=== PATIENT | male | born 1985 | race Caucasian/White ===

== ENCOUNTER → 2018-02-01 | Outpatient (CLI) | payer OTHER | LOC: M PAIN 09:45 | DX: M96.1 Postlaminectomy syndrome, not elsewhere classified (principal); M54.16 Radiculopathy, lumbar region; M46.1 Sacroiliitis, not elsewhere classified; M10.9 Gout, unspecified; K21.9 Gastro-esophageal reflux disease without esophagitis; Z79.899 Other long term (current) drug therapy | CPT/HCPCS: G0463 ==

== ENCOUNTER → 2018-02-18 | Outpatient (CLI) | payer OTHER ==
[~2018-02-18] MED LIST: BUPIVACAINE HCL 0.25% 30 ML VIAL As Ordered; ISOVUE-M 300 61% 15ML VIAL (Q9967) As Ordered; LIDOCAINE 1% SDV INJ 30 ML VIAL As Ordered; TRIAMCINOLONE ACETONIDE SUSP 40 MG/ML VIAL (J3301) As Ordered; diazePAM 5 MG TAB As Ordered; oxyCODONE 5MG TAB As Ordered
== END ==
LOC: M PAIN 14:30
DX: M46.1 Sacroiliitis, not elsewhere classified (principal); M10.9 Gout, unspecified; G47.30 Sleep apnea, unspecified; K21.9 Gastro-esophageal reflux disease without esophagitis; F43.10 Post-traumatic stress disorder, unspecified; Z79.891 Long term (current) use of opiate analgesic; Z79.899 Other long term (current) drug therapy; Z87.891 Personal history of nicotine dependence
CPT/HCPCS: J3301

== ENCOUNTER → 2018-04-01 | Outpatient (CLI) | payer OTHER | LOC: M PAIN 08:45 | DX: M96.1 Postlaminectomy syndrome, not elsewhere classified (principal); M54.16 Radiculopathy, lumbar region; M46.1 Sacroiliitis, not elsewhere classified; G47.30 Sleep apnea, unspecified; K21.9 Gastro-esophageal reflux disease without esophagitis; F43.10 Post-traumatic stress disorder, unspecified; Z79.899 Other long term (current) drug therapy; Z79.1 Long term (current) use of non-steroidal anti-inflammatories (NSAID) | CPT/HCPCS: G0463 ==

== ENCOUNTER → 2018-04-06 | Outpatient (CLI) | payer OTHER | LOC: M RAD 10:58 | DX: M96.1 Postlaminectomy syndrome, not elsewhere classified (principal) | CPT/HCPCS: 73721 ==

== ENCOUNTER → 2018-04-18 | Outpatient (CLI) | payer OTHER | LOC: M PAIN 09:45 | DX: M87.051 Idiopathic aseptic necrosis of right femur (principal); M54.16 Radiculopathy, lumbar region; M46.1 Sacroiliitis, not elsewhere classified; G47.30 Sleep apnea, unspecified; F43.10 Post-traumatic stress disorder, unspecified; F17.220 Nicotine dependence, chewing tobacco, uncomplicated; Z79.899 Other long term (current) drug therapy; Z87.39 Personal history of other diseases of the musculoskeletal system and connective tissue | CPT/HCPCS: G0463 ==

== ENCOUNTER → 2018-05-31 | Outpatient (CLI) | payer OTHER ==
--- NOTE | 2018-06-20 01:56 | ECWPNPC ---
PATIENT NAME: ISADORA MOLINA : 1985 GENDER: MALE VISIT DATE: 05/31/2018 DISCHARGE DATE: 05/31/18 1553 VISIT LOCKED DATE TIME: PHYSICIAN: NICCI BALBUENA RESOURCE: NICCI BALBUENA REASON FOR APPOINTMENT 1. BILATERAL HIP PAIN HISTORY OF PRESENT ILLNESS DEPRESSION SCREENING: PHQ-2 IN LAST TWO WEEKS HAVE YOU BEEN BOTHERED BY LITTLE INTEREST OR PLEASURE IN DOING THINGSNO FEELING DOWN, DEPRESSED, OR HOPELESSNO HISTORY OF PRESENT ILLNESS: HERE FOR F/U AND MEDICINE MANAGEMENT FOR BILATERAL HIP PAIN WITH HISTORY OF AVASCULAR NECROSIS.SCHEDULED FOR TOTAL RIGHT HIP REPLACEMENT IN THE NEXT TWO WEEKS.RAING LOW BACK AND RIGHT HIPPAIN 02/01.DESCRIBES PAIN SHARP AND SHOOTING.PAIN AWAKENS HIM FROM SLEEP. PAIN THE PATIENT DESCRIBES THE PAIN... FALL RISK SCREENING: SCREENING :NO FALLS IN THE PAST YEAR CURRENT MEDICATIONS TAKING ALLOPURINOL 300 MG TABLET 2 TABLET ORALLY ONCE A DAY TAKING COLCHICINE 0.6 MG TABLET ONE TAB ORALLY EVERY 12 HOURS PRN PAIN TAKING TIZANIDINE HCL 2 MG TABLET 1 TABLET NEEDED ORALLY TAKE 1 IN AM AND 2 AT BEDTIME TAKING TRAMADOL HCL 50 MG TABLET 1 -2 TABLETS ORALLY EVERY 6 HRS PRN PAIN MDD=3 TAKING PERCOCET 10-325 MG TABLET 1 TABLET NEEDED ORALLY BID NOT-TAKING TRAMADOL HCL 50 MG TABLET 1 -2 TABLET NEEDED ORALLY Q 8SRS PRN PAIN MDD=3, NOTES: DUPLICATE MEDICATION LIST REVIEWED AND RECONCILED WITH THE PATIENT PAST MEDICAL HISTORY CHRONIC LOW BACK PAIN GOUT SLEEP APNEA WITH CPAP REFLUX PTSD ALLERGIES N.K.D.A. SURGICAL HISTORY SPINAL FUSION X 2 FAMILY HISTORY MATERNAL GRAND FATHER: DIAGNOSED WITH HEART DISEASE MATERNAL GRAND MOTHER: DIAGNOSED WITH DIABETES SOCIAL HISTORY GENERAL: TOBACCO USE ARE YOU A:NONSMOKER ADDITIONAL FINDINGS: TOBACCO USER QUIT CHEWING 2-3 WEEKS AGO ALCOHOL SCREENING DID YOU HAVE A DRINK CONTAINING ALCOHOL IN THE PAST YEAR?YES HOW OFTEN DID YOU HAVE A DRINK CONTAINING ALCOHOL IN THE PAST YEAR?MONTHLY OR LESS (1 POINT) POINTS1 INTERPRETATIONNEGATIVE RECREATIONAL DRUG USE DRUG USE?NO CAFFEINE CAFFEINE USE?YES HOW OFTEN AND HOW MUCH? [employer] EPISCOPAL [id number] NONE LANGUAGE LANGUAGES SPOKEN:GUYANESE LEARNING BARRIERS / SPECIAL NEEDS BARRIERS TO LEARNING?NO HEARING IMPAIRED?NO VISION IMPAIRED?NO COGNITIVELY IMPAIRED?NO READINESS TO LEARN?YES LEARNING PREFERENCES?NO LEARNING CAPABILITIES PRESENT?YES EMOTIONAL BARRIERS?NO SPECIAL DEVICES?YES :[facility] PFS, CLERGY, PUBLIC HEALTH REFERRALS PFS REFERRAL NEEDED?NO CLERGY REFERRAL NEEDED?NO PUBLIC HEALTH REFERRAL NEEDED?NO WAS THE PROVIDER NOTIFIED OF ANY PERTINENT INFO?NO HAS THE PATIENT BEEN EDUCATED REGARDING HIS/HER PLAN OF CARE?YES HAS THE PATIENT BEEN EDUCATED REGARDING PAIN, THE RISK FOR PAIN, THE IMPORTANCE OF EFFECTIVE PAIN MANAGEMENT, AND THE PAIN ASSESSMENT PROCESS?YES ADVANCE DIRECTIVE ADVANCE DIRECTIVE DISCUSSED WITH PATIENT:YES PT HAS NO ADVANCED DIRECTIVES, DECLINES INFORMATION ON HCP AT THIS TIME REVIEWED WITH PT 02/18/18 7967 LASREVIEWED WITH PATIENT 04/18/18 1009 JSREVIEWED WITH PATIENT 05/31/18 1523 JS. HOSPITALIZATION/MAJOR DIAGNOSTIC PROCEDURE SEE ABOVE REVIEW OF SYSTEMS REVIEWED BY: PROVIDER: NICCI JOY . CONSTITUTIONAL: ANY CHANGE IN YOUR MEDICAL CONDITION? NO . CHILLS NO . FEVER NO . INFECTION: DO YOU HAVE NEW INFECTIONS? NO . DO YOU HAVE HISTORY OF MRSA? NO . MUSCULOSKELETAL: ANY NEW PATTERNS OF PAIN OR NUMBNESS? PATIENT STATES PAIN 7-02/01 TO LOWER BACK AND RIGHT HIP, DOWN RIGHT LEG. STATES TOTAL HIP REPLACEMENT TO RIGHT HIP SCHEDULED 06/11/18 . GASTROENTEROLOGY: ANY NEW CHANGE IN BOWEL CONTROL? NO . GENITOURINARY: ANY NEW CHANGE IN BLADDER CONTROL? NO . IS THERE A CHANCE YOU COULD BE ? NO . HEMATOLOGY/LYMPH: DO YOU TAKE ANY BLOOD THINNERS? (FOR EXAMPLE- COUMADIN, PLAVIX, AGGRENOX, PLATEL, PRADAXA, OR XARELTO) NO . WHEN WAS YOUR LAST DOSE? DATE: TIME: . NEUROLOGY: HAVE YOU FALLEN IN THE PAST 6 MONTHS? NO . ANY NEW EXTREMITY NUMBNESS OR WEAKNESS? NO . CARDIOLOGY: DO YOU HAVE A PACEMAKER OR DEFIBRILLATOR? NO . RESPIRATORY: HAVE YOU BEEN SICK IN THE PAST WEEK? NO . FEVER NO . FLU LIKE SYMPTOMS? NO . COUGH NO . INTEGUMENTARY: DO YOU HAVE ANY RASHES OR OPEN SORES? NO . ALLERGIC/IMMUNO: ARE YOU ALLERGIC TO SHELLFISH OR IV DYE? NO . ANY NEW ALLERGIES? NO . PSYCHIATRIC: DO YOU HAVE THOUGHTS OF HURTING YOURSELF OR SOMEONE ELSE? NO . ARE YOU ABUSED, NEGLECTED, OR IN AN UNSAFE ENVIRONMENT? NO . ENDOCRINOLOGY: ARE YOU DIABETIC? NO . OTHER: DO YOU NEED ANY PRESCRIPTIONS? NO . IF YES, PLEASE LIST: ____ . ANY NEW PROBLEMS WITH YOUR MEDICATIONS? NO . WHEN DID YOU LAST EAT? ____ . WHEN DID YOU LAST DRINK? ____ . WHAT DID YOU LAST DRINK? ____ . NAME OF PERSON DRIVING YOU HOME? ____ . DO YOU HAVE ANY OTHER QUESTIONS OR CONCERNS NO . VITAL SIGNS WT 239 LBS, HT 67 IN, BMI 37.43 INDEX, BP 135/77 MM HG, HR 89 /MIN, RR 16 /MIN, TEMP 97.1 F, OXYGEN SAT % 95, SAFE IN ENV? (Y/N) YES, REVIEWED BY: EM. EXAMINATION GENERAL EXAMINATION: GENERAL APPEARANCE:AWAKE,ALERT ,PLEAASANT . PSYCHAFFECT NORMAL . LUNGS:LUNG ALEMAN ARE CLEAR TO AUSCULTATION BILATERALLY. GOOD MOVEMENT OF AIR . HEART:S1, S2 IN A REGULAR RATE AND RHYTHM. NO SIGNIFICANT MURMURS, RUBS OR GALLOPS NOTED . MUSCULOSKELETAL:MUSCLE STRENGTH TESTING 5/5 BILATERAL LOWER EXTREMITIES. LUMBAR SACRAL SPINEPALPATION: + FOR PAIN OVER L/S SPINE. + FOR PAIN OVER L/S PARSPINALS. 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 (REF # [id number] ) BRINGS IN MEDICATIONS WHICH IS APPROPRIATE FOR WHAT WAS DISPENSED. RECENT URINE TOXICOLOGY REVIEWED. NO UNAUTHORIZED MEDICATIONS. NO ILLICIT SUBSTANCES AND PRESCRIBED MEDICATIONS WERE PRESENT. , RISKS AND BENEFITS OF NARCOTIC/OPIOD MEDICATIONS WERE REVIEWED WITH PATIENT - THIS INCLUDES BUT IS NOT LIMITED TO RISK OF DEPENDANCE/DEVELOPMENT OF ADDICTION, MOOD DISTURBANCE AND DEPRESSION, OSTEOPOROSIS, HORMONAL AND LABIDAL CHANGES, RESPIRATORY DEPRESSION AND . PATIENT IS ADVISED NOT TO DRIVE OR DRINK ALCOHOL WHILE ON THESE MEDICATIONS. PREVENTIVE MEDICINE PAIN CLINIC TEACHING: MEDICATIONS PRINTED AND REVIEWED INFORMATION ON NEW MEDICATION, AMITRIPTYLINE. PATIENT VERBALIZED AN UNDERSTANDING. ARABELLA CAMARGO 05/31/2018 3:54:06 PM > . DISPOSITION & COMMUNICATION FOLLOW UP 3 MONTHS ELECTRONICALLY SIGNED BY BENITA HOOKER ON 06/19/2018 AT 01:14 PM EST DISCLAIMER : THIS IS A VISIT SUMMARY EXTRACTED FROM THE [employer] CHART. IT IS NOT A COPY OF THE [employer] PROGRESS NOTE. ESHTER
== END ==
LOC: M PAIN 15:15
PROVIDERS: ATTEND Nurse Practitioner Family
DX: M87.051 Idiopathic aseptic necrosis of right femur (principal); G47.30 Sleep apnea, unspecified; F43.10 Post-traumatic stress disorder, unspecified; F17.220 Nicotine dependence, chewing tobacco, uncomplicated; E66.01 Morbid (severe) obesity due to excess calories; Z68.37 Body mass index [BMI] 37.0-37.9, adult; Z79.891 Long term (current) use of opiate analgesic; Z79.899 Other long term (current) drug therapy; Z87.39 Personal history of other diseases of the musculoskeletal system and connective tissue

== ENCOUNTER → 2018-08-29 | Outpatient (CLI) | payer OTHER ==
--- NOTE | 2018-09-16 00:18 | ECWPNPC ---
PATIENT NAME: ISADORA MOLINA : 1985 GENDER: MALE VISIT DATE: 08/29/2018 DISCHARGE DATE: 08/29/18 1614 VISIT LOCKED DATE TIME: PHYSICIAN: NICCI BALBUENA RESOURCE: NICCI BALBUENA REASON FOR APPOINTMENT 1. BILATERAL HIP PAIN HISTORY OF PRESENT ILLNESS HISTORY OF PRESENT ILLNESS: HERE FOR F/U OF CHRONIC LOW BACK PAIN.HAD RIGHT HIP REPLACEMENT ON 05/2018.RIGHT HIP FEELS BETTER.CONTINUES TO HAVE SEVERE LOW BACK PAIN.HX 2 LUMBAR FUSIONS L4/5 AND ONE L5/S1.LAST SURGERY APPROXIMATLEY 1 YEAR AGO.HAS LOW BACK PAIN WITH SHOOTING PAIN BILATERAL LOWER EXTREMITIES.RATING PAIN VAS 6/10. PAIN THE PATIENT DESCRIBES THE PAIN... FALL RISK SCREENING: SCREENING : NO FALLS IN THE PAST YEAR. CURRENT MEDICATIONS TAKING ALLOPURINOL 300 MG TABLET 2 TABLET ORALLY ONCE A DAY TAKING COLCHICINE 0.6 MG TABLET ONE TAB ORALLY EVERY 12 HOURS PRN PAIN TAKING TIZANIDINE HCL 2 MG TABLET 1 TABLET NEEDED ORALLY TAKE 1 IN AM AND 2 AT BEDTIME TAKING PERCOCET 10-325 MG TABLET 1 TABLET NEEDED ORALLY BID TAKING AMITRIPTYLINE HCL 25 MG TABLET 1 TO 2 TAB ORALLY BEFORE BEDTIME TAKING TRAMADOL HCL 50 MG TABLET 1 -2 TABLETS ORALLY EVERY 6 HRS PRN PAIN MDD=3 NOT-TAKING TRAMADOL HCL 50 MG TABLET 1 -2 TABLET NEEDED ORALLY Q 8SRS PRN PAIN MDD=3, NOTES: DUPLICATE MEDICATION LIST REVIEWED AND RECONCILED WITH THE PATIENT PAST MEDICAL HISTORY CHRONIC LOW BACK PAIN GOUT SLEEP APNEA WITH CPAP REFLUX PTSD ALLERGIES N.K.D.A. SURGICAL HISTORY SPINAL FUSION X 2 TOTAL RIGHT HIP FAMILY HISTORY MATERNAL GRAND FATHER: DIAGNOSED WITH HEART DISEASE MATERNAL GRAND MOTHER: DIABETES SOCIAL HISTORY GENERAL: TOBACCO USE ARE YOU A:NONSMOKER ADDITIONAL FINDINGS: TOBACCO USER QUIT CHEWING 2-3 WEEKS AGO ALCOHOL SCREENING DID YOU HAVE A DRINK CONTAINING ALCOHOL IN THE PAST YEAR?YES HOW OFTEN DID YOU HAVE A DRINK CONTAINING ALCOHOL IN THE PAST YEAR?MONTHLY OR LESS (1 POINT) POINTS1 INTERPRETATIONNEGATIVE RECREATIONAL DRUG USE DRUG USE?NO CAFFEINE CAFFEINE USE?YES HOW OFTEN AND HOW MUCH? [employer]ERS VOODOO [id number] NONE LANGUAGE LANGUAGES SPOKEN:UPPER SORBIAN LEARNING BARRIERS / SPECIAL NEEDS BARRIERS TO LEARNING?NO HEARING IMPAIRED?NO VISION IMPAIRED?NO COGNITIVELY IMPAIRED?NO READINESS TO LEARN?YES LEARNING PREFERENCES?NO LEARNING CAPABILITIES PRESENT?YES EMOTIONAL BARRIERS?NO SPECIAL DEVICES?YES :[facility] PFS, CLERGY, PUBLIC HEALTH REFERRALS PFS REFERRAL NEEDED?NO CLERGY REFERRAL NEEDED?NO PUBLIC HEALTH REFERRAL NEEDED?NO WAS THE PROVIDER NOTIFIED OF ANY PERTINENT INFO?NO HAS THE PATIENT BEEN EDUCATED REGARDING HIS/HER PLAN OF CARE?YES HAS THE PATIENT BEEN EDUCATED REGARDING PAIN, THE RISK FOR PAIN, THE IMPORTANCE OF EFFECTIVE PAIN MANAGEMENT, AND THE PAIN ASSESSMENT PROCESS?YES ADVANCE DIRECTIVE ADVANCE DIRECTIVE DISCUSSED WITH PATIENT:YES PT HAS NO ADVANCED DIRECTIVES, DECLINES INFORMATION ON HCP AT THIS TIME REVIEWED WITH PT 02/18/18 5301 LASREVIEWED WITH PATIENT 04/18/18 1009 JSREVIEWED WITH PATIENT 05/31/18 1523 JS. HOSPITALIZATION/MAJOR DIAGNOSTIC PROCEDURE SEE ABOVE REVIEW OF SYSTEMS REVIEWED BY: PROVIDER: NICCI JOY . CONSTITUTIONAL: ANY CHANGE IN YOUR MEDICAL CONDITION? NO . CHILLS NO . FEVER NO . INFECTION: DO YOU HAVE NEW INFECTIONS? NO . DO YOU HAVE HISTORY OF MRSA? NO . MUSCULOSKELETAL: ANY NEW PATTERNS OF PAIN OR NUMBNESS? NO . GASTROENTEROLOGY: ANY NEW CHANGE IN BOWEL CONTROL? NO . GENITOURINARY: ANY NEW CHANGE IN BLADDER CONTROL? NO . IS THERE A CHANCE YOU COULD BE ? NO . HEMATOLOGY/LYMPH: DO YOU TAKE ANY BLOOD THINNERS? (FOR EXAMPLE- COUMADIN, PLAVIX, AGGRENOX, PLATEL, PRADAXA, OR XARELTO) NO . WHEN WAS YOUR LAST DOSE? DATE: TIME: . NEUROLOGY: HAVE YOU FALLEN IN THE PAST 12 MONTHS? YES SLIPPED ON ICE 2 DAYS AGO , YES . ANY NEW EXTREMITY NUMBNESS OR WEAKNESS? NO . CARDIOLOGY: DO YOU HAVE A PACEMAKER OR DEFIBRILLATOR? NO . RESPIRATORY: HAVE YOU BEEN SICK IN THE PAST WEEK? NO . FEVER NO . FLU LIKE SYMPTOMS? NO . COUGH NO . INTEGUMENTARY: DO YOU HAVE ANY RASHES OR OPEN SORES? NO . ALLERGIC/IMMUNO: ARE YOU ALLERGIC TO IV DYE? NO . ANY NEW ALLERGIES? NO . PSYCHIATRIC: DO YOU HAVE THOUGHTS OF HURTING YOURSELF OR SOMEONE ELSE? NO . ARE YOU ABUSED, NEGLECTED, OR IN AN UNSAFE ENVIRONMENT? NO . ENDOCRINOLOGY: ARE YOU DIABETIC? NO . OTHER: DO YOU NEED ANY PRESCRIPTIONS? YES PT REQUESTING OXY CODONE . IF YES, PLEASE LIST: ____ . ANY NEW PROBLEMS WITH YOUR MEDICATIONS? NO . WHEN DID YOU LAST EAT? ____ . WHEN DID YOU LAST DRINK? ____ . WHAT DID YOU LAST DRINK? ____ . NAME OF PERSON DRIVING YOU HOME? ____ . DO YOU HAVE ANY OTHER QUESTIONS OR CONCERNS NO . EXAMINATION GENERAL EXAMINATION: GENERAL APPEARANCE:AWAKE,ALERT ,PLEAASANT . PSYCHAFFECT NORMAL . LUNGS:LUNG ALEMAN ARE CLEAR TO AUSCULTATION BILATERALLY. GOOD MOVEMENT OF AIR . HEART:S1, S2 IN A REGULAR RATE AND RHYTHM. NO SIGNIFICANT MURMURS, RUBS OR GALLOPS NOTED . MUSCULOSKELETAL:MUSCLE STRENGTH TESTING 5/5 BILATERAL LOWER EXTREMITIES. LUMBAR SACRAL SPINEPALPATION: + FOR PAIN OVER L/S SPINE. + FOR PAIN OVER L/S PARSPINALS.WELL HEALED SURGICAL SCAR L/S SPINE. ASSESSMENTS POST LAMINECTOMY SYNDROME - M96.1 (PRIMARY) TREATMENT POST LAMINECTOMY SYNDROME CONTINUE TRAMADOL HCL TABLET, 50 MG, 1 -2 TABLETS, ORALLY, EVERY 6 HRS PRN PAIN MDD=3 CONTINUE AMITRIPTYLINE HCL TABLET, 25 MG, 1 TO 2 TAB, ORALLY, BEFORE BEDTIME CONTINUE TIZANIDINE HCL TABLET, 2 MG, 1 TABLET NEEDED, ORALLY, TAKE 1 IN AM AND 2 AT BEDTIME NOTES: DCS INFO GIVEN. PROCEDURE CODES FA211 ESTABILISHED PATIENT [facility] CHARGE DISPOSITION & COMMUNICATION FOLLOW UP DR GONSALVES TALK ABOUT DCS ELECTRONICALLY SIGNED BY BENITA HOOKER ON 09/15/2018 AT 03:50 PM EDT DISCLAIMER : THIS IS A VISIT SUMMARY EXTRACTED FROM THE [employer] CHART. IT IS NOT A COPY OF THE [employer] PROGRESS NOTE. ESTHER
== END ==
LOC: M PAIN 14:30
PROVIDERS: ATTEND Nurse Practitioner Family
DX: M96.1 Postlaminectomy syndrome, not elsewhere classified (principal); G47.30 Sleep apnea, unspecified; F43.10 Post-traumatic stress disorder, unspecified; F17.220 Nicotine dependence, chewing tobacco, uncomplicated; Z79.891 Long term (current) use of opiate analgesic; Z79.899 Other long term (current) drug therapy; Z87.39 Personal history of other diseases of the musculoskeletal system and connective tissue; Z96.641 Presence of right artificial hip joint

== ENCOUNTER → 2018-09-16 | Outpatient (CLI) | payer OTHER ==
--- NOTE | 2018-09-29 23:32 | ECWPNPC ---
PATIENT NAME: ISADORA MOLINA : 1985 GENDER: MALE VISIT DATE: 09/16/2018 DISCHARGE DATE: 09/16/18 1141 VISIT LOCKED DATE TIME: PHYSICIAN: SHE GONSALVES MD RESOURCE: SHE GONSALVES MD REASON FOR APPOINTMENT 1. BILATERAL HIP PAIN PER LB HISTORY OF PRESENT ILLNESS HISTORY OF PRESENT ILLNESS: PAIN THE PATIENT DESCRIBES THE PAIN... 33 YEAR OLD MALE PATIENT WITH A HISTORY OF CHRONIC LOW BACK PAIN. THE PATIENT DESCRIBES THE PAIN ACHING, SHARP, STABBING, SHOOTING, AND CONTINUOUS WITH A PAIN SCORE OF 5-8/10 DEPENDING ON PHYSICAL ACTIVITY. THE PATIENT HAS A HISTORY OF BACK SURGERY, BUT SAYS THE PAIN PERSISTED AFTER THE SURGERY. THE PATIENT SAYS THAT HE ALSO HAS PAIN IN HIS HIPS AND HAD A RIGHT HIP REPLACEMENT IN MAY. THE PATIENT HAS A HISTORY OF VASCULAR NECROSIS OF THE FEMUR. PATIENT DENIES UNEXPLAINABLE WEIGHT LOSS, FEVER, CHILLS, NEW CHANGES ON HIS URINARY OR BOWEL CONTROL. FALL RISK SCREENING: SCREENING : NO FALLS IN THE PAST YEAR. CURRENT MEDICATIONS TAKING ALLOPURINOL 300 MG TABLET 2 TABLET ORALLY ONCE A DAY TAKING COLCHICINE 0.6 MG TABLET ONE TAB ORALLY EVERY 12 HOURS PRN PAIN TAKING PERCOCET 10-325 MG TABLET 1 TABLET NEEDED ORALLY BID TAKING TRAMADOL HCL 50 MG TABLET 1 -2 TABLETS ORALLY EVERY 6 HRS PRN PAIN MDD=3 TAKING AMITRIPTYLINE HCL 25 MG TABLET 1 TO 2 TAB ORALLY BEFORE BEDTIME TAKING TIZANIDINE HCL 2 MG TABLET 1 TABLET NEEDED ORALLY TAKE 1 IN AM AND 2 AT BEDTIME NOT-TAKING TRAMADOL HCL 50 MG TABLET 1 -2 TABLET NEEDED ORALLY Q 8SRS PRN PAIN MDD=3, NOTES: DUPLICATE MEDICATION LIST REVIEWED AND RECONCILED WITH THE PATIENT PAST MEDICAL HISTORY CHRONIC LOW BACK PAIN GOUT SLEEP APNEA WITH CPAP REFLUX PTSD ALLERGIES N.K.D.A. SURGICAL HISTORY SPINAL FUSION X 2 TOTAL RIGHT HIP FAMILY HISTORY MATERNAL GRAND FATHER: DIAGNOSED WITH HEART DISEASE MATERNAL GRAND MOTHER: DIABETES SOCIAL HISTORY GENERAL: TOBACCO USE ARE YOU A:NONSMOKER ADDITIONAL FINDINGS: TOBACCO USER QUIT CHEWING 2-3 WEEKS AGO LATEX QUESTIONNAIRE LATEX ALLERGY : HAVE YOU EVER DEVELOPED ANY TYPE OF REACTION AFTER HANDLING LATEX PRODUCTS SUCH RUBBER GLOVES, CONDOMS, DIAPHRAGMS, BALLOONS, SOCKS, OR UNDERWEAR?NO LATEX ALLERGY : HAVE YOU EVER DEVELOPED ANY TYPE OF REACTION DURING OR AFTER DENTAL APPOINTMENT, VAGINAL/RECTAL EXAMINATION, SURGICAL PROCEDURE, OR ANY OTHER EXPOSURE?NO LATEX RISK : HAVE YOU EVER HAD ANY DIFFICULTY BREATHING OR HIVES AFTER EATING OR HANDLING ANY FRUITS, OR VEGETABLES; SUCH KIWI, BANANAS, STONE FRUITS, OR CHESTNUTSNO LATEX RISK : DO YOU HAVE A PREVIOUS PERSONAL HISTORY OF MORE THAN NINE SURGERIES, SPINA BIFIDA, OR REPEATED CATHERTIZATIONS? NO LATEX RISK : ARE YOU FREQUENTLY EXPOSED TO LATEX PRODUCTS IN YOUR OCCUPATION?NO DATE ASKED : 09/16/2018 ALCOHOL SCREENING DID YOU HAVE A DRINK CONTAINING ALCOHOL IN THE PAST YEAR?YES HOW OFTEN DID YOU HAVE A DRINK CONTAINING ALCOHOL IN THE PAST YEAR?MONTHLY OR LESS (1 POINT) POINTS1 INTERPRETATIONNEGATIVE RECREATIONAL DRUG USE DRUG USE?NO CAFFEINE CAFFEINE USE?YES HOW OFTEN AND HOW MUCH? [employer] [id number] NONE LANGUAGE LANGUAGES SPOKEN:[place] R[place] LEARNING BARRIERS / SPECIAL NEEDS BARRIERS TO LEARNING?NO HEARING IMPAIRED?NO VISION IMPAIRED?NO COGNITIVELY IMPAIRED?NO READINESS TO LEARN?YES LEARNING PREFERENCES?NO LEARNING CAPABILITIES PRESENT?YES EMOTIONAL BARRIERS?NO SPECIAL DEVICES?YES :[facility] PFS, CLERGY, PUBLIC HEALTH REFERRALS PFS REFERRAL NEEDED?NO CLERGY REFERRAL NEEDED?NO PUBLIC HEALTH REFERRAL NEEDED?NO WAS THE PROVIDER NOTIFIED OF ANY PERTINENT INFO?NO HAS THE PATIENT BEEN EDUCATED REGARDING HIS/HER PLAN OF CARE?YES HAS THE PATIENT BEEN EDUCATED REGARDING PAIN, THE RISK FOR PAIN, THE IMPORTANCE OF EFFECTIVE PAIN MANAGEMENT, AND THE PAIN ASSESSMENT PROCESS?YES ADVANCE DIRECTIVE ADVANCE DIRECTIVE DISCUSSED WITH PATIENT:YES PT HAS NO ADVANCED DIRECTIVES, DECLINES INFORMATION ON HCP AT THIS TIME 09/16/18 REVIEWED WITH PT 02/18/18 9665 LASREVIEWED WITH PATIENT 04/18/18 1009 JSREVIEWED WITH PATIENT 05/31/18 1523 JSREVIEWED WITH PT 09/16/18 0947 BV. HOSPITALIZATION/MAJOR DIAGNOSTIC PROCEDURE SEE ABOVE REVIEW OF SYSTEMS REVIEWED BY: PROVIDER: SHE GONSALVES MD . CONSTITUTIONAL: ANY CHANGE IN YOUR MEDICAL CONDITION? NO . CHILLS NO . FEVER NO . INFECTION: DO YOU HAVE NEW INFECTIONS? NO . DO YOU HAVE HISTORY OF MRSA? NO . MUSCULOSKELETAL: ANY NEW PATTERNS OF PAIN OR NUMBNESS? NO . GASTROENTEROLOGY: ANY NEW CHANGE IN BOWEL CONTROL? NO . GENITOURINARY: ANY NEW CHANGE IN BLADDER CONTROL? NO . IS THERE A CHANCE YOU COULD BE ? NO . HEMATOLOGY/LYMPH: DO YOU TAKE ANY BLOOD THINNERS? (FOR EXAMPLE- COUMADIN, PLAVIX, AGGRENOX, PLATEL, PRADAXA, OR XARELTO) NO . WHEN WAS YOUR LAST DOSE? DATE: TIME: . NEUROLOGY: HAVE YOU FALLEN IN THE PAST 12 MONTHS? NO . ANY NEW EXTREMITY NUMBNESS OR WEAKNESS? NO . CARDIOLOGY: DO YOU HAVE A PACEMAKER OR DEFIBRILLATOR? NO . RESPIRATORY: HAVE YOU BEEN SICK IN THE PAST WEEK? NO . FEVER NO . FLU LIKE SYMPTOMS? NO . COUGH NO . INTEGUMENTARY: DO YOU HAVE ANY RASHES OR OPEN SORES? NO . ALLERGIC/IMMUNO: ARE YOU ALLERGIC TO IV DYE? NO . ANY NEW ALLERGIES? NO . PSYCHIATRIC: DO YOU HAVE THOUGHTS OF HURTING YOURSELF OR SOMEONE ELSE? NO . ARE YOU ABUSED, NEGLECTED, OR IN AN UNSAFE ENVIRONMENT? NO . ENDOCRINOLOGY: ARE YOU DIABETIC? NO . OTHER: DO YOU NEED ANY PRESCRIPTIONS? YES, PERCOCET . IF YES, PLEASE LIST: ____ . ANY NEW PROBLEMS WITH YOUR MEDICATIONS? NO . WHEN DID YOU LAST EAT? ____ . WHEN DID YOU LAST DRINK? ____ . WHAT DID YOU LAST DRINK? ____ . NAME OF PERSON DRIVING YOU HOME? ____ . DO YOU HAVE ANY OTHER QUESTIONS OR CONCERNS NO . VITAL SIGNS WT 234.8 LBS, HT 67 IN, BMI 36.77 INDEX, BP 159/89 MM HG, HR 100 /MIN, RR 18 /MIN, TEMP 98.5 F, OXYGEN SAT % 95%, NA INITIALS AW 0940, REVIEWED BY: BV. EXAMINATION GENERAL EXAMINATION: PATIENT IS ALERT O X 3 AND COOPERATIVE. PAIN INCREASES OVER THE LUMBAR FACET JOINTS WITH EXTENSION AND LATERAL ROTATION OF THE BACK. MRI OF THE LUMBAR SPINE DONE ON 11/05/2017 SHOWS POST LAMINECTOMY CHANGES, FACET ARTHROPATHY CHANGES, AND AN ENLARGED SPLEEN. ASSESSMENTS SPONDYLOSIS OF LUMBAR REGION WITHOUT MYELOPATHY OR RADICULOPATHY - M47.816 (PRIMARY) LUMBAR POST-LAMINECTOMY SYNDROME - M96.1 TREATMENT SPONDYLOSIS OF LUMBAR REGION WITHOUT MYELOPATHY OR RADICULOPATHY CLINICAL NOTES: WE DISCUSSED SEVERAL ISSUES WITH MR. MOLINA'S PAIN MANAGEMENT CASE. DUE TO THE LUMBAR SPONDYLOSIS, I WOULD LIKE TO MOVE FORWARD WITH A BILATERAL L3-L4, L4-L5 DIAGNOSTIC LUMBAR FACET BLOCK _#1 TO CONSIDER RADIOFREQUENCY. WE DISCUSSED THE BENEFITS, RISKS, AND ALTERNATIVES OF THE PROCEDURE AND THE PATIENT WOULD LIKE TO PROCEED. I WOULD LIKE TO DISCUSS THE CASE WITH THE PATIENT'S ORTHOPEDIC SURGEON REGARDING THE USE OF STEROIDS. THE PATIENT WILL DISCUSS HIS ENLARGED SPLEEN WITH HIS PRIMARY CARE PHYSICIAN. THE PATIENT MAY CONSIDER A DCS TRIAL IN THE FUTURE. THE PATIENT WILL FOLLOW UP WITH A NURSE PRACTITIONER 2 WEEKS AFTER THE PROCEDURE. INSTRUCTIONS WERE GIVEN, QUESTIONS WERE ANSWERED, PATIENT REPORTS UNDERSTANDING AND AGREES WITH THE PLAN. I, ANGI JACKSON, DOCUMENTED THE ABOVE INFORMATION ACTING A SCRIBE FOR DR. GONSALVES. I HAVE REVIEWED THE ABOVE DOCUMENT, WRITTEN BY ANGI HENNING AND I VERIFY THAT IT IS ACCURATE. . OTHERS NOTES: FACET JOINT INJECTION: YOUR EXPERIENCE MATERIAL WAS PRINTED. PROCEDURE CODES FA211 ESTABILISHED PATIENT [facility] CHARGE G8427 CURRENT MEDS W/DOSAGES DOCUMENTED G8730 PAIN ASSESS POS TOOL F/U PLAN DOC DISPOSITION & COMMUNICATION FOLLOW UP 3 WEEKS ELECTRONICALLY SIGNED BY SHE GONSALVES MD, MD ON 09/29/2018 AT 03:27 PM EDT DISCLAIMER : THIS IS A VISIT SUMMARY EXTRACTED FROM THE [employer] CHART. IT IS NOT A COPY OF THE [employer] PROGRESS NOTE. MTDD
== END ==
LOC: M PAIN 09:30
PROVIDERS: ATTEND Anesthesiology
DX: M47.816 Spondylosis without myelopathy or radiculopathy, lumbar region (principal); M96.1 Postlaminectomy syndrome, not elsewhere classified; G47.30 Sleep apnea, unspecified; Z79.891 Long term (current) use of opiate analgesic; Z79.899 Other long term (current) drug therapy; Z87.891 Personal history of nicotine dependence

== ENCOUNTER → 2018-09-19 | Outpatient (CLI) | payer OTHER ==
[~2018-09-19] MED LIST changes: -BUPIVACAINE HCL 0.25% 30 ML VIAL As Ordered; +BUPIVACAINE HCL 0.25% 30 ML VIAL As Ordered ONE; -ISOVUE-M 300 61% 15ML VIAL (Q9967) As Ordered; +ISOVUE-M 300 61% 15ML VIAL (Q9967) As Ordered ONE; -LIDOCAINE 1% SDV INJ 30 ML VIAL As Ordered; +LIDOCAINE 1% SDV INJ 30 ML VIAL As Ordered ONE; -TRIAMCINOLONE ACETONIDE SUSP 40 MG/ML VIAL (J3301) As Ordered; -diazePAM 5 MG TAB As Ordered; -oxyCODONE 5MG TAB As Ordered
--- NOTE | 2018-09-19 12:56 | REP ---
Partial lumbar spine series: Three views . History: Injection procedure for pain. 26 seconds of fluoroscopy time is reported. Findings: A sequence of three fluoroscopically obtained last image hold procedural spot radiographs of the lumbar spine document needle position and contrast injection associated with injection procedure. Electronically Signed by James Mejias MD 09/19/2018 12:47 P
--- NOTE | 2018-09-20 23:42 | ECWPNPC ---
PATIENT NAME: ISADORA MOLINA : 1985 GENDER: MALE VISIT DATE: 09/19/2018 DISCHARGE DATE: 09/19/18 1123 VISIT LOCKED DATE TIME: PHYSICIAN: SHE GONSALVES MD RESOURCE: SHE GONSALVES MD REASON FOR APPOINTMENT 1. L3-4 DIAG. FACET HISTORY OF PRESENT ILLNESS HISTORY OF PRESENT ILLNESS: PAIN THE PATIENT DESCRIBES THE PAIN... FALL RISK SCREENING: SCREENING :NO FALLS REPORTED IN THE LAST YEAR CURRENT MEDICATIONS TAKING ALLOPURINOL 300 MG TABLET 2 TABLET ORALLY ONCE A DAY, NOTES: 09/18/18 0930 TAKING COLCHICINE 0.6 MG TABLET ONE TAB ORALLY EVERY 12 HOURS PRN PAIN, NOTES: WEEKS AGO TAKING PERCOCET 10-325 MG TABLET 1 TABLET NEEDED ORALLY BID, NOTES: 2 WEEKS AGO TAKING TRAMADOL HCL 50 MG TABLET 1 -2 TABLETS ORALLY EVERY 6 HRS PRN PAIN MDD=3, NOTES: 09/18/18 1800 TAKING AMITRIPTYLINE HCL 25 MG TABLET 1 TO 2 TAB ORALLY BEFORE BEDTIME, NOTES: 2 DAYS AGO TAKING TIZANIDINE HCL 2 MG TABLET 1 TABLET NEEDED ORALLY TAKE 1 IN AM AND 2 AT BEDTIME, NOTES: 09/18/18 1800 NOT-TAKING TRAMADOL HCL 50 MG TABLET 1 -2 TABLET NEEDED ORALLY Q 8SRS PRN PAIN MDD=3, NOTES: DUPLICATE MEDICATION LIST REVIEWED AND RECONCILED WITH THE PATIENT PAST MEDICAL HISTORY CHRONIC LOW BACK PAIN GOUT SLEEP APNEA WITH CPAP REFLUX PTSD ALLERGIES N.K.D.A. SURGICAL HISTORY SPINAL FUSION X 2 TOTAL RIGHT HIP FAMILY HISTORY FATHER: ALIVE, DIAGNOSED WITH HYPERTENSION MOTHER: ALIVE, HYPERTENSION PATERNAL GRAND FATHER: CANCER MATERNAL GRAND FATHER: HEART DISEASE MATERNAL GRAND MOTHER: DIABETES 1 BROTHER(S) , 1 SISTER(S) - HEALTHY. 1 SON(S) - HEALTHY. GRANDFATHER - PROSTATE CANCER. SOCIAL HISTORY GENERAL: TOBACCO USE ARE YOU A:NONSMOKER ADDITIONAL FINDINGS: TOBACCO USER QUIT CHEWING 2-3 WEEKS AGO LATEX QUESTIONNAIRE LATEX ALLERGY : HAVE YOU EVER DEVELOPED ANY TYPE OF REACTION AFTER HANDLING LATEX PRODUCTS SUCH RUBBER GLOVES, CONDOMS, DIAPHRAGMS, BALLOONS, SOCKS, OR UNDERWEAR?NO LATEX ALLERGY : HAVE YOU EVER DEVELOPED ANY TYPE OF REACTION DURING OR AFTER DENTAL APPOINTMENT, VAGINAL/RECTAL EXAMINATION, SURGICAL PROCEDURE, OR ANY OTHER EXPOSURE?NO LATEX RISK : HAVE YOU EVER HAD ANY DIFFICULTY BREATHING OR HIVES AFTER EATING OR HANDLING ANY FRUITS, OR VEGETABLES; SUCH KIWI, BANANAS, STONE FRUITS, OR CHESTNUTSNO LATEX RISK : DO YOU HAVE A PREVIOUS PERSONAL HISTORY OF MORE THAN NINE SURGERIES, SPINA BIFIDA, OR REPEATED CATHERTIZATIONS? NO LATEX RISK : ARE YOU FREQUENTLY EXPOSED TO LATEX PRODUCTS IN YOUR OCCUPATION?NO DATE ASKED : 09/16/2018 ALCOHOL SCREENING DID YOU HAVE A DRINK CONTAINING ALCOHOL IN THE PAST YEAR?YES HOW OFTEN DID YOU HAVE A DRINK CONTAINING ALCOHOL IN THE PAST YEAR?MONTHLY OR LESS (1 POINT) POINTS1 INTERPRETATIONNEGATIVE RECREATIONAL DRUG USE DRUG USE?NO CAFFEINE CAFFEINE USE?YES HOW OFTEN AND HOW MUCH? [employer]ERS YAZDANISM [id number] NONE LANGUAGE LANGUAGES SPOKEN:HUNGARIAN LEARNING BARRIERS / SPECIAL NEEDS BARRIERS TO LEARNING?NO HEARING IMPAIRED?NO VISION IMPAIRED?NO COGNITIVELY IMPAIRED?NO READINESS TO LEARN?YES LEARNING PREFERENCES?NO LEARNING CAPABILITIES PRESENT?YES EMOTIONAL BARRIERS?NO SPECIAL DEVICES?YES :[facility] PFS, CLERGY, PUBLIC HEALTH REFERRALS PFS REFERRAL NEEDED?NO CLERGY REFERRAL NEEDED?NO PUBLIC HEALTH REFERRAL NEEDED?NO WAS THE PROVIDER NOTIFIED OF ANY PERTINENT INFO?NO HAS THE PATIENT BEEN EDUCATED REGARDING HIS/HER PLAN OF CARE?YES HAS THE PATIENT BEEN EDUCATED REGARDING PAIN, THE RISK FOR PAIN, THE IMPORTANCE OF EFFECTIVE PAIN MANAGEMENT, AND THE PAIN ASSESSMENT PROCESS?YES ADVANCE DIRECTIVE ADVANCE DIRECTIVE DISCUSSED WITH PATIENT:YES PT HAS NO ADVANCED DIRECTIVES, DECLINES INFORMATION ON HCP AT THIS TIME 09/19/18. REVIEWED WITH PT 02/18/18 2445 LASREVIEWED WITH PATIENT 04/18/18 1009 JSREVIEWED WITH PATIENT 05/31/18 1523 JSREVIEWED WITH PT 09/16/18 0947 BVREVIEWED WITH PATIENT 09/19/18 0906 JS. HOSPITALIZATION/MAJOR DIAGNOSTIC PROCEDURE SEE ABOVE REVIEW OF SYSTEMS REVIEWED BY: PROVIDER: . CONSTITUTIONAL: ANY CHANGE IN YOUR MEDICAL CONDITION? NO . CHILLS NO . FEVER NO . INFECTION: DO YOU HAVE NEW INFECTIONS? NO . DO YOU HAVE HISTORY OF MRSA? NO . MUSCULOSKELETAL: ANY NEW PATTERNS OF PAIN OR NUMBNESS? NO . GASTROENTEROLOGY: ANY NEW CHANGE IN BOWEL CONTROL? NO . GENITOURINARY: ANY NEW CHANGE IN BLADDER CONTROL? NO . IS THERE A CHANCE YOU COULD BE ? NO . HEMATOLOGY/LYMPH: DO YOU TAKE ANY BLOOD THINNERS? (FOR EXAMPLE- COUMADIN, PLAVIX, AGGRENOX, PLATEL, PRADAXA, OR XARELTO) NO . WHEN WAS YOUR LAST DOSE? DATE: TIME: . NEUROLOGY: HAVE YOU FALLEN IN THE PAST 12 MONTHS? NO . ANY NEW EXTREMITY NUMBNESS OR WEAKNESS? NO . CARDIOLOGY: DO YOU HAVE A PACEMAKER OR DEFIBRILLATOR? NO . RESPIRATORY: HAVE YOU BEEN SICK IN THE PAST WEEK? NO . FEVER NO . FLU LIKE SYMPTOMS? NO . COUGH NO . INTEGUMENTARY: DO YOU HAVE ANY RASHES OR OPEN SORES? NO . ALLERGIC/IMMUNO: ARE YOU ALLERGIC TO IV DYE? NO . ANY NEW ALLERGIES? NO . PSYCHIATRIC: DO YOU HAVE THOUGHTS OF HURTING YOURSELF OR SOMEONE ELSE? NO . ARE YOU ABUSED, NEGLECTED, OR IN AN UNSAFE ENVIRONMENT? NO . ENDOCRINOLOGY: ARE YOU DIABETIC? NO . OTHER: DO YOU NEED ANY PRESCRIPTIONS? NO . IF YES, PLEASE LIST: ____ . ANY NEW PROBLEMS WITH YOUR MEDICATIONS? NO . WHEN DID YOU LAST EAT? ____09/18/18 1800 . WHEN DID YOU LAST DRINK? ____09/18/18 2300 . WHAT DID YOU LAST DRINK? ____WATER . NAME OF PERSON DRIVING YOU HOME? ____DEVLIN () . DO YOU HAVE ANY OTHER QUESTIONS OR CONCERNS NO . VITAL SIGNS WT 230 LBS, HT 67 IN, BMI 36.02 INDEX, BP 136/75 MM HG, HR 85 /MIN, RR 18 /MIN, TEMP 99.1 F, OXYGEN SAT % 99%, SAFE IN ENV? (Y/N) YES, NA INITIALS AW 0905, REVIEWED BY: JS. ASSESSMENTS SPONDYLOSIS OF LUMBAR REGION WITHOUT MYELOPATHY OR RADICULOPATHY - M47.816 (PRIMARY) PROCEDURES PN LUMBAR FACET BLOCK DIAGNOSTIC PRE PROCEDURE DIAGNOSIS LUMBAR SPONDYLOSIS POST PROCEDURE DIAGNOSIS LUMBAR SPONDYLOSIS PROCEDURE BILATERAL L3-L4 FACET BLOCK DIAGNOSTIC NUMBER [address] SHE GONSALVES [place] ASSESSOR NONE ANESTHESIA LOCAL PRE PROCEDURE NOTE THE PATIENT WITH HISTORY OF CHRONIC LOW BACK PAIN. I EVALUATED THE PATIENT AND REVIEWED THE CHART. I WENT OVER THE RISKS, ALTERNATIVES, AND BENEFITS ASSOCIATED WITH THIS PROCEDURE. THE PATIENT WOULD LIKE TO PROCEED AND GAVE CONSENT TO PERFORM THE PROCEDURE. AGREED WITH THE PATIENT WE ARE DOING THIS PROCEDURE TO DETERMINE IF THE PATIENT IS A CANDIDATE FOR A RADIOFREQUENCY ABLATION OF THE FACETS JOINTS. THE PATIENT DENIES UNEXPLAINABLE WEIGHT LOSS, FEVER, CHILLS, OR NEW CHANGES IN URINARY OR BOWEL CONTROL DESCRIPTION OF PROCEDURE THE PATIENT WAS BROUGHT TO THE PROCEDURE ROOM AND PLACED IN THE PRONE POSITION. THE LUMBOSACRAL AREA WAS CLEANED WITH CHLORAPREP SOLUTION AND DRAPED ASEPTICALLY. THE PROCEDURE WAS DONE UNDER STERILE CONDITIONS. I CHECKED LATERALITY AND THE LEVEL WHERE THE PROCEDURE WAS GOING TO BE PERFORMED WITH THE PATIENT AND THE SUPPORTING STAFF AT THE MOMENT OF THE TIME OUT IN THE PROCEDURE ROOM. UNDER FLUOROSCOPIC GUIDANCE, TARGETS WERE SELECTED AT THE INTERSECTION OF THE RIGHT AND LEFT TRANSVERSE PROCESS OF L3 AND L4 WITH ITS RESPECTIVE SUPERIOR ARTICULAR PROCESS. LIDOCAINE WAS USED TO NUMB THE SKIN AND THE SUBCUTANEOUS TISSUE BELOW IT. SPINAL NEEDLE, 22-GAUGE WAS ADVANCED UNDER FLUOROSCOPIC GUIDANCE AND FOLLOWING PATIENT FEEDBACK UNTIL THE TARGETS WERE REACHED. POSITION OF THE NEEDLES WAS VERIFIED WITH AP AND LATERAL VIEWS. AFTER PROPER POSITION OF THE NEEDLES WAS ACHIEVED, ISOVUE-M DYE 30% 0.1 ML WAS INJECTED AT EACH SITE SHOWING ADEQUATE SPREAD OF THE DYE. THEN A SOLUTION OF 0.4 ML OF BUPIVACAINE 0.25% WAS INJECTED AT EACH SITE. THERE WAS NO EVIDENCE OF BLOOD, PARESTHESIA OR CEREBROSPINAL FLUID DURING THE PROCEDURE. THE PATIENT WAS SENT TO THE RECOVERY ROOM. THE PATIENT WAS MOVING THE EXTREMITIES AND DOING WELL. THERE WAS NO COMPLICATION DURING THE PROCEDURE. FLUOROSCOPY TIME WAS 26 SECONDS POST PROCEDURE NOTE THE PATIENT WILL DOCUMENT HIS PAIN LEVEL AND RESPONSE TO THIS PROCEDURE EVERY 30 MINUTES. THE PATIENT WILL BE SEEN IN A FOLLOW UP IN THE NEXT FEW WEEKS. FURTHER DETERMINATION FOR HIS CASE WILL BE DONE AT THE NEXT VISIT. INSTRUCTIONS WERE GIVEN, QUESTIONS WERE ANSWERED, AND THE PATIENT EXPRESSED UNDERSTANDING AND AGREED WITH THE PLAN. I, ANGI JACSKON, DOCUMENTED THE ABOVE INFORMATION ACTING A SCRIBE FOR DR. GONSALVES. I HAVE REVIEWED THE ABOVE DOCUMENT, WRITTEN BY ANGI JACKSON SCRIBJanki AND I VERIFY THAT IT IS ACCURATE. DIAGNOSTIC IM[facility] FACET BLOCK (PAIN)[id number] PROCEDURE CODES 6045F RADXPS IN END [id number] PXD 22224 INJ PARAVERT F JNT L/S 1 LEV, MODIFIERS: 50 DISPOSITION & COMMUNICATION FOLLOW UP 3 WEEKS ELECTRONICALLY SIGNED BY SHE GONSALVES MD, MD ON 09/20/2018 AT 03:39 PM EDT DISCLAIMER : THIS IS A VISIT SUMMARY EXTRACTED FROM THE [employer] CHART. IT IS NOT A COPY OF THE [employer] PROGRESS NOTE. MTDD
== END ==
LOC: M PAIN 08:45
PROVIDERS: ATTEND Anesthesiology
DX: G89.29 Other chronic pain (principal); M47.816 Spondylosis without myelopathy or radiculopathy, lumbar region; G47.30 Sleep apnea, unspecified; F43.10 Post-traumatic stress disorder, unspecified; F17.220 Nicotine dependence, chewing tobacco, uncomplicated; Z79.891 Long term (current) use of opiate analgesic; Z79.899 Other long term (current) drug therapy; Z87.39 Personal history of other diseases of the musculoskeletal system and connective tissue
CPT/HCPCS: 64493; Q9967

== ENCOUNTER → 2018-10-03 | Outpatient (CLI) | payer OTHER ==
--- NOTE | 2018-10-22 01:55 | ECWPNPC ---
PATIENT NAME: ISADORA MOLINA : 1985 GENDER: MALE VISIT DATE: 10/03/2018 DISCHARGE DATE: 10/03/18 1127 VISIT LOCKED DATE TIME: PHYSICIAN: NICCI BALBUENA RESOURCE: NICCI BALBUENA DISCLAIMER : THIS IS A VISIT SUMMARY [facility] FROM [facility] CHART. IT IS NOT A COPY OF THE [facility] PROGRESS NOTE. MTDD
== END ==
LOC: M PAIN 10:00
PROVIDERS: ATTEND Nurse Practitioner Family
DX: M96.1 Postlaminectomy syndrome, not elsewhere classified (principal); M47.816 Spondylosis without myelopathy or radiculopathy, lumbar region; G47.30 Sleep apnea, unspecified; Z86.59 Personal history of other mental and behavioral disorders; Z88.8 Allergy status to other drugs, medicaments and biological substances; Z79.891 Long term (current) use of opiate analgesic; Z79.899 Other long term (current) drug therapy

== ENCOUNTER → 2018-10-22 | Outpatient (CLI) | payer MEDICARE, OTHER ==
--- NOTE | 2018-10-23 14:59 | REP ---
C-ARM VIEW LUMBAR SPINE: CLINICAL HISTORY: Pain. Single C-arm view of lumbar spine performed during injection by Dr. Epstein. Rods and screws are seen in the lower lumbar spine. A needle is seen along the right facet of L3. Tiny amount of contrast is injected by Dr. Epstein. 21 seconds fluoroscopy time utilized. Electronically Signed by Lc Early MD 10/25/2018 11:54 A
--- NOTE | 2018-11-04 00:20 | ECWPNPC ---
PATIENT NAME: ISADORA MOLINA : 1985 GENDER: MALE VISIT DATE: 10/22/2018 DISCHARGE DATE: 10/22/18 1652 VISIT LOCKED DATE TIME: PHYSICIAN: SHE GONSALVES MD RESOURCE: SHE GONSALVES MD REASON FOR APPOINTMENT 1. DIAGNOSTIC RIGHT L3/4 FACET BLOCK- HISTORY OF VASCULAR NECROSIS HISTORY OF PRESENT ILLNESS HISTORY OF PRESENT ILLNESS: PAIN THE PATIENT DESCRIBES THE PAIN... FALL RISK SCREENING: SCREENING :NO FALLS REPORTED IN THE LAST YEAR CURRENT MEDICATIONS TAKING ALLOPURINOL 300 MG TABLET 2 TABLET ORALLY ONCE A DAY, NOTES: 0500 TAKING COLCHICINE 0.6 MG TABLET ONE TAB ORALLY EVERY 12 HOURS PRN PAIN, NOTES: 10/13/18 TAKING TRAMADOL HCL 50 MG TABLET 1 -2 TABLETS ORALLY EVERY 6 HRS PRN PAIN MDD=3, NOTES: 10/21/18 1800 TAKING TIZANIDINE HCL 4 MG TABLET 1 TABLET NEEDED ORALLY TAKE 1 IN AM AND 2 AT BEDTIME, NOTES: FEW DAYS AGO TAKING PERCOCET 10-325 MG TABLET 1 TABLET NEEDED ORALLY BID, NOTES: 10/21/18 1200 NOT-TAKING AMITRIPTYLINE HCL 25 MG TABLET 1 TO 2 TAB ORALLY BEFORE BEDTIME NOT-TAKING TRAMADOL HCL 50 MG TABLET 1 -2 TABLET NEEDED ORALLY Q 8SRS PRN PAIN MDD=3, NOTES: DUPLICATE MEDICATION LIST REVIEWED AND RECONCILED WITH THE PATIENT PAST MEDICAL HISTORY CHRONIC LOW BACK PAIN GOUT SLEEP APNEA WITH CPAP REFLUX PTSD HIP PAIN AVASCULAR NECROSIS BILAT HIPS DX 03/2018 ALLERGIES AMITRIPTYLINE SURGICAL HISTORY SPINAL FUSION X 2 2017 TOTAL RIGHT HIP 05/2018 FAMILY HISTORY FATHER: ALIVE, DIAGNOSED WITH HYPERTENSION MOTHER: ALIVE, HYPERTENSION PATERNAL GRAND FATHER: CANCER MATERNAL GRAND FATHER: HEART DISEASE MATERNAL GRAND MOTHER: DIABETES 1 BROTHER(S) , 1 SISTER(S) - HEALTHY. 1 SON(S) - HEALTHY. GRANDFATHER - PROSTATE CANCER. SOCIAL HISTORY GENERAL: TOBACCO USE ARE YOU A:NONSMOKER ADDITIONAL FINDINGS: TOBACCO USER QUIT CHEWING 2-3 WEEKS AGO PAIN CLINIC PFS, CLERGY, PUBLIC HEALTH REFERRALS PFS REFERRAL NEEDED?NO CLERGY REFERRAL NEEDED?NO PUBLIC HEALTH REFERRAL NEEDED?NO WAS THE PROVIDER NOTIFIED OF ANY PERTINENT INFO?NO HAS THE PATIENT BEEN EDUCATED REGARDING HIS/HER PLAN OF CARE?YES HAS THE PATIENT BEEN EDUCATED REGARDING PAIN, THE RISK FOR PAIN, THE IMPORTANCE OF EFFECTIVE PAIN MANAGEMENT, AND THE PAIN ASSESSMENT PROCESS?YES LATEX QUESTIONNAIRE LATEX ALLERGY : HAVE YOU EVER DEVELOPED ANY TYPE OF REACTION AFTER HANDLING LATEX PRODUCTS SUCH RUBBER GLOVES, CONDOMS, DIAPHRAGMS, BALLOONS, SOCKS, OR UNDERWEAR?NO LATEX ALLERGY : HAVE YOU EVER DEVELOPED ANY TYPE OF REACTION DURING OR AFTER DENTAL APPOINTMENT, VAGINAL/RECTAL EXAMINATION, SURGICAL PROCEDURE, OR ANY OTHER EXPOSURE?NO LATEX RISK : HAVE YOU EVER HAD ANY DIFFICULTY BREATHING OR HIVES AFTER EATING OR HANDLING ANY FRUITS, OR VEGETABLES; SUCH KIWI, BANANAS, STONE FRUITS, OR CHESTNUTSNO LATEX RISK : DO YOU HAVE A PREVIOUS PERSONAL HISTORY OF MORE THAN NINE SURGERIES, SPINA BIFIDA, OR REPEATED CATHERTIZATIONS? NO LATEX RISK : ARE YOU FREQUENTLY EXPOSED TO LATEX PRODUCTS IN YOUR OCCUPATION?NO DATE ASKED : 09/16/2018 CAFFEINE CAFFEINE USE?YES HOW OFTEN AND HOW MUCH? SUZANNE ADVANCE DIRECTIVE ADVANCE DIRECTIVE DISCUSSED WITH PATIENT:YES PT HAS NO ADVANCED DIRECTIVES, DECLINES INFORMATION ON HCP AT THIS TIME. 10/22/18 ROMAN CATHOLIC [id number] NONE LANGUAGE LANGUAGES SPOKEN:FINNISH ALCOHOL SCREENING DID YOU HAVE A DRINK CONTAINING ALCOHOL IN THE PAST YEAR?YES HOW OFTEN DID YOU HAVE A DRINK CONTAINING ALCOHOL IN THE PAST YEAR?MONTHLY OR LESS (1 POINT) POINTS1 INTERPRETATIONNEGATIVE RECREATIONAL DRUG USE DRUG USE?NO LEARNING BARRIERS / SPECIAL NEEDS BARRIERS TO LEARNING?NO HEARING IMPAIRED?NO VISION IMPAIRED?NO COGNITIVELY IMPAIRED?NO READINESS TO LEARN?YES LEARNING PREFERENCES?NO LEARNING CAPABILITIES PRESENT?YES EMOTIONAL BARRIERS?NO SPECIAL DEVICES?YES :CANE REVIEWED WITH PT 02/18/18 2445 LASREVIEWED WITH PATIENT 04/18/18 1009 JSREVIEWED WITH PATIENT 05/31/18 1523 JSREVIEWED WITH PT 09/16/18 0947 BVREVIEWED WITH PATIENT 09/19/18 0906 JSREVIEWED WITH PATIENT 10/03/18 1046 JSREVIEWED WITH PATIENT 10/22/18 1522 JS. HOSPITALIZATION/MAJOR DIAGNOSTIC PROCEDURE SEE ABOVE REVIEW OF SYSTEMS REVIEWED BY: PROVIDER: . CONSTITUTIONAL: ANY CHANGE IN YOUR MEDICAL CONDITION? NO . CHILLS NO . FEVER NO . INFECTION: DO YOU HAVE NEW INFECTIONS? NO . DO YOU HAVE HISTORY OF MRSA? NO . MUSCULOSKELETAL: ANY NEW PATTERNS OF PAIN OR NUMBNESS? NO . GASTROENTEROLOGY: ANY NEW CHANGE IN BOWEL CONTROL? NO . GENITOURINARY: ANY NEW CHANGE IN BLADDER CONTROL? NO . IS THERE A CHANCE YOU COULD BE ? NO . HEMATOLOGY/LYMPH: DO YOU TAKE ANY BLOOD THINNERS? (FOR EXAMPLE- COUMADIN, PLAVIX, AGGRENOX, PLATEL, PRADAXA, OR XARELTO) NO . WHEN WAS YOUR LAST DOSE? DATE: TIME: . NEUROLOGY: HAVE YOU FALLEN IN THE PAST 12 MONTHS? NO . ANY NEW EXTREMITY NUMBNESS OR WEAKNESS? NO . CARDIOLOGY: DO YOU HAVE A PACEMAKER OR DEFIBRILLATOR? NO . RESPIRATORY: HAVE YOU BEEN SICK IN THE PAST WEEK? NO . FEVER NO . FLU LIKE SYMPTOMS? NO . COUGH NO . INTEGUMENTARY: DO YOU HAVE ANY RASHES OR OPEN SORES? NO . ALLERGIC/IMMUNO: ARE YOU ALLERGIC TO IV DYE? NO . ANY NEW ALLERGIES? NO . PSYCHIATRIC: DO YOU HAVE THOUGHTS OF HURTING YOURSELF OR SOMEONE ELSE? NO . ARE YOU ABUSED, NEGLECTED, OR IN AN UNSAFE ENVIRONMENT? NO . ENDOCRINOLOGY: ARE YOU DIABETIC? NO . OTHER: DO YOU NEED ANY PRESCRIPTIONS? NO . IF YES, PLEASE LIST: ____ . ANY NEW PROBLEMS WITH YOUR MEDICATIONS? NO . WHEN DID YOU LAST EAT? ____10/22/18 0400 . WHEN DID YOU LAST DRINK? ____10/22/18 1300 . WHAT DID YOU LAST DRINK? ____WATER . NAME OF PERSON DRIVING YOU HOME? ____DEVLIN . DO YOU HAVE ANY OTHER QUESTIONS OR CONCERNS NO . VITAL SIGNS WT 234.0 LBS, HT 67 IN, BMI 36.65 INDEX, BP 120/65 MM HG, HR 88 /MIN, RR 18 /MIN, TEMP 98.0 F, OXYGEN SAT % 96%, SAFE IN ENV? (Y/N) YES, NA INITIALS AW 1503, REVIEWED BY: JS. ASSESSMENTS SPONDYLOSIS OF LUMBAR REGION WITHOUT MYELOPATHY OR RADICULOPATHY - M47.816 (PRIMARY) PROCEDURES PN LUMBAR FACET BLOCK DIAGNOSTIC PRE PROCEDURE DIAGNOSIS LUMBAR SPONDYLOSIS POST PROCEDURE DIAGNOSIS LUMBAR SPONDYLOSIS PROCEDURE RIGHT L3-L4 FACET BLOCK DIAGNOSTIC NUMBER [address] SHE GONSALVES TELEPHONE TRIAGE NURSE NONE ANESTHESIA LOCAL PRE PROCEDURE NOTE THE PATIENT WITH HISTORY OF CHRONIC LOW BACK PAIN. I EVALUATED THE PATIENT AND REVIEWED THE CHART. I WENT OVER THE RISKS, ALTERNATIVES, AND BENEFITS ASSOCIATED WITH THIS PROCEDURE. THE PATIENT WOULD LIKE TO PROCEED AND GAVE CONSENT TO PERFORM THE PROCEDURE. AGREED WITH THE PATIENT WE ARE DOING THIS PROCEDURE TO DETERMINE IF THE PATIENT IS A CANDIDATE FOR A RADIOFREQUENCY ABLATION OF THE FACETS JOINTS. THE PATIENT DENIES UNEXPLAINABLE WEIGHT LOSS, FEVER, CHILLS, OR NEW CHANGES IN URINARY OR BOWEL CONTROL DESCRIPTION OF PROCEDURE THE PATIENT WAS BROUGHT TO THE PROCEDURE ROOM AND PLACED IN THE PRONE POSITION. THE LUMBOSACRAL AREA WAS CLEANED WITH CHLORAPREP SOLUTION AND DRAPED ASEPTICALLY. THE PROCEDURE WAS DONE UNDER STERILE CONDITIONS. I CHECKED LATERALITY AND THE LEVEL WHERE THE PROCEDURE WAS GOING TO BE PERFORMED WITH THE PATIENT AND THE SUPPORTING STAFF AT THE MOMENT OF THE TIME OUT IN THE PROCEDURE ROOM. UNDER FLUOROSCOPIC GUIDANCE, TARGETS WERE SELECTED AT THE INTERSECTION OF THE RIGHT TRANSVERSE PROCESS OF L3 AND L4 WITH ITS RESPECTIVE SUPERIOR ARTICULAR PROCESS. LIDOCAINE WAS USED TO NUMB THE SKIN AND THE SUBCUTANEOUS TISSUE BELOW IT. SPINAL NEEDLE, 22-GAUGE WAS ADVANCED UNDER FLUOROSCOPIC GUIDANCE AND FOLLOWING PATIENT FEEDBACK UNTIL THE TARGETS WERE REACHED. POSITION OF THE NEEDLES WAS VERIFIED WITH AP AND LATERAL VIEWS. AFTER PROPER POSITION OF THE NEEDLES WAS ACHIEVED, ISOVUE-M DYE 30% 0.1 ML WAS INJECTED AT EACH SITE SHOWING ADEQUATE SPREAD OF THE DYE. THEN A SOLUTION OF 0.4 ML OF BUPIVACAINE 0.25% WAS INJECTED AT EACH SITE. THERE WAS NO EVIDENCE OF BLOOD, PARESTHESIA OR CEREBROSPINAL FLUID DURING THE PROCEDURE. THE PATIENT WAS SENT TO THE RECOVERY ROOM. THE PATIENT WAS MOVING THE EXTREMITIES AND DOING WELL. THERE WAS NO COMPLICATION DURING THE PROCEDURE. FLUOROSCOPY TIME WAS 21 SECONDS POST PROCEDURE NOTE THE PATIENT WILL DOCUMENT HIS PAIN LEVEL AND RESPONSE TO THIS PROCEDURE EVERY 30 MINUTES. THE PATIENT WILL BE SEEN IN A FOLLOW UP IN THE NEXT FEW WEEKS. FURTHER DETERMINATION FOR HIS CASE WILL BE DONE AT THE NEXT VISIT. INSTRUCTIONS WERE GIVEN, QUESTIONS WERE ANSWERED, AND THE PATIENT EXPRESSED UNDERSTANDING AND AGREED WITH THE PLAN. I, JACOB CESPEDES, DOCUMENTED THE ABOVE INFORMATION ACTING A SCRIBE FOR DR. GONSALVES. I HAVE REVIEWED THE ABOVE DOCUMENT, WRITTEN BY JACOB HENNING AND I VERIFY THAT IT IS ACCURATE. DIAGNOSTIC IMAGING [facility] FACET BLOCK (PAIN)[id number] PROCEDURE CODES 27391 INJ PARAVERT F JNT L/S 1 LEV, MODIFIERS: RT [id number] RADXPS IN END [id number] PXD DISPOSITION & COMMUNICATION FOLLOW UP 3 WEEKS ELECTRONICALLY SIGNED BY SHE GONSALVES MD, MD ON 11/03/2018 AT 05:07 PM EDT DISCLAIMER : THIS IS A VISIT SUMMARY EXTRACTED FROM THE [email or web address] CHART. IT IS NOT A COPY OF THE [email or web address] PROGRESS NOTE. ESTHER
== END ==
LOC: M PAIN 15:00
PROVIDERS: ATTEND Anesthesiology
DX: G89.29 Other chronic pain (principal); M47.816 Spondylosis without myelopathy or radiculopathy, lumbar region; G47.30 Sleep apnea, unspecified; F43.10 Post-traumatic stress disorder, unspecified; Z79.891 Long term (current) use of opiate analgesic; Z79.899 Other long term (current) drug therapy; Z88.8 Allergy status to other drugs, medicaments and biological substances; Z87.39 Personal history of other diseases of the musculoskeletal system and connective tissue; Z96.641 Presence of right artificial hip joint
CPT/HCPCS: 64493; Q9967

== ENCOUNTER → 2018-11-05 | Outpatient (CLI) | payer OTHER, MEDICARE ==
--- NOTE | 2018-11-23 01:02 | ECWPNPC ---
PATIENT NAME: ISADORA MOLINA : 1985 GENDER: MALE VISIT DATE: 11/05/2018 DISCHARGE DATE: 11/05/18 1548 VISIT LOCKED DATE TIME: PHYSICIAN: NICCI BALBUENA RESOURCE: NICCI BALBUENA REASON FOR APPOINTMENT 1. POST PROC HISTORY OF PRESENT ILLNESS HISTORY OF PRESENT ILLNESS: HERE FOR POST PROCEDURE F/U.HAD RIGHT L3/4 DIAGNOSTIC BLOCK #2 ON 10/22/18.REPORTING >80% REDUCTION IN PAIN FOR 10 HOURS THEN PAIN GRADUALLY RETURNED TO BASELINE.HE HAS BEEN CONTEMPLATING RADIOFREQUENCY AND REALLY DOESNT WANT TO GO THROUGH WITH THIS.HE REALLY WANTS TO HAVE DCS TRIAL.RATING PAIN VAS 5-9/10. PAIN THE PATIENT DESCRIBES THE PAIN... THE PATIENT DESCRIBES THE PAIN... FALL RISK SCREENING: SCREENING :NO FALLS REPORTED IN THE LAST YEAR CURRENT MEDICATIONS TAKING ALLOPURINOL 300 MG TABLET 2 TABLET ORALLY ONCE A DAY TAKING COLCHICINE 0.6 MG TABLET ONE TAB ORALLY EVERY 12 HOURS PRN PAIN TAKING TRAMADOL HCL 50 MG TABLET 1 -2 TABLETS ORALLY EVERY 6 HRS PRN PAIN MDD=3 TAKING PERCOCET 10-325 MG TABLET 1 TABLET NEEDED ORALLY BID TAKING TIZANIDINE HCL 4 MG TABLET 1 TABLET NEEDED ORALLY TAKE 1 IN AM AND 2 AT BEDTIME NOT-TAKING AMITRIPTYLINE HCL 25 MG TABLET 1 TO 2 TAB ORALLY BEFORE BEDTIME NOT-TAKING TRAMADOL HCL 50 MG TABLET 1 -2 TABLET NEEDED ORALLY Q 8SRS PRN PAIN MDD=3, NOTES: DUPLICATE MEDICATION LIST REVIEWED AND RECONCILED WITH THE PATIENT PAST MEDICAL HISTORY CHRONIC LOW BACK PAIN GOUT SLEEP APNEA WITH CPAP REFLUX PTSD HIP PAIN AVASCULAR NECROSIS BILAT HIPS DX 03/2018 ALLERGIES AMITRIPTYLINE SURGICAL HISTORY SPINAL FUSION X 2 2017 TOTAL RIGHT HIP 05/2018 FAMILY HISTORY FATHER: ALIVE, DIAGNOSED WITH HYPERTENSION MOTHER: ALIVE, HYPERTENSION PATERNAL GRAND FATHER: CANCER MATERNAL GRAND FATHER: HEART DISEASE MATERNAL GRAND MOTHER: DIABETES 1 BROTHER(S) , 1 SISTER(S) - HEALTHY. 1 SON(S) - HEALTHY. GRANDFATHER - PROSTATE CANCER. SOCIAL HISTORY GENERAL: TOBACCO USE ARE YOU A:NONSMOKER ADDITIONAL FINDINGS: TOBACCO USER QUIT CHEWING 2-3 WEEKS AGO PAIN CLINIC PFS, CLERGY, PUBLIC HEALTH REFERRALS PFS REFERRAL NEEDED?NO CLERGY REFERRAL NEEDED?NO PUBLIC HEALTH REFERRAL NEEDED?NO WAS THE PROVIDER NOTIFIED OF ANY PERTINENT INFO?NO HAS THE PATIENT BEEN EDUCATED REGARDING HIS/HER PLAN OF CARE?YES HAS THE PATIENT BEEN EDUCATED REGARDING PAIN, THE RISK FOR PAIN, THE IMPORTANCE OF EFFECTIVE PAIN MANAGEMENT, AND THE PAIN ASSESSMENT PROCESS?YES LATEX QUESTIONNAIRE LATEX ALLERGY : HAVE YOU EVER DEVELOPED ANY TYPE OF REACTION AFTER HANDLING LATEX PRODUCTS SUCH RUBBER GLOVES, CONDOMS, DIAPHRAGMS, BALLOONS, SOCKS, OR UNDERWEAR?NO LATEX ALLERGY : HAVE YOU EVER DEVELOPED ANY TYPE OF REACTION DURING OR AFTER DENTAL APPOINTMENT, VAGINAL/RECTAL EXAMINATION, SURGICAL PROCEDURE, OR ANY OTHER EXPOSURE?NO LATEX RISK : HAVE YOU EVER HAD ANY DIFFICULTY BREATHING OR HIVES AFTER EATING OR HANDLING ANY FRUITS, OR VEGETABLES; SUCH KIWI, BANANAS, STONE FRUITS, OR CHESTNUTSNO LATEX RISK : DO YOU HAVE A PREVIOUS PERSONAL HISTORY OF MORE THAN NINE SURGERIES, SPINA BIFIDA, OR REPEATED CATHERTIZATIONS? NO LATEX RISK : ARE YOU FREQUENTLY EXPOSED TO LATEX PRODUCTS IN YOUR OCCUPATION?NO DATE ASKED : 09/16/2018 CAFFEINE CAFFEINE USE?YES HOW OFTEN AND HOW MUCH? SUZANNE ADVANCE DIRECTIVE ADVANCE DIRECTIVE DISCUSSED WITH PATIENT:YES PT HAS NO ADVANCED DIRECTIVES, DECLINES INFORMATION ON HCP AT THIS TIME. 11/05/18 1512 BV HINDU [id number] NONE LANGUAGE LANGUAGES SPOKEN:ROMANSH ALCOHOL SCREENING DID YOU HAVE A DRINK CONTAINING ALCOHOL IN THE PAST YEAR?YES HOW OFTEN DID YOU HAVE A DRINK CONTAINING ALCOHOL IN THE PAST YEAR?MONTHLY OR LESS (1 POINT) POINTS1 INTERPRETATIONNEGATIVE RECREATIONAL DRUG USE DRUG USE?NO LEARNING BARRIERS / SPECIAL NEEDS BARRIERS TO LEARNING?NO HEARING IMPAIRED?NO VISION IMPAIRED?NO COGNITIVELY IMPAIRED?NO READINESS TO LEARN?YES LEARNING PREFERENCES?NO LEARNING CAPABILITIES PRESENT?YES EMOTIONAL BARRIERS?NO SPECIAL DEVICES?YES :CANE REVIEWED WITH PT 02/18/18 2445 LASREVIEWED WITH PATIENT 04/18/18 1009 JSREVIEWED WITH PATIENT 05/31/18 1523 JSREVIEWED WITH PT 09/16/18 0947 BVREVIEWED WITH PATIENT 09/19/18 0906 JSREVIEWED WITH PATIENT 10/03/18 1046 JSREVIEWED WITH PT 11/05/18 1515 BVREVIEWED WITH PATIENT 10/22/18 1522 JS. HOSPITALIZATION/MAJOR DIAGNOSTIC PROCEDURE SEE ABOVE REVIEW OF SYSTEMS REVIEWED BY: PROVIDER: NICCI JOY . CONSTITUTIONAL: ANY CHANGE IN YOUR MEDICAL CONDITION? NO . CHILLS NO . FEVER NO . INFECTION: DO YOU HAVE NEW INFECTIONS? NO . DO YOU HAVE HISTORY OF MRSA? NO . MUSCULOSKELETAL: ANY NEW PATTERNS OF PAIN OR NUMBNESS? NO . GASTROENTEROLOGY: ANY NEW CHANGE IN BOWEL CONTROL? NO . GENITOURINARY: ANY NEW CHANGE IN BLADDER CONTROL? NO . IS THERE A CHANCE YOU COULD BE ? NO . HEMATOLOGY/LYMPH: DO YOU TAKE ANY BLOOD THINNERS? (FOR EXAMPLE- COUMADIN, PLAVIX, AGGRENOX, PLATEL, PRADAXA, OR XARELTO) NO . WHEN WAS YOUR LAST DOSE? DATE: TIME: . NEUROLOGY: HAVE YOU FALLEN IN THE PAST 12 MONTHS? NO . ANY NEW EXTREMITY NUMBNESS OR WEAKNESS? NO . CARDIOLOGY: DO YOU HAVE A PACEMAKER OR DEFIBRILLATOR? NO . RESPIRATORY: HAVE YOU BEEN SICK IN THE PAST WEEK? NO . FEVER NO . FLU LIKE SYMPTOMS? NO . COUGH NO . INTEGUMENTARY: DO YOU HAVE ANY RASHES OR OPEN SORES? NO . ALLERGIC/IMMUNO: ARE YOU ALLERGIC TO IV DYE? NO . ANY NEW ALLERGIES? NO . PSYCHIATRIC: DO YOU HAVE THOUGHTS OF HURTING YOURSELF OR SOMEONE ELSE? NO . ARE YOU ABUSED, NEGLECTED, OR IN AN UNSAFE ENVIRONMENT? NO . ENDOCRINOLOGY: ARE YOU DIABETIC? NO . OTHER: DO YOU NEED ANY PRESCRIPTIONS? YES, OXYCODONE 10-325 . IF YES, PLEASE LIST: ____ . ANY NEW PROBLEMS WITH YOUR MEDICATIONS? NO . WHEN DID YOU LAST EAT? ____ . WHEN DID YOU LAST DRINK? ____ . WHAT DID YOU LAST DRINK? ____ . NAME OF PERSON DRIVING YOU HOME? ____ . DO YOU HAVE ANY OTHER QUESTIONS OR CONCERNS NO . VITAL SIGNS WT 239.2 LBS, HT 67 IN, BMI 37.46 INDEX, BP 138/72 MM HG, HR 74 /MIN, RR 18 /MIN, TEMP 98.6 F, OXYGEN SAT % 96%, NA INITIALS SC 15:07, REVIEWED BY: BV. EXAMINATION GENERAL EXAMINATION: GENERAL APPEARANCE:AWAKE,ALERT ,PLEAASANT . PSYCHAFFECT NORMAL . LUNGS:LUNG ALEMAN ARE CLEAR TO AUSCULTATION BILATERALLY. GOOD MOVEMENT OF AIR . HEART:S1, S2 IN A REGULAR RATE AND RHYTHM. NO SIGNIFICANT MURMURS, RUBS OR GALLOPS NOTED . 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 PROCEDURE CODES FA211 ESTABILISHED PATIENT [facility] FACILITY CHARGE DISPOSITION & COMMUNICATION FOLLOW UP TALK W DR GONSALVES DCS TRIAL (REASON: WANTS DCS TRIAL) ELECTRONICALLY SIGNED BY BENITA HOOKER ON 11/21/2018 AT 12:47 PM EDT DISCLAIMER : THIS IS A VISIT SUMMARY EXTRACTED FROM THE [employer] CHART. IT IS NOT A COPY OF THE [facility] [employer] PROGRESS NOTE. MTDD
== END ==
LOC: M PAIN 14:15
PROVIDERS: ATTEND Nurse Practitioner Family
DX: M96.1 Postlaminectomy syndrome, not elsewhere classified (principal); M47.816 Spondylosis without myelopathy or radiculopathy, lumbar region; G47.30 Sleep apnea, unspecified; Z86.59 Personal history of other mental and behavioral disorders; Z96.641 Presence of right artificial hip joint; Z87.891 Personal history of nicotine dependence; Z88.8 Allergy status to other drugs, medicaments and biological substances; Z79.891 Long term (current) use of opiate analgesic; Z79.899 Other long term (current) drug therapy

== ENCOUNTER → 2018-11-29 | Outpatient (CLI) | payer OTHER, MEDICARE ==
--- NOTE | 2018-12-09 00:10 | ECWPNPC ---
PATIENT NAME: ISADORA MOLINA : 1985 GENDER: MALE VISIT DATE: 11/29/2018 DISCHARGE DATE: 11/29/18 1122 VISIT LOCKED DATE TIME: PHYSICIAN: SHE GONSALVES MD RESOURCE: SHE GONSALVES MD REASON FOR APPOINTMENT 1. WANTS DCS TRIAL HISTORY OF PRESENT ILLNESS HISTORY OF PRESENT ILLNESS: PAIN THE PATIENT DESCRIBES THE PAIN... 33 YEAR OLD MALE PATIENT WITH A HISTORY OF CHRONIC LOW BACK AND LEG PAIN. THE PATIENT DESCRIBES THE PAIN ACHING, BURNING, SORE, SHARP, STABBING, SHOOTING, AND CONTINUOUS WITH A PAIN SCORE OF 8-10/10 DEPENDING ON PHYSICAL ACTIVITY. THE PATIENT SAYS HIS PAIN STARTS IN HIS LOW BACK AND RADIATES DOWN INTO HIS RIGHT LEG. THE PATIENT HAS HAD 2 BACK SURGERIES AND TRIED SEVERAL INTERVENTIONS, BUT SAYS HIS PAIN HAS PERSISTED SO HE IS CURRENTLY INTERESTED IN A DCS TRIAL. PATIENT DENIES UNEXPLAINABLE WEIGHT LOSS, FEVER, CHILLS, NEW CHANGES ON HIS URINARY OR BOWEL CONTROL. FALL RISK SCREENING: SCREENING :NO FALLS REPORTED IN THE LAST YEAR CURRENT MEDICATIONS TAKING ALLOPURINOL 300 MG TABLET 2 TABLET ORALLY ONCE A DAY TAKING COLCHICINE 0.6 MG TABLET ONE TAB ORALLY EVERY 12 HOURS PRN PAIN TAKING TRAMADOL HCL 50 MG TABLET 1 -2 TABLETS ORALLY EVERY 6 HRS PRN PAIN MDD=3 TAKING TIZANIDINE HCL 4 MG TABLET 1 TABLET NEEDED ORALLY TAKE 1 IN AM AND 2 AT BEDTIME TAKING PERCOCET 10-325 MG TABLET 1 TABLET NEEDED ORALLY BID NOT-TAKING AMITRIPTYLINE HCL 25 MG TABLET 1 TO 2 TAB ORALLY BEFORE BEDTIME NOT-TAKING TRAMADOL HCL 50 MG TABLET 1 -2 TABLET NEEDED ORALLY Q 8SRS PRN PAIN MDD=3, NOTES: DUPLICATE MEDICATION LIST REVIEWED AND RECONCILED WITH THE PATIENT PAST MEDICAL HISTORY CHRONIC LOW BACK PAIN GOUT SLEEP APNEA WITH CPAP REFLUX PTSD HIP PAIN AVASCULAR NECROSIS BILAT HIPS DX 03/2018 ALLERGIES AMITRIPTYLINE SURGICAL HISTORY SPINAL FUSION X 2 2017 TOTAL RIGHT HIP 05/2018 FAMILY HISTORY FATHER: ALIVE, DIAGNOSED WITH HYPERTENSION MOTHER: ALIVE, HYPERTENSION PATERNAL GRAND FATHER: CANCER MATERNAL GRAND FATHER: HEART DISEASE MATERNAL GRAND MOTHER: DIABETES 1 BROTHER(S) , 1 SISTER(S) - HEALTHY. 1 SON(S) - HEALTHY. GRANDFATHER - PROSTATE CANCER. SOCIAL HISTORY GENERAL: TOBACCO USE ARE YOU A:NONSMOKER ADDITIONAL FINDINGS: TOBACCO USER QUIT CHEWING 2-3 WEEKS AGO PAIN CLINIC PFS, CLERGY, PUBLIC HEALTH REFERRALS PFS REFERRAL NEEDED?NO CLERGY REFERRAL NEEDED?NO PUBLIC HEALTH REFERRAL NEEDED?NO WAS THE PROVIDER NOTIFIED OF ANY PERTINENT INFO?NO HAS THE PATIENT BEEN EDUCATED REGARDING HIS/HER PLAN OF CARE?YES HAS THE PATIENT BEEN EDUCATED REGARDING PAIN, THE RISK FOR PAIN, THE IMPORTANCE OF EFFECTIVE PAIN MANAGEMENT, AND THE PAIN ASSESSMENT PROCESS?YES LATEX QUESTIONNAIRE LATEX ALLERGY : HAVE YOU EVER DEVELOPED ANY TYPE OF REACTION AFTER HANDLING LATEX PRODUCTS SUCH RUBBER GLOVES, CONDOMS, DIAPHRAGMS, BALLOONS, SOCKS, OR UNDERWEAR?NO LATEX ALLERGY : HAVE YOU EVER DEVELOPED ANY TYPE OF REACTION DURING OR AFTER DENTAL APPOINTMENT, VAGINAL/RECTAL EXAMINATION, SURGICAL PROCEDURE, OR ANY OTHER EXPOSURE?NO LATEX RISK : HAVE YOU EVER HAD ANY DIFFICULTY BREATHING OR HIVES AFTER EATING OR HANDLING ANY FRUITS, OR VEGETABLES; SUCH KIWI, BANANAS, STONE FRUITS, OR CHESTNUTSNO LATEX RISK : DO YOU HAVE A PREVIOUS PERSONAL HISTORY OF MORE THAN NINE SURGERIES, SPINA BIFIDA, OR REPEATED CATHERTIZATIONS? NO LATEX RISK : ARE YOU FREQUENTLY EXPOSED TO LATEX PRODUCTS IN YOUR OCCUPATION?NO DATE ASKED : 09/16/2018 CAFFEINE CAFFEINE USE?YES HOW OFTEN AND HOW MUCH? SUZANNE ADVANCE DIRECTIVE ADVANCE DIRECTIVE DISCUSSED WITH PATIENT:YES PT HAS NO ADVANCED DIRECTIVES, DECLINES INFORMATION ON HCP AT THIS TIME. AMISH [id number] NONE LANGUAGE LANGUAGES SPOKEN:COLOMBIAN ALCOHOL SCREENING DID YOU HAVE A DRINK CONTAINING ALCOHOL IN THE PAST YEAR?YES HOW OFTEN DID YOU HAVE A DRINK CONTAINING ALCOHOL IN THE PAST YEAR?MONTHLY OR LESS (1 POINT) POINTS1 INTERPRETATIONNEGATIVE RECREATIONAL DRUG USE DRUG USE?NO LEARNING BARRIERS / SPECIAL NEEDS BARRIERS TO LEARNING?NO HEARING IMPAIRED?NO VISION IMPAIRED?NO COGNITIVELY IMPAIRED?NO READINESS TO LEARN?YES LEARNING PREFERENCES?NO LEARNING CAPABILITIES PRESENT?YES EMOTIONAL BARRIERS?NO SPECIAL DEVICES?YES :CANE REVIEWED WITH PT 02/18/18 2445 LASREVIEWED WITH PATIENT 04/18/18 1009 JSREVIEWED WITH PATIENT 05/31/18 1523 JSREVIEWED WITH PT 09/16/18 0947 BVREVIEWED WITH PATIENT 09/19/18 0906 JSREVIEWED WITH PATIENT 10/03/18 1046 JSREVIEWED WITH PT 11/05/18 1515 BVREVIEWED WITH PATIENT 10/22/18 1522 JSREVIEWED WITH PATIENT 11/29/18 0310 PRITI. HOSPITALIZATION/MAJOR DIAGNOSTIC PROCEDURE SEE ABOVE REVIEW OF SYSTEMS REVIEWED BY: PROVIDER: SHE GONSALVES MD . CONSTITUTIONAL: ANY CHANGE IN YOUR MEDICAL CONDITION? NO . CHILLS NO . FEVER NO . INFECTION: DO YOU HAVE NEW INFECTIONS? NO . DO YOU HAVE HISTORY OF MRSA? NO . MUSCULOSKELETAL: ANY NEW PATTERNS OF PAIN OR NUMBNESS? NO . GASTROENTEROLOGY: ANY NEW CHANGE IN BOWEL CONTROL? NO . GENITOURINARY: ANY NEW CHANGE IN BLADDER CONTROL? NO . IS THERE A CHANCE YOU COULD BE ? NO . HEMATOLOGY/LYMPH: DO YOU TAKE ANY BLOOD THINNERS? (FOR EXAMPLE- COUMADIN, PLAVIX, AGGRENOX, PLATEL, PRADAXA, OR XARELTO) NO . WHEN WAS YOUR LAST DOSE? DATE: TIME: . NEUROLOGY: HAVE YOU FALLEN IN THE PAST 12 MONTHS? NO . ANY NEW EXTREMITY NUMBNESS OR WEAKNESS? NO . CARDIOLOGY: DO YOU HAVE A PACEMAKER OR DEFIBRILLATOR? NO . RESPIRATORY: HAVE YOU BEEN SICK IN THE PAST WEEK? NO . FEVER NO . FLU LIKE SYMPTOMS? NO . COUGH NO . INTEGUMENTARY: DO YOU HAVE ANY RASHES OR OPEN SORES? NO . ALLERGIC/IMMUNO: ARE YOU ALLERGIC TO IV DYE? NO . ANY NEW ALLERGIES? NO . PSYCHIATRIC: DO YOU HAVE THOUGHTS OF HURTING YOURSELF OR SOMEONE ELSE? NO . ARE YOU ABUSED, NEGLECTED, OR IN AN UNSAFE ENVIRONMENT? NO . ENDOCRINOLOGY: ARE YOU DIABETIC? NO . OTHER: DO YOU NEED ANY PRESCRIPTIONS? NO . IF YES, PLEASE LIST: ____ . ANY NEW PROBLEMS WITH YOUR MEDICATIONS? NO . WHEN DID YOU LAST EAT? ____ . WHEN DID YOU LAST DRINK? ____ . WHAT DID YOU LAST DRINK? ____ . NAME OF PERSON DRIVING YOU HOME? ____ . DO YOU HAVE ANY OTHER QUESTIONS OR CONCERNS NO . VITAL SIGNS WT 240 LBS, HT 67 IN, BMI 37.59 INDEX, BP 135/81 MM HG, HR 64 /MIN, RR 18 /MIN, TEMP 97.4 F, OXYGEN SAT % 95%, SAFE IN ENV? (Y/N) YES, NA INITIALS AW 0951, REVIEWED BY: PRITI. EXAMINATION GENERAL EXAMINATION: PATIENT IS ALERT O X 3 AND COOPERATIVE. ANTALGIC GAIT. PATIENT IS LIMPING FROM HIS RIGHT LEG. TENDERNESS IN THE LOW BACK AREA. RIGHT LEG IS WEAKER AT EXTENSION AND FLEXION. MRI OF THE LUMBAR SPINE DONE ON 11/05/2017 SHOWS A FUSION AND POST LAMINECTOMY CHANGES. ASSESSMENTS LUMBAR POST-LAMINECTOMY SYNDROME - M96.1 (PRIMARY) TREATMENT LUMBAR POST-LAMINECTOMY SYNDROME CLINICAL NOTES: WE DISCUSSED SEVERAL ISSUES WITH MR. MOLINA'S PAIN MANAGEMENT CASE. THE PATIENT IS INTERESTED IN A DCS TRIAL SO I WILL REFER HIM FOR A PSYCHOLOGICAL EVALUATION AND ORDER A THORACIC MRI TO BE SURE THERE IS ADEQUATE ROOM FOR THE CABLES TO PASS THROUGH. THE PATIENT IS ALSO INTERESTED IN TRYING COOL RADIOFREQUENCY WHEN WE HAVE THE NEW MACHINE AVAILABLE. THE PATIENT WILL FOLLOW UP IN 6 WEEKS. I WAS WITH THE PATIENT FOR OVER 25 MINUTES AND MORE THAN HALF OF THE TIME WAS SPENT DISCUSSING ALTERNATIVES AND THE DCS TRIAL. INSTRUCTIONS WERE GIVEN, QUESTIONS WERE ANSWERED, PATIENT REPORTS UNDERSTANDING AND AGREES WITH THE PLAN. I, ANGI JACKSON, DOCUMENTED THE ABOVE INFORMATION ACTING A SCRIBE FOR DR. GONSALVES. I HAVE REVIEWED THE ABOVE DOCUMENT, WRITTEN BY ANGI HENNING AND I VERIFY THAT IT IS ACCURATE. . PROCEDURE CODES FA211 ESTABILISHED PATIENT [facility] FACILITY CHARGE G8427 CURRENT MEDS W/DOSAGES DOCUMENTED G8730 PAIN ASSESS POS TOOL F/U PLAN DOC DISPOSITION & COMMUNICATION FOLLOW UP [address] Hay (REASON: LOW BACK/DCS) ELECTRONICALLY SIGNED BY SHE GONSALVES MD, ON 12/08/2018 AT 08:58 PM EDT DISCLAIMER : THIS IS A VISIT SUMMARY EXTRACTED FROM THE [employer] CHART. IT IS NOT A COPY OF THE [employer] PROGRESS NOTE. ETSHER
== END ==
LOC: M PAIN 09:45
PROVIDERS: ATTEND Anesthesiology
DX: G89.29 Other chronic pain (principal); M96.1 Postlaminectomy syndrome, not elsewhere classified; Z87.891 Personal history of nicotine dependence; Z79.891 Long term (current) use of opiate analgesic; Z79.899 Other long term (current) drug therapy; Z88.8 Allergy status to other drugs, medicaments and biological substances

== ENCOUNTER → 2019-01-10 | Outpatient (CLI) | payer OTHER, MEDICARE ==
--- NOTE | 2019-01-21 01:17 | ECWPNPC ---
PATIENT NAME: ISADORA MOLINA : 1985 GENDER: MALE VISIT DATE: 01/10/2019 DISCHARGE DATE: 01/10/19 1722 VISIT LOCKED DATE TIME: PHYSICIAN: SHE GONSALVES MD RESOURCE: SHE GONSALVES MD REASON FOR APPOINTMENT 1. DISCUSS DCS PER DR Hay HISTORY OF PRESENT ILLNESS HISTORY OF PRESENT ILLNESS: PAIN THE PATIENT DESCRIBES THE PAIN... 33 YEAR OLD MALE PATIENT WITH A HISTORY OF CHRONIC LOW BACK AND LEG PAIN. THE PATIENT DESCRIBES THE PAIN ACHING, BURNING, STABBING, SHOOTING, SHARP, DAILY, AND CONTINUOUS WITH A PAIN SCORE OF 9-10/10 DEPENDING ON PHYSICAL ACTIVITY. THE PATIENT SAYS THE PAIN BEGINS IN HIS LOW BACK AND RADIATES DOWN MAINLY HIS RIGHT LEG. THE PATIENT STATES HE HAS HAD BACK SURGERY IN THE PAST, YET THE PAIN PERSISTS. THE PATIENT SAYS HE IS TAKING ALLOPURINOL AND COLCHICINE FOR GOUT FLARE-UPS AND TRAMADOL AND PERCOCET FOR PAIN RELIEF. PATIENT DENIES UNEXPLAINABLE WEIGHT LOSS, FEVER, CHILLS, NEW CHANGES ON HIS URINARY OR BOWEL CONTROL. FALL RISK SCREENING: SCREENING :NO FALLS REPORTED IN THE LAST YEAR CURRENT MEDICATIONS TAKING ALLOPURINOL 300 MG TABLET 2 TABLET ORALLY ONCE A DAY TAKING COLCHICINE 0.6 MG TABLET ONE TAB ORALLY EVERY 12 HOURS PRN PAIN TAKING TRAMADOL HCL 50 MG TABLET 1 -2 TABLETS ORALLY EVERY 6 HRS PRN PAIN MDD=3 TAKING TIZANIDINE HCL 4 MG TABLET 1 TABLET NEEDED ORALLY TAKE 1 IN AM AND 2 AT BEDTIME TAKING PERCOCET 10-325 MG TABLET 1 TABLET NEEDED ORALLY BID NOT-TAKING AMITRIPTYLINE HCL 25 MG TABLET 1 TO 2 TAB ORALLY BEFORE BEDTIME NOT-TAKING TRAMADOL HCL 50 MG TABLET 1 -2 TABLET NEEDED ORALLY Q 8SRS PRN PAIN MDD=3, NOTES: DUPLICATE MEDICATION LIST REVIEWED AND RECONCILED WITH THE PATIENT PAST MEDICAL HISTORY CHRONIC LOW BACK PAIN GOUT SLEEP APNEA WITH CPAP REFLUX PTSD HIP PAIN AVASCULAR NECROSIS BILAT HIPS DX 03/2018 KIDNEY STONE ALLERGIES AMITRIPTYLINE SURGICAL HISTORY SPINAL FUSION X 2 2017 TOTAL RIGHT HIP 05/2018 FAMILY HISTORY FATHER: ALIVE, DIAGNOSED WITH HYPERTENSION MOTHER: ALIVE, HYPERTENSION PATERNAL GRAND FATHER: CANCER MATERNAL GRAND FATHER: HEART DISEASE MATERNAL GRAND MOTHER: DIABETES 1 BROTHER(S) , 1 SISTER(S) - HEALTHY. 1 SON(S) - HEALTHY. GRANDFATHER - PROSTATE CANCER. SOCIAL HISTORY GENERAL: TOBACCO USE ARE YOU A:NONSMOKER ADDITIONAL FINDINGS: TOBACCO USER QUIT CHEWING 2-3 WEEKS AGO OTHERS AT HOME: SPOUSE, CHILD. DIET: REGULAR. LANGUAGE LANGUAGES SPOKEN:LUXEMBOURGER RECREATIONAL DRUG USE DRUG USE?NO EXERCISE: NO REGULAR EXERCISE. LEARNING BARRIERS / SPECIAL NEEDS BARRIERS TO LEARNING?NO HEARING IMPAIRED?NO VISION IMPAIRED?NO COGNITIVELY IMPAIRED?NO READINESS TO LEARN?YES LEARNING PREFERENCES?NO LEARNING CAPABILITIES PRESENT?YES EMOTIONAL BARRIERS?NO SPECIAL DEVICES?YES :[facility] PAIN CLINIC PFS, CLERGY, PUBLIC HEALTH REFERRALS PFS REFERRAL NEEDED?NO CLERGY REFERRAL NEEDED?NO PUBLIC HEALTH REFERRAL NEEDED?NO WAS THE PROVIDER NOTIFIED OF ANY PERTINENT INFO?NO HAS THE PATIENT BEEN EDUCATED REGARDING HIS/HER PLAN OF CARE?YES HAS THE PATIENT BEEN EDUCATED REGARDING PAIN, THE RISK FOR PAIN, THE IMPORTANCE OF EFFECTIVE PAIN MANAGEMENT, AND THE PAIN ASSESSMENT PROCESS?YES LATEX QUESTIONNAIRE LATEX ALLERGY : HAVE YOU EVER DEVELOPED ANY TYPE OF REACTION AFTER HANDLING LATEX PRODUCTS SUCH RUBBER GLOVES, CONDOMS, DIAPHRAGMS, BALLOONS, SOCKS, OR UNDERWEAR?NO LATEX ALLERGY : HAVE YOU EVER DEVELOPED ANY TYPE OF REACTION DURING OR AFTER DENTAL APPOINTMENT, VAGINAL/RECTAL EXAMINATION, SURGICAL PROCEDURE, OR ANY OTHER EXPOSURE?NO LATEX RISK : HAVE YOU EVER HAD ANY DIFFICULTY BREATHING OR HIVES AFTER EATING OR HANDLING ANY FRUITS, OR VEGETABLES; SUCH KIWI, BANANAS, STONE FRUITS, OR CHESTNUTSNO LATEX RISK : DO YOU HAVE A PREVIOUS PERSONAL HISTORY OF MORE THAN NINE SURGERIES, SPINA BIFIDA, OR REPEATED CATHERIZATIONS? NO LATEX RISK : ARE YOU FREQUENTLY EXPOSED TO LATEX PRODUCTS IN YOUR OCCUPATION?NO DATE ASKED : 09/16/2018 CAFFEINE CAFFEINE USE?YES HOW OFTEN AND HOW MUCH? SUZANNE ADVANCE DIRECTIVE ADVANCE DIRECTIVE DISCUSSED WITH PATIENT:YES PT HAS NO ADVANCED DIRECTIVES, DECLINES INFORMATION ON HCP AT THIS TIME. [facility] [id number] NONE MARITAL STATUS: . ALCOHOL SCREENING DID YOU HAVE A DRINK CONTAINING ALCOHOL IN THE PAST YEAR?YES HOW OFTEN DID YOU HAVE A DRINK CONTAINING ALCOHOL IN THE PAST YEAR?MONTHLY OR LESS (1 POINT) POINTS1 INTERPRETATIONNEGATIVE OCCUPATION: DISABLED. REVIEWED WITH PT 02/18/18 7522 LASREVIEWED WITH PATIENT 04/18/18 1009 JSREVIEWED WITH PATIENT 05/31/18 1523 JSREVIEWED WITH PT 09/16/18 0947 BVREVIEWED WITH PATIENT 09/19/18 0906 JSREVIEWED WITH PATIENT 10/03/18 1046 JSREVIEWED WITH PT 11/05/18 1515 BVREVIEWED WITH PATIENT 10/22/18 1522 JSREVIEWED WITH PATIENT 11/29/18 0956 JSREVIEWED WITH PATIENT 01/10/19 1527 JS. HOSPITALIZATION/MAJOR DIAGNOSTIC PROCEDURE SEE ABOVE REVIEW OF SYSTEMS REVIEWED BY: PROVIDER: SHE GONSALVES MD . CONSTITUTIONAL: ANY CHANGE IN YOUR MEDICAL CONDITION? YES, KIDNEY STONE LAST WEEK - HAS PASSED SINCE . CHILLS NO . FEVER NO . INFECTION: DO YOU HAVE NEW INFECTIONS? NO . DO YOU HAVE HISTORY OF MRSA? NO . MUSCULOSKELETAL: ANY NEW PATTERNS OF PAIN OR NUMBNESS? YES, STATES NEW SHOOTING PAIN TO RIGHT GROIN AND DOWN LEG . GASTROENTEROLOGY: ANY NEW CHANGE IN BOWEL CONTROL? NO . GENITOURINARY: ANY NEW CHANGE IN BLADDER CONTROL? NO . IS THERE A CHANCE YOU COULD BE ? NO . HEMATOLOGY/LYMPH: DO YOU TAKE ANY BLOOD THINNERS? (FOR EXAMPLE- COUMADIN, PLAVIX, AGGRENOX, PLATEL, PRADAXA, OR XARELTO) NO . WHEN WAS YOUR LAST DOSE? DATE: TIME: . NEUROLOGY: HAVE YOU FALLEN IN THE PAST 12 MONTHS? NO . ANY NEW EXTREMITY NUMBNESS OR WEAKNESS? NO . CARDIOLOGY: DO YOU HAVE A PACEMAKER OR DEFIBRILLATOR? NO . RESPIRATORY: HAVE YOU BEEN SICK IN THE PAST WEEK? NO . FEVER NO . FLU LIKE SYMPTOMS? NO . COUGH NO . INTEGUMENTARY: DO YOU HAVE ANY RASHES OR OPEN SORES? NO . ALLERGIC/IMMUNO: ARE YOU ALLERGIC TO IV DYE? NO . ANY NEW ALLERGIES? NO . PSYCHIATRIC: DO YOU HAVE THOUGHTS OF HURTING YOURSELF OR SOMEONE ELSE? NO . ARE YOU ABUSED, NEGLECTED, OR IN AN UNSAFE ENVIRONMENT? NO . ENDOCRINOLOGY: ARE YOU DIABETIC? NO . OTHER: DO YOU NEED ANY PRESCRIPTIONS? NO . IF YES, PLEASE LIST: ____ . ANY NEW PROBLEMS WITH YOUR MEDICATIONS? NO . WHEN DID YOU LAST EAT? ____ . WHEN DID YOU LAST DRINK? ____ . WHAT DID YOU LAST DRINK? ____ . NAME OF PERSON DRIVING YOU HOME? ____ . DO YOU HAVE ANY OTHER QUESTIONS OR CONCERNS NO . VITAL SIGNS WT 235.4 LBS, HT 67 IN, BMI 36.86 INDEX, BP 143/82 MM HG, HR 85 /MIN, RR 18 /MIN, TEMP 97.3 F, OXYGEN SAT % 95%, SAFE IN ENV? (Y/N) YES, NA INITIALS SC 15:18, REVIEWED BY: JS. EXAMINATION GENERAL EXAMINATION: PATIENT IS ALERT O X 3 AND COOPERATIVE. TENDERNESS IN THE LOW BACK. ANTALGIC WALK. PATIENT IS LIMPING MAINLY FROM THE RIGHT LEG. MRI OF THE THORACIC SPINE DONE ON 12/05/2018 SHOWS A PROTRUSION. MRI OF THE LUMBAR SPINE DONE ON 11/05/2017 SHOWS POSTSURGICAL CHANGES AT L4-L5 AND L5-S1 LEVELS. PRE-SURGERY PSYCHOLOGICAL EVALUATION DONE ON 12/19/2018 CONCLUDES HE IS QUALIFIED FOR THE DCS SURGERY. ASSESSMENTS LUMBAR POST-LAMINECTOMY SYNDROME - M96.1 (PRIMARY) TREATMENT LUMBAR POST-LAMINECTOMY SYNDROME CLINICAL NOTES: WE DISCUSSED SEVERAL ISSUES WITH MR. MOLINA'S PAIN MANAGEMENT CASE. I WILL BE REQUESTING CLEARANCE FROM THE PATIENT'S PRIMARY CARE PROVIDER FOR 3 WEEKS BEFORE THE TRIAL, WHICH WILL BE ON 2018. I WOULD LIKE TO REVIEW THE PATIENT'S MRI WITH THE RADIOLOGIST TO DISCUSS THE REPORT'S FINDINGS. I ADVISED THE PATIENT I WILL BE REDUCING THE TRAMADOL AND PERCOCET MEDICATIONS BEFORE THE TRIAL. THE PATIENT UNDERSTANDS AND AGREES WITH THE PLAN. THE PATIENT WILL FOLLOW UP IN 3 WEEKS BEFORE THE TRIAL ON 02/12/2019. INSTRUCTIONS WERE GIVEN, QUESTIONS WERE ANSWERED, PATIENT REPORTS UNDERSTANDING AND AGREES WITH THE PLAN. I, JACOB CESPEDES, DOCUMENTED THE ABOVE INFORMATION ACTING A SCRIBE FOR DR. GONSALVES. I HAVE REVIEWED THE ABOVE DOCUMENT, WRITTEN BY JACOB HENNING AND I VERIFY THAT IT IS ACCURATE. . PROCEDURE CODES FA211 ESTABILISHED PATIENT [facility] FACILITY CHARGE [id number] CURRENT MEDS W/DOSAGES DOCUMENTED G8730 PAIN ASSESS POS TOOL F/U PLAN DOC DISPOSITION & COMMUNICATION FOLLOW UP 3 WEEKS BEFORE TRIAL, MAR 03 IS TRIAL DAY (REASON: F/U FOR [facility] TRIAL CLEARANCE PAPERWORK) ELECTRONICALLY SIGNED BY SHE GONSALVES MD, MD ON 01/20/2019 AT 04:25 PM EDT DISCLAIMER : THIS IS A VISIT SUMMARY EXTRACTED FROM THE [employer] CHART. IT IS NOT A COPY OF THE [employer] PROGRESS NOTE. MTDD
== END ==
LOC: M PAIN 15:30
PROVIDERS: ATTEND Anesthesiology
DX: M96.1 Postlaminectomy syndrome, not elsewhere classified (principal); M54.5 Low back pain; M10.9 Gout, unspecified; G47.30 Sleep apnea, unspecified; K21.9 Gastro-esophageal reflux disease without esophagitis; F43.10 Post-traumatic stress disorder, unspecified; Z87.442 Personal history of urinary calculi; Z96.641 Presence of right artificial hip joint; Z79.891 Long term (current) use of opiate analgesic; Z79.899 Other long term (current) drug therapy; Z88.8 Allergy status to other drugs, medicaments and biological substances

== ENCOUNTER → 2019-02-12 | Outpatient (CLI) | payer OTHER, MEDICARE ==
--- NOTE | 2019-02-18 00:51 | ECWPNPC ---
PATIENT NAME: ISADORA MOLINA : 1985 GENDER: MALE VISIT DATE: 02/12/2019 DISCHARGE DATE: 02/12/19 1627 VISIT LOCKED DATE TIME: PHYSICIAN: SHE GONSALVES MD RESOURCE: SHE GONSALVES MD REASON FOR APPOINTMENT 1. DCS PRE OP HISTORY OF PRESENT ILLNESS HISTORY OF PRESENT ILLNESS: PAIN THE PATIENT DESCRIBES THE PAIN... 33 YEAR OLD MALE PATIENT WITH A HISTORY OF CHRONIC LOW BACK AND LEG PAIN. THE PATIENT DESCRIBES THE PAIN ACHING, BURNING, STABBING, SORE, TENDER, SHARP, SHOOTING, DAILY, AND CONTINUOUS WITH A PAIN SCORE OF 7-10/10 DEPENDING ON PHYSICAL ACTIVITY. THE PATIENT STATES HIS PAIN BEGINS IN HIS LOW BACK AND RADIATES DOWN MAINLY HIS RIGHT LEG. THE PATIENT SAYS HE HAS BEEN SUFFERING FROM THIS PAIN FOR MANY YEARS. THE PATIENT STATES HE HAS TRIED SEVERAL MEDICATIONS AND INJECTION THERAPIES, HOWEVER THE PAIN STILL PERSISTS. THE PATIENT SAYS HE WANTS TO MOVE FORWARD WITH THE DCS TRIAL TO SEE IF IT WILL HELP WITH HIS PAIN. PATIENT DENIES UNEXPLAINABLE WEIGHT LOSS, FEVER, CHILLS, NEW CHANGES ON HIS URINARY OR BOWEL CONTROL. FALL RISK SCREENING: SCREENING :NO FALLS REPORTED IN THE LAST YEAR CURRENT MEDICATIONS TAKING ALLOPURINOL 300 MG TABLET 2 TABLET ORALLY ONCE A DAY TAKING COLCHICINE 0.6 MG TABLET ONE TAB ORALLY EVERY 12 HOURS PRN PAIN TAKING TIZANIDINE HCL 4 MG TABLET 1 TABLET NEEDED ORALLY TAKE 1 IN AM AND 2 AT BEDTIME TAKING TRAMADOL HCL 50 MG TABLET 1 -2 TABLETS ORALLY EVERY 6 HRS PRN PAIN MDD=3 TAKING PERCOCET 10-325 MG TABLET 1 TABLET NEEDED ORALLY BID NOT-TAKING AMITRIPTYLINE HCL 25 MG TABLET 1 TO 2 TAB ORALLY BEFORE BEDTIME NOT-TAKING TRAMADOL HCL 50 MG TABLET 1 -2 TABLET NEEDED ORALLY Q 8SRS PRN PAIN MDD=3, NOTES: DUPLICATE MEDICATION LIST REVIEWED AND RECONCILED WITH THE PATIENT PAST MEDICAL HISTORY CHRONIC LOW BACK PAIN GOUT SLEEP APNEA WITH CPAP REFLUX PTSD HIP PAIN AVASCULAR NECROSIS BILAT HIPS DX 03/2018 KIDNEY STONE ALLERGIES AMITRIPTYLINE: DYSPNEA SURGICAL HISTORY SPINAL FUSION X 2 2017 TOTAL RIGHT HIP 05/2018 FAMILY HISTORY FATHER: ALIVE, DIAGNOSED WITH HYPERTENSION MOTHER: ALIVE, HYPERTENSION PATERNAL GRAND FATHER: CANCER MATERNAL GRAND FATHER: HEART DISEASE MATERNAL GRAND MOTHER: DIABETES 1 BROTHER(S) , 1 SISTER(S) - HEALTHY. 1 SON(S) - HEALTHY. GRANDFATHER - PROSTATE CANCER. SOCIAL HISTORY GENERAL: TOBACCO USE ARE YOU A:NONSMOKER ADDITIONAL FINDINGS: TOBACCO USER QUIT CHEWING 6 WEEKS AGO OTHERS AT HOME: SPOUSE, CHILD. DIET: REGULAR. LANGUAGE LANGUAGES SPOKEN:MALAYSIAN RECREATIONAL DRUG USE DRUG USE?NO EXERCISE: NO REGULAR EXERCISE. LEARNING BARRIERS / SPECIAL NEEDS BARRIERS TO LEARNING?NO HEARING IMPAIRED?NO VISION IMPAIRED?NO COGNITIVELY IMPAIRED?NO READINESS TO LEARN?YES LEARNING PREFERENCES?NO LEARNING CAPABILITIES PRESENT?YES EMOTIONAL BARRIERS?NO SPECIAL DEVICES?YES :[facility] PFS, CLERGY, PUBLIC HEALTH REFERRALS PFS REFERRAL NEEDED?NO CLERGY REFERRAL NEEDED?NO PUBLIC HEALTH REFERRAL NEEDED?NO WAS THE PROVIDER NOTIFIED OF ANY PERTINENT INFO?NO HAS THE PATIENT BEEN EDUCATED REGARDING HIS/HER PLAN OF CARE?YES HAS THE PATIENT BEEN EDUCATED REGARDING PAIN, THE RISK FOR PAIN, THE IMPORTANCE OF EFFECTIVE PAIN MANAGEMENT, AND THE PAIN ASSESSMENT PROCESS?YES LATEX QUESTIONNAIRE LATEX ALLERGY : HAVE YOU EVER DEVELOPED ANY TYPE OF REACTION AFTER HANDLING LATEX PRODUCTS SUCH RUBBER GLOVES, CONDOMS, DIAPHRAGMS, BALLOONS, SOCKS, OR UNDERWEAR?NO LATEX ALLERGY : HAVE YOU EVER DEVELOPED ANY TYPE OF REACTION DURING OR AFTER DENTAL APPOINTMENT, VAGINAL/RECTAL EXAMINATION, SURGICAL PROCEDURE, OR ANY OTHER EXPOSURE?NO LATEX RISK : HAVE YOU EVER HAD ANY DIFFICULTY BREATHING OR HIVES AFTER EATING OR HANDLING ANY FRUITS, OR VEGETABLES; SUCH KIWI, BANANAS, STONE FRUITS, OR CHESTNUTSNO LATEX RISK : DO YOU HAVE A PREVIOUS PERSONAL HISTORY OF MORE THAN NINE SURGERIES, SPINA BIFIDA, OR REPEATED CATHERIZATIONS? NO LATEX RISK : ARE YOU FREQUENTLY EXPOSED TO LATEX PRODUCTS IN YOUR OCCUPATION?NO DATE ASKED : 09/16/2018 CAFFEINE CAFFEINE USE?YES HOW OFTEN AND HOW MUCH? SUZANNE ADVANCE DIRECTIVE ADVANCE DIRECTIVE DISCUSSED WITH PATIENT:YES PT HAS NO ADVANCED DIRECTIVES, DECLINES INFORMATION ON HCP AT THIS TIME. HINDUISM [id number] NONE MARITAL STATUS: . ALCOHOL SCREENING DID YOU HAVE A DRINK CONTAINING ALCOHOL IN THE PAST YEAR?YES HOW OFTEN DID YOU HAVE A DRINK CONTAINING ALCOHOL IN THE PAST YEAR?MONTHLY OR LESS (1 POINT) POINTS1 INTERPRETATIONNEGATIVE OCCUPATION: DISABLED. REVIEWED WITH PT 02/18/18 1805 LASREVIEWED WITH PATIENT 04/18/18 1009 JSREVIEWED WITH PATIENT 05/31/18 1523 JSREVIEWED WITH PT 09/16/18 0947 BVREVIEWED WITH PATIENT 09/19/18 0906 JSREVIEWED WITH PATIENT 10/03/18 1046 JSREVIEWED WITH PT 11/05/18 1515 BVREVIEWED WITH PATIENT 10/22/18 1522 JSREVIEWED WITH PATIENT 11/29/18 0956 JSREVIEWED WITH PATIENT 01/10/19 1527 JS. HOSPITALIZATION/MAJOR DIAGNOSTIC PROCEDURE SEE ABOVE REVIEW OF SYSTEMS REVIEWED BY: PROVIDER: SHE GONSALVES MD . CONSTITUTIONAL: ANY CHANGE IN YOUR MEDICAL CONDITION? NO . CHILLS NO . FEVER NO . INFECTION: DO YOU HAVE NEW INFECTIONS? NO . DO YOU HAVE HISTORY OF MRSA? NO . MUSCULOSKELETAL: ANY NEW PATTERNS OF PAIN OR NUMBNESS? NO . GASTROENTEROLOGY: ANY NEW CHANGE IN BOWEL CONTROL? NO . GENITOURINARY: ANY NEW CHANGE IN BLADDER CONTROL? NO . IS THERE A CHANCE YOU COULD BE ? NO . HEMATOLOGY/LYMPH: DO YOU TAKE ANY BLOOD THINNERS? (FOR EXAMPLE- COUMADIN, PLAVIX, AGGRENOX, PLATEL, PRADAXA, OR XARELTO) NO . WHEN WAS YOUR LAST DOSE? DATE: TIME: . NEUROLOGY: HAVE YOU FALLEN IN THE PAST 12 MONTHS? NO . ANY NEW EXTREMITY NUMBNESS OR WEAKNESS? NO . CARDIOLOGY: DO YOU HAVE A PACEMAKER OR DEFIBRILLATOR? NO . RESPIRATORY: HAVE YOU BEEN SICK IN THE PAST WEEK? NO . FEVER NO . FLU LIKE SYMPTOMS? NO . COUGH NO . INTEGUMENTARY: DO YOU HAVE ANY RASHES OR OPEN SORES? NO . ALLERGIC/IMMUNO: ARE YOU ALLERGIC TO IV DYE? NO . ANY NEW ALLERGIES? NO . PSYCHIATRIC: DO YOU HAVE THOUGHTS OF HURTING YOURSELF OR SOMEONE ELSE? NO . ARE YOU ABUSED, NEGLECTED, OR IN AN UNSAFE ENVIRONMENT? NO . ENDOCRINOLOGY: ARE YOU DIABETIC? NO . OTHER: DO YOU NEED ANY PRESCRIPTIONS? NO . IF YES, PLEASE LIST: ____ . ANY NEW PROBLEMS WITH YOUR MEDICATIONS? NO . WHEN DID YOU LAST EAT? ____ . WHEN DID YOU LAST DRINK? ____ . WHAT DID YOU LAST DRINK? ____ . NAME OF PERSON DRIVING YOU HOME? ____ . DO YOU HAVE ANY OTHER QUESTIONS OR CONCERNS NO . VITAL SIGNS WT 230.2 LBS, HT 67 IN, BMI 36.05 INDEX, BP 126/82 MM HG, HR 83 /MIN, RR 18 /MIN, TEMP 96.9 F, OXYGEN SAT % 97%, NA INITIALS AW 1426, REVIEWED BY: LS. EXAMINATION GENERAL EXAMINATION: PATIENT IS ALERT O X 3 AND COOPERATIVE. ANTALGIC WALK. TENDERNESS IN THE LOW BACK AREA. RIGHT LEG IS WEAKER AT EXTENSION AND FLEXION. STRAIGHT LEG RAISE OF THE RIGHT LEG IS POSITIVE AT 10 DEGREES FOR RADICULOPATHY. MRI OF THE LUMBAR SPINE DONE ON 11/05/2017 SHOWS DISC EXTRUSION AT MULTIPLE LEVELS, FUSION AT L4-L5, AND INTERVERTEBRAL DEVICES AT L4-L5 AND L5-S1 LEVELS. ASSESSMENTS LUMBAR POST-LAMINECTOMY SYNDROME - M96.1 (PRIMARY) TREATMENT LUMBAR POST-LAMINECTOMY SYNDROME CLINICAL NOTES: WE DISCUSSED SEVERAL ISSUES WITH MR. MOLINA'S PAIN MANAGEMENT CASE. THE PATIENT WOULD LIKE TO PROCEED WITH THE DCS TRIAL THAT IS SCHEDULE FOR Sunday03/03/2019. THE LEADS WILL BE PULLED ON THE FOLLOWING Sunday03/07/2019. I WILL REQUEST CLEARANCE FROM THE PATIENT'S PRIMARY CARE BEFORE THE TRIAL. I WOULD ALSO LIKE TO DISCUSS ABOUT THE THORACIC AND LUMBAR MRI'S WITH THE RADIOLOGISTS. I ADVISED THE PATIENT TO STOP ALLOPURINOL 300 MG 3 DAYS BEFORE THE TRAIL. THE PATIENT WILL START KEFLEX 500 MG 3 TIMES DAILY, 30 TABLETS FOR THE MONTH, AFTER THE PROCEDURE DAY. INSTRUCTIONS WERE GIVEN, QUESTIONS WERE ANSWERED, PATIENT REPORTS UNDERSTANDING AND AGREES WITH THE PLAN. I, JACOB CESPEDES, DOCUMENTED THE ABOVE INFORMATION ACTING A SCRIBE FOR DR. GONSALVES. I HAVE REVIEWED THE ABOVE DOCUMENT, WRITTEN BY JACOB CESPEDES SCRIBJanki AND I VERIFY THAT IT IS ACCURATE. . OTHERS START KEFLEX CAPSULE, 500 MG, 1 CAPSULE, ORALLY, THREE TIMES DAILY MDD3, 10 DAY(S), 30, REFILLS 0 PROCEDURE CODES FA211 ESTABILISHED PATIENT [facility] FACILITY CHARGE G8427 CURRENT MEDS W/DOSAGES DOCUMENTED G8730 PAIN ASSESS POS TOOL F/U PLAN DOC DISPOSITION & COMMUNICATION FOLLOW UP REASON: DCS TRIAL ELECTRONICALLY SIGNED BY SHE GONSALVES MD, MD ON 02/17/2019 AT 12:57 PM EDT DISCLAIMER : THIS IS A VISIT SUMMARY EXTRACTED FROM THE [employer] CHART. IT IS NOT A COPY OF THE [employer] PROGRESS NOTE. MTDD
== END ==
LOC: M PAIN 14:15
PROVIDERS: ATTEND Anesthesiology
DX: M96.1 Postlaminectomy syndrome, not elsewhere classified (principal); G47.30 Sleep apnea, unspecified; Z86.59 Personal history of other mental and behavioral disorders; Z96.641 Presence of right artificial hip joint; F17.220 Nicotine dependence, chewing tobacco, uncomplicated; Z88.8 Allergy status to other drugs, medicaments and biological substances; Z79.891 Long term (current) use of opiate analgesic; Z79.899 Other long term (current) drug therapy

== ENCOUNTER 2019-03-03 08:03 | Day surgery (SDC) | payer OTHER ==
[~2019-03-03] VITALS: Ht 170.2 cm; Wt 104.3 kg
[2019-03-03] VITALS (8 sets, daily range): BP systolic 133–153; BP diastolic 81–101
[~2019-03-03 08:03] MED LIST changes: -BUPIVACAINE HCL 0.25% 30 ML VIAL As Ordered ONE; +COLC1TAB13 PO; -ISOVUE-M 300 61% 15ML VIAL (Q9967) As Ordered ONE; -LIDOCAINE 1% SDV INJ 30 ML VIAL As Ordered ONE; +LR 1,000 ML IV ONE; +OXYC10TA3 PO; +TIZA4CAP PO; +TIZA4TAB4 PO; +TRAM50TA2 PO; +ZYLO300T6 PO; +ceFAZolin SOD 1 GM in D5W MINI-BAG PLUS 50 ML IV ONE
[2019-03-03] MEDS ORDERED: ISOVUE-300 61% 50ML VIAL (Q9967) As Ordered ONE (08:27)
[2019-03-03] MEDS ORDERED: LIDOCAINE W/EPINEPHRINE 1% 20ML VIAL As Ordered ONE (08:27)
[2019-03-03] MEDS ORDERED: BUPIVACAINE HCL 0.25% 30 ML VIAL As Ordered ONE (08:28)
[2019-03-03] MEDS ORDERED: MIDAZOLAM INJ 2 MG/2 ML VIAL (J2250) As Ordered ONE (09:51)
[2019-03-03] MEDS ORDERED: fentaNYL 100 MCG/2 ML INJECTION (J3010) As Ordered ONE (09:51)
[2019-03-03] MEDS ORDERED: PERCOCET 5MG/325MG TAB As Ordered ONE (11:54)
[2019-03-03] MEDS ORDERED: PERCOCET 5MG/325MG TAB PO PRN (12:15)
[2019-03-03] MEDS ORDERED: ONDANSETRON 4MG/2ML VIAL (J2405) IV PRN (12:15)
--- NOTE | 2019-03-03 12:21 | CR.PDOC ---
General Date of Consultation: Mar 03, 2019 Referring Provider: Anatoly Epstein MD Consultation CONSULT FOR: Dr. Epstein pain service REASON FOR CONSULT: Medical management HISTORY OF PRESENT ILLNESS: This is a 33-year-old man with long history of back pain history of lumbar fusion with revision has been following of the plan clinic and felt to be a good candidate for dorsal column spinal cord stimulator which was implanted earlier today by Dr. Thomas as an elective procedure. The patient denies any significant past medical history or complaints at this time Otherwise patient denies weight loss, hair loss, headache, visual changes, chest pain, shortness of breath, cough, nausea, vomiting, diarrhea, abdominal pain, change in mood PAST MEDICAL HISTORY: 1. Obstructive sleep apnea noncompliant with CPAP. 2. Gout. 3. Gastroesophageal reflux disease 4. Chronic back pain. HOME MEDICATIONS: Please see below. ALLERGIES: Please see below PAST SURGICAL HISTORY: 1. Lumbar fusion with revision. 2. Right total hip replacement. SOCIAL HISTORY: Lives with: and children, Employment: Not working, Tobacco use: Denies. ETOH: Rare intake last drink over a month ago, Illicit drug use: Denies, CODE STATUS: Full code FAMILY HISTORY:Reviewed and noncontributory REVIEW OF SYSTEMS: 10 systems reviewed and negative other than HPI PHYSICAL EXAMINATION: VITAL SIGNS: Please see below GENERAL: Pleasant Young muscular man sitting up in bed awake alert oriented speaking in complete sentences no acute distress he is examined in the PACU. HEENT: Moist mucous membranes no elevation in CVP CARDIOVASCULAR: S1 S2 regular no additional heart sounds appreciated. RESPIRATORY: Clear to auscultation bilaterally. ABDOMINAL: Bowel sounds present abdomen soft and nontender EXTREMITIES: No clubbing cyanosis or edema NEUROLOGICAL: Spontaneously moves all 4 extremities cranial 2 through 12 grossly intact no gross focal deficits appreciated PSYCHOLOGICAL: Appropriate LABORATORY DATA: See below. MICROBIOLOGY: Please see below. IMAGING: None ASSESSMENT & PLAN: This is a 33-year-old man postop day 0 for insertion of dorsal columns stimulator. PROBLEMS: 1. Chronic back pain: Patient is postop day 0 for insertion of the dorsal column stimulator as per the pain clinic. He appears to tolerate the procedure went quite well, he will follow-up outpatient with Dr. Thomas the patient tells me his discharge paperwork is ordered. Completed and the plan is for him to go home early tomorrow morning. 2. Obstructive sleep apnea: Recommend outpatient follow-up usage of his CPAP machine he tells me he does not work for him and it is broken at the present time. While hospitalize I will monitor him on immunosuppressive protocol 3. Gout: No active flare will continue with his home allopurinol 300 mg by mouth twice a day 4.Reflux: Patient does not take any PPI or H2 blockers his symptoms are well- controlled presently DVT PROPHYLAXIS: As per primary service Thank you for this interesting consult, we will continue to follow along with you. Please Vocera secure text or call with any specific questions. Vital Signs/I&O Vital Signs Date Time Temp Pulse Resp B/P (MAP) Pulse Ox O2 Delivery O2 Flow Rate FiO2 03/03/19 12:00 69 18 126/82 (97) 96 03/03/19 11:49 97.6 Allergies Coded Allergies: amitriptyline (Verified Allergy, Unknown, SOB, 02/25/19) Home Medications Scheduled Allopurinol (Zyloprim) 300 Mg Tablet, 300 MG PO BID, (Reported) Tizanidine HCl (Tizanidine HCl) 4 Mg Tablet, 4 MG PO DAILY, (Reported) Tizanidine HCl (Tizanidine HCl) 4 Mg Capsule, 8 MG PO QHS, (Reported) Scheduled PRN Colchicine (Colchicine) 0.6 Mg Tablet, 0.6 MG PO PRN PRN for PAIN, (Reported) Oxycodone HCl/Acetaminophen (Oxycodone-Acetaminophen 10-325) 1 Each Tablet, 1 TAB PO PRN PRN for PAIN, (Reported) Tramadol HCl (Tramadol HCl) 50 Mg Tablet, 50 MG PO PRN PRN for PAIN, (Reported) DAV STEWART MD Mar 03, 2019 12:21
[2019-03-03] MEDS ORDERED: oxyCODONE 5MG TAB PO PRN ×2 (16:00)
[2019-03-03] MEDS: ceFAZolin SOD 1 GM in D5W MINI-BAG PLUS 50 ML IV SCH (16:32)
--- NOTE | 2019-03-03 18:05 | REP ---
C-ARM VIEWS THORAX: Four C-ARM views of the thorax are performed during placement of dorsal column stimulator device. Two leads are seen in the thoracic region in the midline. 9 minutes and 30 seconds of fluoroscopy time was utilized. Electronically Signed by Lc Early MD 03/05/2019 09:56 A
[2019-03-03] MEDS: ALLOPURINOL 300 MG TAB PO SCH (20:02)
[2019-03-03] MEDS ORDERED: tiZANidine 4 MG TAB PO PRN (21:00)
[2019-03-04] MEDS: ceFAZolin SOD 1 GM in D5W MINI-BAG PLUS 50 ML IV SCH (01:40)
[2019-03-04 02:30] VITALS: BP 131/81
[2019-03-04 06:30] VITALS: BP 127/83
[2019-03-04] MEDS: ALLOPURINOL 300 MG TAB PO SCH (08:13)
--- NOTE | 2019-03-11 15:39 | ROPAIN ---
DATE OF PROCEDURE: 03/03/2019 PREPROCEDURE DIAGNOSIS: Lumbar post laminectomy pain syndrome. POSTPROCEDURE DIAGNOSIS: Lumbar post laminectomy pain syndrome. OPERATIVE PROCEDURE: Spinal column stimulator trial. SURGEON: Anatoly Epstein MD ARCHEOLOGY PROFESSOR: ANESTHESIA: Local with monitored anesthesia care. PREOPERATIVE NOTE: Mr. Padgett is a 33-year-old male patient with history of low back and leg pain. He has been suffering of this condition for many years. He had back surgery. He uses medication management and interventional therapy but unfortunately the pain has persisted. He is in the operating room today for a spinal column stimulator trial. Patient denies fevers, chills, new changes in his urinary or bowel control. DESCRIPTION OF PROCEDURE: After consent was reviewed with the patient, the patient was brought to the procedure room and placed in the prone position. Thoracolumbar area was cleaned with Betadine solution and draped aseptically. The procedure was done under sterile conditions. Anesthesia 1 gram IV. Under fluoroscopic guidance, the first target was selected at the interlaminar level of T12-L1. Lidocaine was used to numb the skin and the subcutaneous tissue below it. An epidural Touhy needle 16 gauge was advanced until the right lamina of L1 was touched and by the loss of resistance technique. The epidural space was reached 7 cm deep into the skin by the loss of resistance technique. A 16-contact lead from [employer] was advanced through this needle to the posterior medial aspect of the epidural space and advanced to the level of approximately T6. A decision was made to put a second lead. Lidocaine was used to numb the skin and the subcutaneous tissues below it. A second epidural Touhy needle 17 gauge was advanced under fluoroscopic guidance until I touched the left lamina of L2. This was at the interlaminar level of L1-L2. Then by the loss of resistance technique the epidural space was reached 6 cm deep to the skin by the loss of resistance technique. A second lead from [employer] with 16-contact was advanced through this lead to the posterior medial aspect of the epidural space and placed parallel to the first one. After the leads were positioned, I connected extensions which was connected to the computer system of [employer] and we started to do programming. It was a simple 30 minute programming where I changed the contact used for stimulation, I changed the position of the leads. When patient was having adequate stimulation of the back and leg, the position of the leads were at the position of T6, T7 and T8 as seen on AP and lateral views. The extension cables were disconnected. The stylets were removed and I attached the leads to the patient's skin using Steri-Strips and Tegaderms. X-ray films were done showing the position of the T6, T7 and T8 and kept on the patient's medical record for future reference. There were no complications during the procedure. The patient was sent to the recovery room to start the trial.
== END 2019-03-04 08:50 | disposition home or self-care (01) ==
LOC: M SDC 08:03 → M MSPAV 12:47 → M SDC 03-04 08:50
PROVIDERS: ATTEND Anesthesiology
DX: M96.1 Postlaminectomy syndrome, not elsewhere classified (principal); K21.9 Gastro-esophageal reflux disease without esophagitis; M10.9 Gout, unspecified; R06.83 Snoring; G47.33 Obstructive sleep apnea (adult) (pediatric); Z88.8 Allergy status to other drugs, medicaments and biological substances; Z79.899 Other long term (current) drug therapy; Z87.442 Personal history of urinary calculi; Z68.36 Body mass index [BMI] 36.0-36.9, adult
CPT/HCPCS: 63650; C1778; J0690; J2250; J3010

== ENCOUNTER → 2019-03-07 | Outpatient (CLI) | payer OTHER, MEDICARE ==
[~2019-03-07] MED LIST changes: -LR 1,000 ML IV ONE; -ceFAZolin SOD 1 GM in D5W MINI-BAG PLUS 50 ML IV ONE
--- NOTE | 2019-03-07 15:13 | REP ---
C-spine: Limited study, two views. History: Dorsal column stimulator lead pole. Findings: A sequence of two last image hold fluoroscopically obtained spot radiographs of the thoracic spine document dorsal column stimulator lead position. 5 seconds of fluoroscopy time is reported. Electronically Signed by James Mejias MD 03/07/2019 04:29 P
--- NOTE | 2019-03-21 00:54 | ECWPNPC ---
PATIENT NAME: ISADORA MOLINA : 1985 GENDER: MALE VISIT DATE: 03/07/2019 DISCHARGE DATE: 03/07/19 1448 VISIT LOCKED DATE TIME: PHYSICIAN: SHE GONSALVES MD RESOURCE: SHE GONSALVES MD REASON FOR APPOINTMENT 1. LEAD PULL HISTORY OF PRESENT ILLNESS HISTORY OF PRESENT ILLNESS: PAIN THE PATIENT DESCRIBES THE PAIN... 33 YEAR OLD MALE PATIENT WITH A HISTORY OF CHRONIC LOW BACK AND LEG PAIN. THE PATIENT DESCRIBES THE PAIN ACHING, SORE, SHARP, STABBING, SHOOTING, DAILY, AND CONTINUOUS WITH A PAIN SCORE OF 2-9/10 DEPENDING ON PHYSICAL ACTIVITY. THE PATIENT STATES HE EXPERIENCED GOOD PAIN RELIEF FROM THE DCS TRIAL AND REPORTS OVER 80 PERCENT IMPROVEMENT IN HIS PAIN. THE PATIENT SAYS HE IS VERY SATISFIED WITH THE RESULTS FROM HIS TRIAL AND HE WOULD LIKE TO CONTINUE WITH THE DCS IMPLANT. PATIENT DENIES UNEXPLAINABLE WEIGHT LOSS, FEVER, CHILLS, NEW CHANGES ON HIS URINARY OR BOWEL CONTROL. FALL RISK SCREENING: SCREENING :NO FALLS REPORTED IN THE LAST YEAR CURRENT MEDICATIONS TAKING KEFLEX 500 MG CAPSULE 1 CAPSULE ORALLY THREE TIMES DAILY MDD3 TAKING ALLOPURINOL 300 MG TABLET 2 TABLET ORALLY ONCE A DAY TAKING COLCHICINE 0.6 MG TABLET ONE TAB ORALLY EVERY 12 HOURS PRN PAIN TAKING TIZANIDINE HCL 4 MG TABLET 1 TABLET NEEDED ORALLY TAKE 1 IN AM AND 2 AT BEDTIME TAKING TRAMADOL HCL 50 MG TABLET 1 -2 TABLETS ORALLY EVERY 6 HRS PRN PAIN MDD=3 TAKING PERCOCET 10-325 MG TABLET 1 TABLET NEEDED ORALLY BID NOT-TAKING AMITRIPTYLINE HCL 25 MG TABLET 1 TO 2 TAB ORALLY BEFORE BEDTIME NOT-TAKING TRAMADOL HCL 50 MG TABLET 1 -2 TABLET NEEDED ORALLY Q 8SRS PRN PAIN MDD=3, NOTES: DUPLICATE MEDICATION LIST REVIEWED AND RECONCILED WITH THE PATIENT PAST MEDICAL HISTORY CHRONIC LOW BACK PAIN GOUT SLEEP APNEA WITH CPAP REFLUX PTSD HIP PAIN AVASCULAR NECROSIS BILAT HIPS DX 03/2018 KIDNEY STONE ALLERGIES AMITRIPTYLINE: DYSPNEA SURGICAL HISTORY SPINAL FUSION X 2 2017 TOTAL RIGHT HIP 05/2018 DCS TRIAL 02/2019 FAMILY HISTORY FATHER: ALIVE, DIAGNOSED WITH HYPERTENSION MOTHER: ALIVE, HYPERTENSION PATERNAL GRAND FATHER: OTHER MALIGNANT NEOPLASM OF UNSPECIFIED SITE MATERNAL GRAND FATHER: UNSPECIFIED HEART DISEASE MATERNAL GRAND MOTHER: DIABETES 1 BROTHER(S) , 1 SISTER(S) - HEALTHY. 1 SON(S) - HEALTHY. GRANDFATHER - PROSTATE CANCER. SOCIAL HISTORY GENERAL: TOBACCO USE ARE YOU A:NONSMOKER ADDITIONAL FINDINGS: TOBACCO USER QUIT CHEWING 6 WEEKS AGO OTHERS AT HOME: SPOUSE, CHILD. DIET: REGULAR. LANGUAGE LANGUAGES SPOKEN:CROATIAN RECREATIONAL DRUG USE DRUG USE?NO EXERCISE: NO REGULAR EXERCISE. LEARNING BARRIERS / SPECIAL NEEDS BARRIERS TO LEARNING?NO HEARING IMPAIRED?NO VISION IMPAIRED?NO COGNITIVELY IMPAIRED?NO READINESS TO LEARN?YES LEARNING PREFERENCES?NO LEARNING CAPABILITIES PRESENT?YES EMOTIONAL BARRIERS?NO SPECIAL DEVICES?YES :[facility] PFS, CLERGY, PUBLIC HEALTH REFERRALS PFS REFERRAL NEEDED?NO CLERGY REFERRAL NEEDED?NO PUBLIC HEALTH REFERRAL NEEDED?NO WAS THE PROVIDER NOTIFIED OF ANY PERTINENT INFO?NO HAS THE PATIENT BEEN EDUCATED REGARDING HIS/HER PLAN OF CARE?YES HAS THE PATIENT BEEN EDUCATED REGARDING PAIN, THE RISK FOR PAIN, THE IMPORTANCE OF EFFECTIVE PAIN MANAGEMENT, AND THE PAIN ASSESSMENT PROCESS?YES LATEX QUESTIONNAIRE LATEX ALLERGY : HAVE YOU EVER DEVELOPED ANY TYPE OF REACTION AFTER HANDLING LATEX PRODUCTS SUCH RUBBER GLOVES, CONDOMS, DIAPHRAGMS, BALLOONS, SOCKS, OR UNDERWEAR?NO LATEX ALLERGY : HAVE YOU EVER DEVELOPED ANY TYPE OF REACTION DURING OR AFTER DENTAL APPOINTMENT, VAGINAL/RECTAL EXAMINATION, SURGICAL PROCEDURE, OR ANY OTHER EXPOSURE?NO DATE ASKED : 09/16/2018 LATEX RISK : HAVE YOU EVER HAD ANY DIFFICULTY BREATHING OR HIVES AFTER EATING OR HANDLING ANY FRUITS, OR VEGETABLES; SUCH KIWI, BANANAS, STONE FRUITS, OR CHESTNUTSNO LATEX RISK : DO YOU HAVE A PREVIOUS PERSONAL HISTORY OF MORE THAN NINE SURGERIES, SPINA BIFIDA, OR REPEATED CATHERIZATIONS? NO LATEX RISK : ARE YOU FREQUENTLY EXPOSED TO LATEX PRODUCTS IN YOUR OCCUPATION?NO CAFFEINE CAFFEINE USE?YES HOW OFTEN AND HOW MUCH? SUZANNE ADVANCE DIRECTIVE ADVANCE DIRECTIVE DISCUSSED WITH PATIENT:YES PT HAS NO ADVANCED DIRECTIVES, DECLINES INFORMATION ON HCP AT THIS TIME. MORAVIAN [id number] NONE MARITAL STATUS: . ALCOHOL SCREENING DID YOU HAVE A DRINK CONTAINING ALCOHOL IN THE PAST YEAR?YES HOW OFTEN DID YOU HAVE A DRINK CONTAINING ALCOHOL IN THE PAST YEAR?MONTHLY OR LESS (1 POINT) POINTS1 INTERPRETATIONNEGATIVE OCCUPATION: DISABLED. REVIEWED WITH PT 02/18/18 4495 LASREVIEWED WITH PATIENT 04/18/18 1009 JSREVIEWED WITH PATIENT 05/31/18 1523 JSREVIEWED WITH PT 09/16/18 0947 BVREVIEWED WITH PATIENT 09/19/18 0906 JSREVIEWED WITH PATIENT 10/03/18 1046 JSREVIEWED WITH PT 11/05/18 1515 BVREVIEWED WITH PATIENT 10/22/18 1522 JSREVIEWED WITH PATIENT 11/29/18 0956 JSREVIEWED WITH PATIENT 01/10/19 1527 JS. HOSPITALIZATION/MAJOR DIAGNOSTIC PROCEDURE SEE ABOVE REVIEW OF SYSTEMS REVIEWED BY: PROVIDER: SHE GONSALVES MD . CONSTITUTIONAL: ANY CHANGE IN YOUR MEDICAL CONDITION? NO . CHILLS NO . FEVER NO . INFECTION: DO YOU HAVE NEW INFECTIONS? NO . DO YOU HAVE HISTORY OF MRSA? NO . MUSCULOSKELETAL: ANY NEW PATTERNS OF PAIN OR NUMBNESS? YES, DCS BOX IS V IRRITATING . GASTROENTEROLOGY: ANY NEW CHANGE IN BOWEL CONTROL? NO . GENITOURINARY: ANY NEW CHANGE IN BLADDER CONTROL? NO . IS THERE A CHANCE YOU COULD BE ? NO . HEMATOLOGY/LYMPH: DO YOU TAKE ANY BLOOD THINNERS? (FOR EXAMPLE- COUMADIN, PLAVIX, AGGRENOX, PLATEL, PRADAXA, OR XARELTO) NO . WHEN WAS YOUR LAST DOSE? DATE: TIME: . NEUROLOGY: HAVE YOU FALLEN IN THE PAST 12 MONTHS? NO . ANY NEW EXTREMITY NUMBNESS OR WEAKNESS? NO . CARDIOLOGY: DO YOU HAVE A PACEMAKER OR DEFIBRILLATOR? YES, DCS TRIAL . RESPIRATORY: HAVE YOU BEEN SICK IN THE PAST WEEK? NO . FEVER NO . FLU LIKE SYMPTOMS? NO . COUGH NO . INTEGUMENTARY: DO YOU HAVE ANY RASHES OR OPEN SORES? YES, SORES NEAR DCS WIRES . ALLERGIC/IMMUNO: ARE YOU ALLERGIC TO IV DYE? NO . ANY NEW ALLERGIES? NO . PSYCHIATRIC: DO YOU HAVE THOUGHTS OF HURTING YOURSELF OR SOMEONE ELSE? NO . ARE YOU ABUSED, NEGLECTED, OR IN AN UNSAFE ENVIRONMENT? NO . ENDOCRINOLOGY: ARE YOU DIABETIC? NO . OTHER: DO YOU NEED ANY PRESCRIPTIONS? YES, OXYCODONE 10/325, TRAMADOL 50 . IF YES, PLEASE LIST: ____ . ANY NEW PROBLEMS WITH YOUR MEDICATIONS? NO . WHEN DID YOU LAST EAT? ____ . WHEN DID YOU LAST DRINK? ____ . WHAT DID YOU LAST DRINK? ____ . NAME OF PERSON DRIVING YOU HOME? ____ . DO YOU HAVE ANY OTHER QUESTIONS OR CONCERNS NO . VITAL SIGNS WT 236.4 LBS, HT 67 IN, BMI 37.02 INDEX, BP 153/86 MM HG, HR 100 /MIN, RR 18 /MIN, TEMP 97.6 F, OXYGEN SAT % 94%, NA INITIALS AW 1301, REVIEWED BY: EM. EXAMINATION GENERAL EXAMINATION: PATIENT IS ALERT O X 3 AND COOPERATIVE. THE PATIENT WAS BROUGHT INTO THE PROCEDURE ROOM. THE LEADS WERE COMPLETELY REMOVED. NO SIGNS OF INFECTION PRESENT. X-RAYS OF THE LEADS WERE DONE TODAY AND LEFT AT [facility] FOR FUTURE REFERENCE. ASSESSMENTS LUMBAR POST-LAMINECTOMY SYNDROME - M96.1 (PRIMARY) TREATMENT LUMBAR POST-LAMINECTOMY SYNDROME [facility] [place] FLUORO GUIDE SPINE INJECTION (PAIN)[id number] CLINICAL NOTES: WE DISCUSSED SEVERAL ISSUES WITH MR. MOLINA'S PAIN MANAGEMENT CASE. THE PATIENT HAD A DCS TRIAL PERFORMED ON 03/03/19 AND IS HERE TODAY TO HAVE THE DEVICE'S LEAD PULLS REMOVED. THE PATIENT SAYS HE EXPERIENCED OVER 80 PERCENT IMPROVEMENT WITH HIS PAIN AND HE IS VERY SATISFIED WITH THE TRIAL RESULTS. THE PATIENT SAYS HE WOULD LIKE TO MOVE FORWARD WITH THE PERCUTANEOUS IMPLANT. THEREFORE, I WILL REQUEST AUTHORIZATION FOR THE PERCUTANEOUS DCS IMPLANT. THE PATIENT WILL FOLLOW UP IN 6 WEEKS TO DISCUSS THE IMPLANT AND AUTHORIZATION STATUS. INSTRUCTIONS WERE GIVEN, QUESTIONS WERE ANSWERED, PATIENT REPORTS UNDERSTANDING AND AGREES WITH THE PLAN. I, JACOB CESPEDES, DOCUMENTED THE ABOVE INFORMATION ACTING A SCRIBE FOR DR. GONSALVES. I HAVE REVIEWED THE ABOVE DOCUMENT, WRITTEN BY JACOB HENNING AND I VERIFY THAT IT IS ACCURATE. . DISPOSITION & COMMUNICATION FOLLOW UP 6 WEEKS ELECTRONICALLY SIGNED BY SHE GONSALVES MD, MD ON 03/20/2019 AT 05:47 PM EDT DISCLAIMER : THIS IS A VISIT SUMMARY EXTRACTED FROM THE [employer] CHART. IT IS NOT A COPY OF THE [employer] PROGRESS NOTE. ESTHER
== END ==
LOC: M PAIN 13:00
PROVIDERS: ATTEND Anesthesiology
DX: M96.1 Postlaminectomy syndrome, not elsewhere classified (principal); Z79.891 Long term (current) use of opiate analgesic; Z79.899 Other long term (current) drug therapy; Z88.8 Allergy status to other drugs, medicaments and biological substances

== ENCOUNTER → 2019-04-18 | Outpatient (CLI) | payer OTHER, MEDICARE ==
[~2019-04-18] MED LIST changes: +VITA500045 PO
--- NOTE | 2019-04-29 02:20 | ECWPNPC ---
PATIENT NAME: ISADORA MOLINA : 1985 GENDER: MALE VISIT DATE: 04/18/2019 DISCHARGE DATE: 04/18/19 1027 VISIT LOCKED DATE TIME: PHYSICIAN: SHE GONSALVES MD RESOURCE: SHE GONSALVES MD REASON FOR APPOINTMENT 1. LOW BACK HISTORY OF PRESENT ILLNESS HISTORY OF PRESENT ILLNESS: PAIN THE PATIENT DESCRIBES THE PAIN... 33 YEAR OLD MALE PATIENT WITH A HISTORY OF CHRONIC LOW BACK AND LEG PAIN. THE PATIENT DESCRIBES THE PAIN ACHING, BURNING, SHARP, STABBING, SHOOTING, DAILY, AND CONTINUOUS WITH A PAIN SCORE OF 7-10/10 DEPENDING ON PHYSICAL ACTIVITY. THE PATIENT STATES HIS PAIN BEGINS IN HIS LOW BACK AND RADIATES DOWN BOTH LEGS, BUT THE PAIN IS WORSE IN THE RIGHT LEG. THE PATIENT SAYS HE HAS HAD A BACK SURGERY DONE IN THE PAST AND A DCS TRIAL, WHICH GAVE HIM OVER 80 PERCENT OF GOOD PAIN RELIEF. THE PATIENT SAYS HE WOULD LIKE TO MOVE FORWARD WITH THE DCS IMPLANT. FALL RISK SCREENING: SCREENING :NO FALLS REPORTED IN THE LAST YEAR CURRENT MEDICATIONS TAKING ALLOPURINOL 300 MG TABLET 2 TABLET ORALLY ONCE A DAY TAKING COLCHICINE 0.6 MG TABLET ONE TAB ORALLY EVERY 12 HOURS PRN PAIN TAKING TRAMADOL HCL 50 MG TABLET 1 -2 TABLETS ORALLY EVERY 6 HRS PRN PAIN MDD=3 TAKING PERCOCET 10-325 MG TABLET 1 TABLET NEEDED ORALLY BID TAKING TIZANIDINE HCL 4 MG TABLET 1 TABLET NEEDED ORALLY TAKE 1 IN AM AND 2 AT BEDTIME TAKING VITAMIN D (ERGOCALCIFEROL) 02217 UNIT CAPSULE 1 CAPSULE ORALLY WEEKLY NOT-TAKING AMITRIPTYLINE HCL 25 MG TABLET 1 TO 2 TAB ORALLY BEFORE BEDTIME NOT-TAKING TRAMADOL HCL 50 MG TABLET 1 -2 TABLET NEEDED ORALLY Q 8SRS PRN PAIN MDD=3, NOTES: DUPLICATE DISCONTINUED KEFLEX 500 MG CAPSULE 1 CAPSULE ORALLY THREE TIMES DAILY MDD3 MEDICATION LIST REVIEWED AND RECONCILED WITH THE PATIENT PAST MEDICAL HISTORY CHRONIC LOW BACK PAIN GOUT SLEEP APNEA WITH CPAP REFLUX PTSD HIP PAIN AVASCULAR NECROSIS BILAT HIPS DX 03/2018 KIDNEY STONE ALLERGIES AMITRIPTYLINE: DYSPNEA SURGICAL HISTORY SPINAL FUSION X 2 2017 TOTAL RIGHT HIP 05/2018 DCS TRIAL 02/2019 FAMILY HISTORY FATHER: ALIVE, DIAGNOSED WITH HYPERTENSION MOTHER: ALIVE, HYPERTENSION PATERNAL GRAND FATHER: OTHER MALIGNANT NEOPLASM OF UNSPECIFIED SITE MATERNAL GRAND FATHER: UNSPECIFIED HEART DISEASE MATERNAL GRAND MOTHER: DIABETES 1 BROTHER(S) , 1 SISTER(S) - HEALTHY. 1 SON(S) - HEALTHY. GRANDFATHER - PROSTATE CANCER. SOCIAL HISTORY GENERAL: TOBACCO USE ARE YOU A:NONSMOKER ADDITIONAL FINDINGS: TOBACCO USER QUIT CHEWING 6 WEEKS AGO OTHERS AT HOME: SPOUSE, CHILD. DIET: REGULAR. LANGUAGE LANGUAGES SPOKEN:LUXEMBOURGISH RECREATIONAL DRUG USE DRUG USE?NO EXERCISE: NO REGULAR EXERCISE. LEARNING BARRIERS / SPECIAL NEEDS BARRIERS TO LEARNING?NO HEARING IMPAIRED?NO VISION IMPAIRED?NO COGNITIVELY IMPAIRED?NO READINESS TO LEARN?YES LEARNING PREFERENCES?NO LEARNING CAPABILITIES PRESENT?YES EMOTIONAL BARRIERS?NO SPECIAL DEVICES?YES :CANE [facility] CLIN[facility] PFS, CLERGY, PUBLIC HEALTH REFERRALS PFS REFERRAL NEEDED?NO CLERGY REFERRAL NEEDED?NO PUBLIC HEALTH REFERRAL NEEDED?NO WAS THE PROVIDER NOTIFIED OF ANY PERTINENT INFO?NO HAS THE PATIENT BEEN EDUCATED REGARDING HIS/HER PLAN OF CARE?YES HAS THE PATIENT BEEN EDUCATED REGARDING PAIN, THE RISK FOR PAIN, THE IMPORTANCE OF EFFECTIVE PAIN MANAGEMENT, AND THE PAIN ASSESSMENT PROCESS?YES LATEX QUESTIONNAIRE LATEX ALLERGY : HAVE YOU EVER DEVELOPED ANY TYPE OF REACTION AFTER HANDLING LATEX PRODUCTS SUCH RUBBER GLOVES, CONDOMS, DIAPHRAGMS, BALLOONS, SOCKS, OR UNDERWEAR?NO LATEX ALLERGY : HAVE YOU EVER DEVELOPED ANY TYPE OF REACTION DURING OR AFTER DENTAL APPOINTMENT, VAGINAL/RECTAL EXAMINATION, SURGICAL PROCEDURE, OR ANY OTHER EXPOSURE?NO DATE ASKED : 09/16/2018 LATEX RISK : HAVE YOU EVER HAD ANY DIFFICULTY BREATHING OR HIVES AFTER EATING OR HANDLING ANY FRUITS, OR VEGETABLES; SUCH KIWI, BANANAS, STONE FRUITS, OR CHESTNUTSNO LATEX RISK : DO YOU HAVE A PREVIOUS PERSONAL HISTORY OF MORE THAN NINE SURGERIES, SPINA BIFIDA, OR REPEATED CATHERIZATIONS? NO LATEX RISK : ARE YOU FREQUENTLY EXPOSED TO LATEX PRODUCTS IN YOUR OCCUPATION?NO CAFFEINE CAFFEINE USE?YES HOW OFTEN AND HOW MUCH? SUZANNE ADVANCE DIRECTIVE ADVANCE DIRECTIVE DISCUSSED WITH PATIENT:YES PT HAS NO ADVANCED DIRECTIVES, DECLINES INFORMATION ON HCP AT THIS TIME. 04/18/19 NONDENOMINATIONAL [id number] NONE MARITAL STATUS: . ALCOHOL SCREENING DID YOU HAVE A DRINK CONTAINING ALCOHOL IN THE PAST YEAR?YES HOW OFTEN DID YOU HAVE A DRINK CONTAINING ALCOHOL IN THE PAST YEAR?MONTHLY OR LESS (1 POINT) POINTS1 INTERPRETATIONNEGATIVE OCCUPATION: DISABLED. REVIEWED WITH PT 02/18/18 3135 LASREVIEWED WITH PATIENT 04/18/18 1009 JSREVIEWED WITH PATIENT 05/31/18 1523 JSREVIEWED WITH PT 09/16/18 0947 BVREVIEWED WITH PATIENT 09/19/18 0906 JSREVIEWED WITH PATIENT 10/03/18 1046 JSREVIEWED WITH PT 11/05/18 1515 BVREVIEWED WITH PATIENT 10/22/18 1522 JSREVIEWED WITH PATIENT 11/29/18 0956 JSREVIEWED WITH PATIENT 01/10/19 1527 JSREVIEWED WITH PATIENT 04/18/19 0910 BV. HOSPITALIZATION/MAJOR DIAGNOSTIC PROCEDURE SEE ABOVE REVIEW OF SYSTEMS REVIEWED BY: PROVIDER: SHE GONSALVES MD . CONSTITUTIONAL: ANY CHANGE IN YOUR MEDICAL CONDITION? NO . CHILLS NO . FEVER NO . INFECTION: DO YOU HAVE NEW INFECTIONS? NO . DO YOU HAVE HISTORY OF MRSA? NO . MUSCULOSKELETAL: ANY NEW PATTERNS OF PAIN OR NUMBNESS? NO . GASTROENTEROLOGY: ANY NEW CHANGE IN BOWEL CONTROL? NO . GENITOURINARY: ANY NEW CHANGE IN BLADDER CONTROL? NO . IS THERE A CHANCE YOU COULD BE ? NO . HEMATOLOGY/LYMPH: DO YOU TAKE ANY BLOOD THINNERS? (FOR EXAMPLE- COUMADIN, PLAVIX, AGGRENOX, PLATEL, PRADAXA, OR XARELTO) NO . WHEN WAS YOUR LAST DOSE? DATE: TIME: . NEUROLOGY: HAVE YOU FALLEN IN THE PAST 12 MONTHS? NO . ANY NEW EXTREMITY NUMBNESS OR WEAKNESS? NO . CARDIOLOGY: DO YOU HAVE A PACEMAKER OR DEFIBRILLATOR? NO . RESPIRATORY: HAVE YOU BEEN SICK IN THE PAST WEEK? NO . FEVER NO . FLU LIKE SYMPTOMS? NO . COUGH NO . INTEGUMENTARY: DO YOU HAVE ANY RASHES OR OPEN SORES? NO . ALLERGIC/IMMUNO: ARE YOU ALLERGIC TO IV DYE? NO . ANY NEW ALLERGIES? NO . PSYCHIATRIC: DO YOU HAVE THOUGHTS OF HURTING YOURSELF OR SOMEONE ELSE? NO . ARE YOU ABUSED, NEGLECTED, OR IN AN UNSAFE ENVIRONMENT? NO . ENDOCRINOLOGY: ARE YOU DIABETIC? NO . OTHER: DO YOU NEED ANY PRESCRIPTIONS? NO . IF YES, PLEASE LIST: ____ . ANY NEW PROBLEMS WITH YOUR MEDICATIONS? NO . WHEN DID YOU LAST EAT? ____ . WHEN DID YOU LAST DRINK? ____ . WHAT DID YOU LAST DRINK? ____ . NAME OF PERSON DRIVING YOU HOME? ____ . DO YOU HAVE ANY OTHER QUESTIONS OR CONCERNS PT WOULD LIKE TO DISCUSS PERMANENT DORSAL COLUMN STIMULATOR . VITAL SIGNS WT 236 LBS, HT 67 IN, BMI 36.96 INDEX, BP 148/78 MM HG, HR 72 /MIN, RR 18 /MIN, TEMP 98.1 F, OXYGEN SAT % 97%, NA INITIALS SC 09:07, REVIEWED BY: BV. EXAMINATION GENERAL EXAMINATION: PATIENT IS ALERT O X 3 AND COOPERATIVE. ANTALGIC WALK. RIGHT LEG IS WEAKER AT EXTENSION AND FLEXION. STRAIGHT LEG RAISE OF THE RIGHT LEG IS POSITIVE AT 40 DEGREES FOR RADICULOPATHY. MRI OF THE LUMBAR SPINE DONE ON 11/05/2018 SHOWS A FUSION. ASSESSMENTS LUMBAR POST-LAMINECTOMY SYNDROME - M96.1 (PRIMARY) INTERVERTEBRAL DISC DISORDERS WITH RADICULOPATHY, LUMBAR REGION - M51.16 TREATMENT LUMBAR POST-LAMINECTOMY SYNDROME CLINICAL NOTES: WE DISCUSSED SEVERAL ISSUES WITH MR. MOLINA'S PAIN MANAGEMENT CASE. THE PATIENT IS INTERESTED IN MOVING FORWARD WITH THE DCS IMPLANT AFTER HE EXPERIENCED MORE THAN 80 PERCENT OF GOOD PAIN RELIEF FROM HIS DCS TRIAL DONE ON 03/03/2019. THEREFORE, WE WILL CONTINUE REQUESTING FOR AUTHORIZATION FROM THE [place] FOR A PERCUTANEOUS IMPLANT FOR THE PATIENT, WHICH THE SURGERY IS CURRENTLY SCHEDULED FOR 05/05/2019. I WILL REQUEST CLEARANCE FROM THE PATIENT'S PRIMARY CARE PROVIDER FOR THE IMPLANT. THE PATIENT WILL FOLLOW UP IN 6 WEEKS. INSTRUCTIONS WERE GIVEN, QUESTIONS WERE ANSWERED, PATIENT REPORTS UNDERSTANDING AND AGREES WITH THE PLAN. I, JACOB CESPEDES, DOCUMENTED THE ABOVE INFORMATION ACTING A SCRIBE FOR DR. GONSALVES. I HAVE REVIEWED THE ABOVE DOCUMENT, WRITTEN BY JACOB HENNING AND I VERIFY THAT IT IS ACCURATE. . PROCEDURE CODES FA211 ESTABILISHED PATIENT [facility] FACILITY CHARGE [id number] CURRENT MEDS W/DOSAGES DOCUMENTED G8730 PAIN ASSESS POS TOOL F/U PLAN DOC DISPOSITION & COMMUNICATION FOLLOW UP REASON: 2 APPTS: F/U 1 WEEK AFTER 05/05/19 FOR IMPLANT F/U, AND ALSO 6 WEEKS FROM TODAY ELECTRONICALLY SIGNED BY SHE GONSALVES MD, MD ON 04/28/2019 AT 12:19 PM EST DISCLAIMER : THIS IS A VISIT SUMMARY EXTRACTED FROM THE [employer] CHART. IT IS NOT A COPY OF THE [employer] PROGRESS NOTE. ESTHER
== END ==
LOC: M PAIN 09:30
PROVIDERS: ATTEND Anesthesiology
DX: M96.1 Postlaminectomy syndrome, not elsewhere classified (principal); M51.16 Intervertebral disc disorders with radiculopathy, lumbar region; G47.30 Sleep apnea, unspecified; Z86.59 Personal history of other mental and behavioral disorders; Z96.641 Presence of right artificial hip joint; Z87.891 Personal history of nicotine dependence; Z88.8 Allergy status to other drugs, medicaments and biological substances; Z79.891 Long term (current) use of opiate analgesic; Z79.899 Other long term (current) drug therapy

== ENCOUNTER 2019-05-05 07:05 | Day surgery (SDC) | payer OTHER ==
[~2019-05-05] VITALS: Ht 170.2 cm; Wt 103.9 kg
[2019-05-05] VITALS (9 sets, daily range): BP systolic 121–147; BP diastolic 57–90; O2SAT 96–98
[~2019-05-05 07:05] MED LIST changes: +LR 1,000 ML IV ONE; +ceFAZolin SOD 1 GM in D5W MINI-BAG PLUS 50 ML IV ONE
[2019-05-05] MEDS ORDERED: PROPOFOL 200 MG/20 ML VIAL As Ordered ONE ×2 (08:16→09:24)
[2019-05-05] MEDS ORDERED: MIDAZOLAM INJ 2 MG/2 ML VIAL (J2250) As Ordered ONE ×2 (08:16→11:09)
[2019-05-05] MEDS ORDERED: fentaNYL 250 MCG/5 ML INJECTION (J3010) As Ordered ONE (08:16)
[2019-05-05] MEDS ORDERED: LIDOCAINE 2% INJ 100 MG/5 ML SDV (FOR ANES.) As Ordered ONE (08:16)
[2019-05-05] MEDS ORDERED: BACITRACIN PWD 50,000 UNITS VIAL As Ordered ONE (08:38)
[2019-05-05] MEDS ORDERED: THROMBIN SOLN 20,000 UNITS KIT As Ordered ONE (08:38)
[2019-05-05] MEDS ORDERED: LIDOCAINE W/EPINEPHRINE 1% 20ML VIAL As Ordered ONE (08:38)
[2019-05-05] MEDS ORDERED: BUPIVACAINE HCL 0.25% 30 ML VIAL As Ordered ONE (08:46)
[2019-05-05] MEDS ORDERED: KETAMINE HCL 200 MG/20 ML VIAL As Ordered ONE (09:23)
[2019-05-05] MEDS ORDERED: ONDANSETRON 4MG/2ML VIAL (J2405) As Ordered ONE (09:39)
[2019-05-05] MEDS ORDERED: hydrALAZINE INJ 20 MG/ML VIAL As Ordered ONE (10:13)
[2019-05-05] MEDS ORDERED: BUPIVACAINE HCL 0.25% 10 ML VIAL As Ordered ONE (10:30)
[2019-05-05] MEDS ORDERED: HYDROmorphone HCL 2 MG/ML 1ML VIAL (J1170) As Ordered ONE (10:44)
[2019-05-05] MEDS ORDERED: LABETALOL HCL 100 MG/20 ML VIAL As Ordered ONE (11:30)
[2019-05-05] MEDS ORDERED: ceFAZolin 1GM INJ (J0690 PER 500MG) As Ordered ONE ×2 (12:40→12:43)
[2019-05-05] MEDS ORDERED: ceFAZolin 2 GM/D5W 50 ML IV BAG (J0690 PER 500MG) As Ordered ONE (12:41)
[2019-05-05] MEDS ORDERED: fentaNYL 100 MCG/2 ML INJECTION (J3010) As Ordered ONE ×2 (13:14→14:00)
--- NOTE | 2019-05-05 13:53 | REP ---
Limited thoracic spine series: Six views. History: Dorsal column stimulator leads. 6 minutes 39 seconds of fluoroscopy time is reported. Findings: A sequence of six last image hold fluoroscopically obtained spot radiographs of the thoracic spine document dorsal column stimulator lead position. Electronically Signed by James Mejias MD 05/05/2019 02:34 P
[2019-05-05] MEDS: MORPHINE 10 MG/ML 1ML VIAL (J2270) IV PRN ×4 (14:38→14:59)
[2019-05-05] MEDS ORDERED: MORPHINE 10 MG/ML 1ML VIAL (J2270) As Ordered ONE (14:44)
[2019-05-05] MEDS ORDERED: oxyCODONE 5MG TAB PO PRN ×2 (15:00→16:00)
[2019-05-05] MEDS ORDERED: PERCOCET 5MG/325MG TAB PO PRN (15:00)
[2019-05-05] MEDS ORDERED: ONDANSETRON 4MG/2ML VIAL (J2405) IV PRN (15:00)
[2019-05-05] MEDS ORDERED: LR 1,000 ML IV SCH (15:00)
[2019-05-05] MEDS: oxyCODONE 5MG TAB PO PRN (16:34)
[2019-05-05] MEDS ORDERED: traMADol 50 MG TAB PO PRN (17:45)
--- NOTE | 2019-05-05 17:53 | CR.PDOC ---
General Date of Consultation: May 05, 2019 Consultation REASON FOR CONSULTATION/CHIEF COMPLAINT: Status post dorsal column stimulator. HISTORY OF PRESENT ILLNESS: 33-year-old male with past medical history of chronic back pain due to work-related injury and multiple back surgeries (spinal fusion), PTSD, GERD, renal calculi, gout, obstructive sleep apnea, avascular necrosis, status post right hip replacement is admitted status post dorsal column stimulator placement. He is seen in the PACU, without any complaints at this time, tolerated the procedure without any complications, hospitalist team consulted for medical management. Patient denies any shortness of breath, nausea, vomiting, chest pain, diarrhea, constipation or belly pain at this time. Patient reports noncompliance with CPAP due to poor mask fitting. Of note, patient has chronic low back pain with radiation down both of his legs, unchanged at this time. 10 point review of system was negative except for above ALLERGIES: Please see below. HOME MEDICATIONS: Please see below. PAST MEDICAL HISTORY: 1. Chronic back pain. 2. PTSD. 3. GERD. 4. Gout. 5. Obstructive sleep apnea. 6. Avascular necrosis PAST SURGICAL HISTORY: 1. Right hip replacement 2. Spinal fusion 3. Dorsal calm stimulator FAMILY HISTORY: Noncontributory SOCIAL HISTORY: Denies smoking. Denies alcohol. Denies drug use PHYSICAL EXAMINATION: VITAL SIGNS: Please see below. GENERAL: No distress, obese HEENT: Normocephalic, atraumatic, moist mucous membranes NECK: Supple CARDIOVASCULAR EXAMINATION: S1, S2, no murmurs RESPIRATORY EXAMINATION: Clear to auscultation, no wheezing ABDOMINAL EXAMINATION: Soft, nontender, nondistended, positive bowel sounds EXTREMITIES: Range of motion intact SKIN: No rash NEUROLOGICAL EXAMINATION: Alert and oriented 3, no focal deficits PSYCHIATRIC EXAMINATION: Calm and cooperative LABORATORY DATA: Please see below. ASSESSMENT/PLAN: 33-year-old male with work-related back injury status post spinal fusion is being admitted after dorsal column similar placement. 1. Dorsal column stimulator placement. Postop management as per primary team, including pain control, routine labs ordered for tomorrow morning. 2. Gout. Continue allopurinol. 3. Obstructive sleep apnea. Noncompliant with CPAP, due to poor mask fitting, does not seem willing to use CPAP inpatient at this time, recommend outpatient follow-up with sleep physician to assess for different mask to improve compliance. 4. Avascular necrosis of bilateral hips. Reportedly due to intra-articular steroid injections, status post right hip replacement, currently without complaints. 5. PTSD. Follows outpatient with therapist, not medically treated, currently stable. DVT prophylaxis: TEDs. GI prophylaxis: Not needed Vital Signs/I&O Vital Signs Date Time Temp Pulse Resp B/P (MAP) Pulse Ox O2 Delivery O2 Flow Rate FiO2 05/05/19 16:50 98.2 80 18 147/80 (102) 96 Room Air 05/05/19 16:50 2.0 Allergies Coded Allergies: amitriptyline (Verified Adverse Reaction, Unknown, SOB, 04/21/19) Home Medications Scheduled Allopurinol (Zyloprim) 300 Mg Tablet, 300 MG PO BID, (Reported) Ergocalciferol (Vitamin D2) (Vitamin D2) 50,000 Unit Capsule, 50,000 UNIT PO QWEEK, (Reported) sunday Tizanidine HCl (Tizanidine HCl) 4 Mg Tablet, 4 MG PO DAILY, (Reported) Tizanidine HCl (Tizanidine HCl) 4 Mg Capsule, 8 MG PO QHS, (Reported) Scheduled PRN Colchicine (Colchicine) 0.6 Mg Tablet, 0.6 MG PO PRN PRN for PAIN, (Reported) Oxycodone HCl/Acetaminophen (Oxycodone-Acetaminophen 10-325) 1 Each Tablet, 1 TAB PO PRN PRN for PAIN, (Reported) Tramadol HCl (Tramadol HCl) 50 Mg Tablet, 50 MG PO PRN PRN for PAIN, (Reported) BHAKTI CATES MD May 05, 2019 17:53
[2019-05-05] MEDS ORDERED: ceFAZolin SOD 1 GM in D5W MINI-BAG PLUS 50 ML IV ONE (18:00)
[2019-05-05] MEDS ORDERED: ACETAMINOPHEN 500 MG TAB PO PRN (18:15)
[2019-05-05] MEDS: ALLOPURINOL 300 MG TAB PO SCH (20:48)
[2019-05-05] MEDS ORDERED: tiZANidine 4 MG TAB PO SCH (21:00)
[2019-05-06] VITALS: BP 102/62; O2SAT 95
[2019-05-06] MEDS ORDERED: ceFAZolin SOD 1 GM in D5W MINI-BAG PLUS 50 ML IV ONE (02:00)
[2019-05-06 04:00] VITALS: BP 107/57; O2SAT 94
[2019-05-06 07:07] LABS: HEMATOCRIT 44.8 % (42.0-52.0); HEMOGLOBIN 15.2 g/dl (13.5-17.5); MEAN CORPUSCULAR HEMOGLOBIN 29.5 pg (27.0-33.0); MEAN CORPUSCULAR HGB CONC 33.9 g/dl (32.0-36.5); MEAN CORPUSCULAR VOLUME 86.8 fl (80.0-96.0); PLATELET COUNT, AUTOMATED 235 10^3/uL (150-450); RED BLOOD COUNT 5.16 10^6/uL (4.30-6.10); WHITE BLOOD COUNT 10.7 10^3/uL (4.0-10.0)
[2019-05-06 07:34] LABS: BLOOD UREA NITROGEN 9 MG/DL (7-18); CARBON DIOXIDE LEVEL 29 MEQ/L (21-32); CHLORIDE LEVEL 106 MEQ/L (98-107); CREATININE FOR GFR 1.12 MG/DL (0.70-1.30); GLOMERULAR FILTRATION RATE > 60.0 (>60); GLUCOSE, FASTING 101 MG/DL (70-100); PHOSPHORUS LEVEL 3.9 MG/DL (2.5-4.9); SODIUM LEVEL 140 MEQ/L (136-145)
[2019-05-06 08:00] VITALS: BP 127/69
[2019-05-06] MEDS: ALLOPURINOL 300 MG TAB PO SCH (09:09)
[2019-05-06] MEDS: oxyCODONE 5MG TAB PO PRN (09:22)
--- NOTE | 2019-05-13 13:30 | RO ---
DATE OF PROCEDURE: 05/05/2019 PREPROCEDURE DIAGNOSIS: Lumbar postlaminectomy pain syndrome. POSTPROCEDURE DIAGNOSIS: Lumbar postlaminectomy pain syndrome. PROCEDURE: Spinal column stimulator implant. SURGEON: Dr. Anatoly Thomas DESTINATION COORDINATOR: ANESTHESIA: Local with monitored anesthesia care. Mr. Padgett is a 33-year-old male patient with a history of chronic low back and leg pain. The patient has had multiple back operations. He is in the operating room today for a spinal column stimulator implant. We did a trial. The patient reported more than 80% pain relief with the trial. The patient expressed that he wants to move forward with the implant after discussing the risks, alternatives and benefits. PROCEDURE NOTE: After consent, the patient was brought to the procedure room and placed in the prone position. The thoracolumbar area and cleaned with Betadine solution and draped aseptically. Procedure was done under sterile conditions. Target was selected at the intravertebral body of L2 and L3. Lidocaine 0.125% was used to numb the skin and the subcutaneous tissue below it. After the area was numb with the local anesthetic, I performed a vertical incision from L2 to L3 and started to expose the subcutaneous tissue and thoracolumbar fascia with the assistance of the Bovie to perform coagulation and then with a Esparza to expose the thoracolumbar fascia. After checking proper hemostasis and exposure of the thoracolumbar fascia, target was selected at the intralaminar level of T12-L1. Epimed Tuohy needle was used and with the loss of resistance technique, the right lamina of L1 was touched, and then by loss of resistant technique, the epidural space was reached 7 cm deep into the skin by the loss of resistance technique. Then an 8-contact lead from [email or web address] was advanced through the Tuohy needle and advanced to the level of T7-T8. Then a second Epimed Tuohy needle 17 gauge was advanced to the left lamina of L1. After the lamina was touched by the loss of resistance technique, the epidural space was reached 7 cm deep into the skin. Then a second contact lead from [email or web address] was advanced inside of this Tuohy needle until the posteromedial aspect of the epidural space and placed parallel to the first one. Extension cables were attached to the leads and the leads were attached to the computer system of [email or web address] and we started to give stimulation. The patient reports adequate coverage of the back and leg pain. The leads were placed at T7 and T8. AP and lateral views were done for future reference. Extension cables were removed. Stylets were removed. Sleeves were from [email or web address] work place in the leads. The sleeves were attached to the thoracolumbar fascia using the Fixate system from [email or web address]. After the sleeves were secured, I secured the leads to the sleeves using the screwdriver from [email or web address]. When the system was secured, I started to select the position of the battery at the right side of the patient, first using the model of the battery under x-ray and then I started to perform an incision, which was approximately 2 inches wide after using local anesthesia over the area. I created a battery depth approximately 2 cm. I created a pocket for the battery. I checked for hemostasis. After that was done, I created a tunnel between the midline incision and the battery incision and after passing the device from [email or web address], I attached the leads to the battery site. Then I attached the leads to the battery. I put the battery inside and the system was working well. I then screwed the leads to the battery and again checked for impedance. The system was working well. I put the battery inside of the pocket. I cleaned both incisions, checked for hemostasis, and then I started to close both incisions, first with 0 Vicryl and then with 3-0 Vicryl. Finally, I closed the skin with Dermabond surgical glue. The internal stitches were inverted. There was good hemostasis. The patient was sent to the recovery room. He was moving his extremities and doing well. Before the procedure was started, the patient received cefazolin 1 gram IV. There were no complications.
== END 2019-05-06 10:15 | disposition home or self-care (01) ==
LOC: M SDC 07:05 → M PED 15:26 → M SDC 05-06 10:15
PROVIDERS: ATTEND Anesthesiology
DX: M96.1 Postlaminectomy syndrome, not elsewhere classified (principal); K21.9 Gastro-esophageal reflux disease without esophagitis; M10.9 Gout, unspecified; M87.08 Idiopathic aseptic necrosis of bone, other site; F43.10 Post-traumatic stress disorder, unspecified; G47.33 Obstructive sleep apnea (adult) (pediatric); R06.83 Snoring; Z88.8 Allergy status to other drugs, medicaments and biological substances; Z79.899 Other long term (current) drug therapy; Z87.442 Personal history of urinary calculi; Z68.36 Body mass index [BMI] 36.0-36.9, adult; Z96.641 Presence of right artificial hip joint
CPT/HCPCS: 36415; 63655; 63685; 76000; 80048; 83735; 84100; 85027; C1778; C1820; J0690; J1170; J2250; J2270; J2405; J3010; L8699

== ENCOUNTER → 2019-05-19 | Outpatient (CLI) | payer OTHER, MEDICARE ==
[~2019-05-19] MED LIST changes: -LR 1,000 ML IV ONE; -ceFAZolin SOD 1 GM in D5W MINI-BAG PLUS 50 ML IV ONE
--- NOTE | 2019-06-04 03:46 | ECWPNPC ---
PATIENT NAME: ISADORA MOLINA : 1985 GENDER: MALE VISIT DATE: 05/19/2019 DISCHARGE DATE: 05/19/19 1518 VISIT LOCKED DATE TIME: PHYSICIAN: SHE GONSALVES MD RESOURCE: SHE GONSALVES MD REASON FOR APPOINTMENT 1. DCS HISTORY OF PRESENT ILLNESS HISTORY OF PRESENT ILLNESS: PAIN THE PATIENT DESCRIBES THE PAIN... 33 YEAR OLD MALE PATIENT WITH A HISTORY OF CHRONIC LOW BACK AND LEG PAIN. THE PATIENT DESCRIBES THE PAIN ACHING, SORE, TENDER, AND SHARP WITH A PAIN SCORE OF 2-8/10 DEPENDING ON PHYSICAL ACTIVITY. THE PATIENT STATES HIS PAIN BEGINS HIS LOW BACK AND RADIATES DOWN MAINLY HIS RIGHT LEG. THE PATIENT RECEIVED A DCS IMPLANT AROUND 2 WEEKS AGO, THAT HE REPORTS IS PROVIDING HIM WITH ADEQUATE PAIN RELIEF. THE PATIENT SAYS HE HAS STOPPED USING HIS PAIN MEDICATIONS SINCE RECEIVING THE IMPLANT AND IT IS NOW WORKING FOR HIM. PATIENT DENIES UNEXPLAINABLE WEIGHT LOSS, FEVER, CHILLS, NEW CHANGES ON HIS URINARY OR BOWEL CONTROL. FALL RISK SCREENING: SCREENING :NO FALLS REPORTED IN THE LAST YEAR CURRENT MEDICATIONS TAKING ALLOPURINOL 300 MG TABLET 2 TABLET ORALLY ONCE A DAY TAKING COLCHICINE 0.6 MG TABLET ONE TAB ORALLY EVERY 12 HOURS PRN PAIN TAKING VITAMIN D (ERGOCALCIFEROL) 22515 UNIT CAPSULE 1 CAPSULE ORALLY WEEKLY NOT-TAKING TRAMADOL HCL 50 MG TABLET 1 -2 TABLETS ORALLY EVERY 6 HRS PRN PAIN MDD=3 NOT-TAKING PERCOCET 10-325 MG TABLET 1 TABLET NEEDED ORALLY BID NOT-TAKING TIZANIDINE HCL 4 MG TABLET 1 TABLET NEEDED ORALLY TAKE 1 IN AM AND 2 AT BEDTIME DISCONTINUED AMITRIPTYLINE HCL 25 MG TABLET 1 TO 2 TAB ORALLY BEFORE BEDTIME DISCONTINUED TRAMADOL HCL 50 MG TABLET 1 -2 TABLET NEEDED ORALLY Q 8SRS PRN PAIN MDD=3, NOTES: DUPLICATE MEDICATION LIST REVIEWED AND RECONCILED WITH THE PATIENT PAST MEDICAL HISTORY CHRONIC LOW BACK PAIN GOUT SLEEP APNEA WITH CPAP REFLUX PTSD HIP PAIN AVASCULAR NECROSIS BILAT HIPS DX 03/2018 KIDNEY STONE ALLERGIES AMITRIPTYLINE: DYSPNEA SURGICAL HISTORY SPINAL FUSION X 2 2017 TOTAL RIGHT HIP 05/2018 DCS TRIAL 02/2019 PERMANENT DCS 04/2019 FAMILY HISTORY FATHER: ALIVE, DIAGNOSED WITH HYPERTENSION MOTHER: ALIVE, HYPERTENSION PATERNAL GRAND FATHER: OTHER MALIGNANT NEOPLASM OF UNSPECIFIED SITE MATERNAL GRAND FATHER: UNSPECIFIED HEART DISEASE MATERNAL GRAND MOTHER: DIABETES 1 BROTHER(S) , 1 SISTER(S) - HEALTHY. 1 SON(S) - HEALTHY. GRANDFATHER - PROSTATE CANCER. SOCIAL HISTORY GENERAL: TOBACCO USE ARE YOU A:NONSMOKER ADDITIONAL FINDINGS: TOBACCO USER QUIT CHEWING 4 MONTHS AGO OTHERS AT HOME: SPOUSE, CHILD. DIET: REGULAR. LANGUAGE LANGUAGES SPOKEN:GUYANESE DOMESTIC VIOLENCE DO YOU FEEL SAFE IN YOUR ENVIRONMENT?YES RECREATIONAL DRUG USE DRUG USE?NO EXERCISE: NO REGULAR EXERCISE. LEARNING BARRIERS / SPECIAL NEEDS BARRIERS TO LEARNING?NO HEARING IMPAIRED?NO VISION IMPAIRED?NO COGNITIVELY IMPAIRED?NO READINESS TO LEARN?YES LEARNING PREFERENCES?NO LEARNING CAPABILITIES PRESENT?YES EMOTIONAL BARRIERS?NO SPECIAL DEVICES?YES :CANE TRAFFIC COURT REFEREE NEEDED?NO PAIN CLINIC PFS, CLERGY, PUBLIC HEALTH REFERRALS PFS REFERRAL NEEDED?NO CLERGY REFERRAL NEEDED?NO PUBLIC HEALTH REFERRAL NEEDED?NO WAS THE PROVIDER NOTIFIED OF ANY PERTINENT INFO? N/A HAS THE PATIENT BEEN EDUCATED REGARDING HIS/HER PLAN OF CARE?YES HAS THE PATIENT BEEN EDUCATED REGARDING PAIN, THE RISK FOR PAIN, THE IMPORTANCE OF EFFECTIVE PAIN MANAGEMENT, AND THE PAIN ASSESSMENT PROCESS?YES LATEX QUESTIONNAIRE LATEX ALLERGY : HAVE YOU EVER DEVELOPED ANY TYPE OF REACTION AFTER HANDLING LATEX PRODUCTS SUCH RUBBER GLOVES, CONDOMS, DIAPHRAGMS, BALLOONS, SOCKS, OR UNDERWEAR?NO LATEX ALLERGY : HAVE YOU EVER DEVELOPED ANY TYPE OF REACTION DURING OR AFTER DENTAL APPOINTMENT, VAGINAL/RECTAL EXAMINATION, SURGICAL PROCEDURE, OR ANY OTHER EXPOSURE?NO LATEX RISK : HAVE YOU EVER HAD ANY DIFFICULTY BREATHING OR HIVES AFTER EATING OR HANDLING ANY FRUITS, OR VEGETABLES; SUCH KIWI, BANANAS, STONE FRUITS, OR CHESTNUTSNO LATEX RISK : DO YOU HAVE A PREVIOUS PERSONAL HISTORY OF MORE THAN NINE SURGERIES, SPINA BIFIDA, OR REPEATED CATHERIZATIONS? NO LATEX RISK : ARE YOU FREQUENTLY EXPOSED TO LATEX PRODUCTS IN YOUR OCCUPATION?NO DATE ASKED : 05/19/2019 CAFFEINE CAFFEINE USE?YES HOW OFTEN AND HOW MUCH? SUZANNE ADVANCE DIRECTIVE ADVANCE DIRECTIVE DISCUSSED WITH PATIENT:YES 05/19/19 PT HAS NO ADVANCED DIRECTIVES, DECLINES INFORMATION ON HCP AT THIS TIME. AD LATTER-DAY [id number] NONE MARITAL STATUS: . ALCOHOL SCREENING DID YOU HAVE A DRINK CONTAINING ALCOHOL IN THE PAST YEAR?YES HOW OFTEN DID YOU HAVE A DRINK CONTAINING ALCOHOL IN THE PAST YEAR?MONTHLY OR LESS (1 POINT) POINTS1 INTERPRETATIONNEGATIVE OCCUPATION: DISABLED. REVIEWED WITH PT 02/18/18 0880 LASREVIEWED WITH PATIENT 04/18/18 1009 JSREVIEWED WITH PATIENT 05/31/18 1523 JSREVIEWED WITH PT 09/16/18 0947 BVREVIEWED WITH PATIENT 09/19/18 0906 JSREVIEWED WITH PATIENT 10/03/18 1046 JSREVIEWED WITH PT 11/05/18 1515 BVREVIEWED WITH PATIENT 10/22/18 1522 JSREVIEWED WITH PATIENT 11/29/18 0956 JSREVIEWED WITH PATIENT 01/10/19 1527 JSREVIEWED WITH PATIENT 04/18/19 0910 BV. HOSPITALIZATION/MAJOR DIAGNOSTIC PROCEDURE SEE ABOVE REVIEW OF SYSTEMS REVIEWED BY: PROVIDER: SHE GONSALVES MD . CONSTITUTIONAL: ANY CHANGE IN YOUR MEDICAL CONDITION? NO . CHILLS NO . FEVER NO . INFECTION: DO YOU HAVE NEW INFECTIONS? NO . DO YOU HAVE HISTORY OF MRSA? NO . MUSCULOSKELETAL: ANY NEW PATTERNS OF PAIN OR NUMBNESS? YES, PAIN IS ALMOST GONE . GASTROENTEROLOGY: ANY NEW CHANGE IN BOWEL CONTROL? NO . GENITOURINARY: ANY NEW CHANGE IN BLADDER CONTROL? NO . IS THERE A CHANCE YOU COULD BE ? NO . HEMATOLOGY/LYMPH: DO YOU TAKE ANY BLOOD THINNERS? (FOR EXAMPLE- COUMADIN, PLAVIX, AGGRENOX, PLATEL, PRADAXA, OR XARELTO) NO . WHEN WAS YOUR LAST DOSE? DATE: TIME: . NEUROLOGY: HAVE YOU FALLEN IN THE PAST 12 MONTHS? NO . ANY NEW EXTREMITY NUMBNESS OR WEAKNESS? NO . CARDIOLOGY: DO YOU HAVE A PACEMAKER OR DEFIBRILLATOR? YES, DCS . RESPIRATORY: HAVE YOU BEEN SICK IN THE PAST WEEK? YES URI X 3 DAYS . FEVER NO . FLU LIKE SYMPTOMS? NO . COUGH YES, OCC. RAISING YELLOW MUCUS . INTEGUMENTARY: DO YOU HAVE ANY RASHES OR OPEN SORES? NO . ALLERGIC/IMMUNO: ARE YOU ALLERGIC TO IV DYE? NO . ANY NEW ALLERGIES? NO . PSYCHIATRIC: DO YOU HAVE THOUGHTS OF HURTING YOURSELF OR SOMEONE ELSE? NO . ARE YOU ABUSED, NEGLECTED, OR IN AN UNSAFE ENVIRONMENT? NO . ENDOCRINOLOGY: ARE YOU DIABETIC? NO . OTHER: DO YOU NEED ANY PRESCRIPTIONS? NO . IF YES, PLEASE LIST: ____ . ANY NEW PROBLEMS WITH YOUR MEDICATIONS? NO . WHEN DID YOU LAST EAT? ____ . WHEN DID YOU LAST DRINK? ____ . WHAT DID YOU LAST DRINK? ____ . NAME OF PERSON DRIVING YOU HOME? ____ . DO YOU HAVE ANY OTHER QUESTIONS OR CONCERNS NO [facility] FROM [employer] HERE TO ADJUST DCS . VITAL SIGNS WT 230.4 LBS, HT 67 IN, BMI 36.08 INDEX, BP 144/89 MM HG, HR 97 /MIN, RR 18 /MIN, TEMP 98.4 F, OXYGEN SAT % 95%, SAFE IN ENV? (Y/N) Y, NA INITIALS SC 13:59, REVIEWED BY: TOBIAS. EXAMINATION GENERAL EXAMINATION: PATIENT IS ALERT O X 3 AND COOPERATIVE. SURGICAL WOUND IS HEALING VERY WELL. NO EVIDENCE OF INFECTION. PATIENT IS ABLE TO MOVE AROUND AND WALK WITHOUT MUCH PAIN. ASSESSMENTS POST LAMINECTOMY SYNDROME - M96.1 (PRIMARY) TREATMENT POST LAMINECTOMY SYNDROME CONTINUE TRAMADOL HCL TABLET, 50 MG, 1 TABLETS, ORALLY, EVERY 6 HRS PRN PAIN MDD=2, 30 DAYS, 45, REFILLS 0 CONTINUE TIZANIDINE HCL TABLET, 4 MG, 1 TABLET NEEDED, ORALLY FOR SPASMS AND PAIN, AT BEDTIME MAY REPEAT IN 5 HRS MDD2, 30 DAYS, 60, REFILLS 1 CLINICAL NOTES: WE DISCUSSED SEVERAL ISSUES WITH MR. MOLINA'S PAIN MANAGEMENT CASE. THE PATIENT IS DOING VERY WELL NOW AND HE IS HAPPY WITH HIS DCS IMPLANT. THE PATIENT WILL FOLLOWUP WITH THE NURSE PRACTITIONER IN 1 MONTH TO SEE HOW HE IS DOING WITH THE IMPLANT. THE PATIENT IS ADVISED TO CALL OR BE SEEN IN THE ER IF ANY REACTIONS OR INFECTIONS OCCURS. THE PATIENT WILL CONTINUE WITH TRAMADOL 50 MG AND TIZANIDINE 4 MG TO HELP WITH HIS PAIN AND SPASMS, WHICH I REFILLED FOR HIM AT TODAY'S VISIT. ISTOP # [id number] WAS REVIEWED. INSTRUCTIONS WERE GIVEN, QUESTIONS WERE ANSWERED, PATIENT REPORTS UNDERSTANDING AND AGREES WITH THE PLAN. I, JACOB CESPEDES, DOCUMENTED THE ABOVE INFORMATION ACTING A SCRIBE FOR DR. GONSALVES. I HAVE REVIEWED THE ABOVE DOCUMENT, WRITTEN BY JACOB HENNING AND I VERIFY THAT IT IS ACCURATE. . DISPOSITION & COMMUNICATION FOLLOW UP 4 WEEKS (REASON: F/UP WITH TIMEKEEPING SUPERVISOR FOR DCS IMPLANT PROGRESS) ELECTRONICALLY SIGNED BY SHE GONSALVES MD, MD ON 06/03/2019 AT 07:54 PM EST DISCLAIMER : THIS IS A VISIT SUMMARY EXTRACTED FROM THE [employer] CHART. IT IS NOT A COPY OF THE [employer] PROGRESS NOTE. MTDD
== END ==
LOC: M PAIN 14:00
PROVIDERS: ATTEND Anesthesiology
DX: M96.1 Postlaminectomy syndrome, not elsewhere classified (principal); G47.30 Sleep apnea, unspecified; Z86.59 Personal history of other mental and behavioral disorders; Z96.641 Presence of right artificial hip joint; Z87.891 Personal history of nicotine dependence; Z88.8 Allergy status to other drugs, medicaments and biological substances; Z96.89 Presence of other specified functional implants; Z79.899 Other long term (current) drug therapy

== ENCOUNTER → 2019-06-13 | Outpatient (CLI) | payer OTHER, MEDICARE ==
--- NOTE | 2019-06-28 01:52 | ECWPNPC ---
PATIENT NAME: ISADORA MOLINA : 1985 GENDER: MALE VISIT DATE: 06/13/2019 DISCHARGE DATE: 06/13/19 0943 VISIT LOCKED DATE TIME: PHYSICIAN: NICCI BALBUENA RESOURCE: NICCI BALBUENA REASON FOR APPOINTMENT 1. [address] Hay HISTORY OF PRESENT ILLNESS HISTORY OF PRESENT ILLNESS: HERE TODAY FOR F/U OF CHRONIC LBP AND BILAT.LEG PAIN S/P DCS PLACEMENT 1 MONTH AGO.HE IS VERY HAPPY WITH DCS.STATES HE RARELY USES TIZANIDINE OR TRAMADOL FOR LOW BACK PAIN.HE IS USING MEDICATION MAINLY FOR RIGHT HIP PAIN.RATING PAIN VAS 2/10.HISTORY OF RIGHT HIP REPLACEMENT 1 YEAR AGO. PAIN THE PATIENT DESCRIBES THE PAIN... FALL RISK SCREENING: SCREENING :NO FALLS REPORTED IN THE LAST YEAR CURRENT MEDICATIONS TAKING ALLOPURINOL 300 MG TABLET 2 TABLET ORALLY ONCE A DAY TAKING COLCHICINE 0.6 MG TABLET ONE TAB ORALLY EVERY 12 HOURS PRN PAIN TAKING VITAMIN D (ERGOCALCIFEROL) 67943 UNIT CAPSULE 1 CAPSULE ORALLY WEEKLY TAKING TRAMADOL HCL 50 MG TABLET 1 TABLETS ORALLY EVERY 6 HRS PRN PAIN MDD=2 TAKING TIZANIDINE HCL 4 MG TABLET 1 TABLET NEEDED ORALLY FOR SPASMS AND PAIN AT BEDTIME MAY REPEAT IN 5 HRS MDD2 NOT-TAKING PERCOCET 10-325 MG TABLET 1 TABLET NEEDED ORALLY BID MEDICATION LIST REVIEWED AND RECONCILED WITH THE PATIENT PAST MEDICAL HISTORY CHRONIC LOW BACK PAIN GOUT SLEEP APNEA WITH CPAP REFLUX PTSD HIP PAIN AVASCULAR NECROSIS BILAT HIPS DX 03/2018 KIDNEY STONE ALLERGIES AMITRIPTYLINE: DYSPNEA SURGICAL HISTORY SPINAL FUSION X 2 2017 TOTAL RIGHT HIP 05/2018 DCS TRIAL 02/2019 PERMANENT DCS 04/2019 FAMILY HISTORY FATHER: ALIVE, DIAGNOSED WITH HYPERTENSION MOTHER: ALIVE, HYPERTENSION PATERNAL GRAND FATHER: OTHER MALIGNANT NEOPLASM OF UNSPECIFIED SITE MATERNAL GRAND FATHER: UNSPECIFIED HEART DISEASE MATERNAL GRAND MOTHER: DIABETES 1 BROTHER(S) , 1 SISTER(S) - HEALTHY. 1 SON(S) - HEALTHY. GRANDFATHER - PROSTATE CANCER. HOSPITALIZATION/MAJOR DIAGNOSTIC PROCEDURE SEE ABOVE REVIEW OF SYSTEMS REVIEWED BY: PROVIDER: NICCI JOY . CONSTITUTIONAL: ANY CHANGE IN YOUR MEDICAL CONDITION? NO . CHILLS NO . FEVER NO . INFECTION: DO YOU HAVE NEW INFECTIONS? COLD SINUS . DO YOU HAVE HISTORY OF MRSA? NO . MUSCULOSKELETAL: ANY NEW PATTERNS OF PAIN OR NUMBNESS? YES A COUPLE TIMES SHOOTING PAIN DOWN FRO=NT OF RIGHT LEG . GASTROENTEROLOGY: ANY NEW CHANGE IN BOWEL CONTROL? NO . GENITOURINARY: ANY NEW CHANGE IN BLADDER CONTROL? NO . IS THERE A CHANCE YOU COULD BE ? NO . HEMATOLOGY/LYMPH: DO YOU TAKE ANY BLOOD THINNERS? (FOR EXAMPLE- COUMADIN, PLAVIX, AGGRENOX, PLATEL, PRADAXA, OR XARELTO) NO . WHEN WAS YOUR LAST DOSE? DATE: TIME: . NEUROLOGY: HAVE YOU FALLEN IN THE PAST 12 MONTHS? NO . ANY NEW EXTREMITY NUMBNESS OR WEAKNESS? NO . CARDIOLOGY: DO YOU HAVE A PACEMAKER OR DEFIBRILLATOR? DCS . RESPIRATORY: HAVE YOU BEEN SICK IN THE PAST WEEK? NO . FEVER NO . FLU LIKE SYMPTOMS? NO . COUGH NO . INTEGUMENTARY: DO YOU HAVE ANY RASHES OR OPEN SORES? NO . ALLERGIC/IMMUNO: ARE YOU ALLERGIC TO IV DYE? NO . ANY NEW ALLERGIES? NO . PSYCHIATRIC: DO YOU HAVE THOUGHTS OF HURTING YOURSELF OR SOMEONE ELSE? NO . ARE YOU ABUSED, NEGLECTED, OR IN AN UNSAFE ENVIRONMENT? NO . ENDOCRINOLOGY: ARE YOU DIABETIC? NO . OTHER: DO YOU NEED ANY PRESCRIPTIONS? NO . IF YES, PLEASE LIST: ____ . ANY NEW PROBLEMS WITH YOUR MEDICATIONS? NO . WHEN DID YOU LAST EAT? ____ . WHEN DID YOU LAST DRINK? ____ . WHAT DID YOU LAST DRINK? ____ . NAME OF PERSON DRIVING YOU HOME? ____ . DO YOU HAVE ANY OTHER QUESTIONS OR CONCERNS NO . VITAL SIGNS WT 234.4 LBS, HT 67 IN, BMI 36.71 INDEX, BP 108/66 MM HG, HR 98 /MIN, RR 18 /MIN, TEMP 97.8 F, OXYGEN SAT % 96%, NA INITIALS SC 09:24. EXAMINATION GENERAL EXAMINATION: GENERAL AWAKE,ALERT ,PLEAASANT . PSYCH AFFECT NORMAL . LUNGS: LUNG ALEMAN ARE CLEAR TO AUSCULTATION BILATERALLY. GOOD MOVEMENT OF AIR . HEART: S1, S2 IN A REGULAR RATE AND RHYTHM. NO SIGNIFICANT MURMURS, RUBS OR GALLOPS NOTED . MUSCULOSKELETAL: WELL HEALED SURGICAL SCARS OVER LOWER THORACIC AND RIGHT LUMBAR PARASPINAL. ASSESSMENTS POST LAMINECTOMY SYNDROME - M96.1 (PRIMARY) TREATMENT POST LAMINECTOMY SYNDROME CONTINUE TRAMADOL HCL TABLET, 50 MG, 1 TABLETS, ORALLY, EVERY 6 HRS PRN PAIN MDD=2 CONTINUE TIZANIDINE HCL TABLET, 4 MG, 1 TABLET NEEDED, ORALLY FOR SPASMS AND PAIN, AT BEDTIME MAY REPEAT IN 5 HRS MDD2 NOTES: CONTINUE DCS .CALL WITH ANY PROBLEMS. PROCEDURE CODES FA211 ESTABIL[address] PATIENT [facility] FAC[facility] CHARGE DISPOSITION & COMMUNICATION FOLLOW UP 2 MONTHS (REASON: DCS F/U) ELECTRONICALLY SIGNED BY BENITA HOOKER ON 06/27/2019 AT 02:35 PM EST DISCLAIMER : THIS IS A VISIT SUMMARY EXTRACTED FROM THE [employer] CHART. IT IS NOT A COPY OF THE [employer] PROGRESS NOTE. MTDD
== END ==
LOC: M PAIN 09:00
PROVIDERS: ATTEND Nurse Practitioner Family
DX: M96.1 Postlaminectomy syndrome, not elsewhere classified (principal)

== ENCOUNTER → 2019-08-14 | Outpatient (CLI) | payer OTHER, MEDICARE ==
--- NOTE | 2019-09-02 04:53 | ECWPNPC ---
PATIENT NAME: ISADORA MOLINA : 1985 GENDER: MALE VISIT DATE: 08/14/2019 DISCHARGE DATE: 08/14/19 0956 VISIT LOCKED DATE TIME: PHYSICIAN: NICCI BALBUENA RESOURCE: NICCI BALBUENA REASON FOR APPOINTMENT 1. LOW BACK/HIP HISTORY OF PRESENT ILLNESS HISTORY OF PRESENT ILLNESS: HERE FOR FOLLOW-UP OF PERSISTENT LOW BACK PAIN AND RIGHT LEG PAIN. HE IS STATUS POST DORSAL COLUMN STIMULATOR IN APRIL. OVER THE PAST MONTH HE'S BEEN EXPERIENCING MORE RIGHT HIP PAIN WITH RADIATION INTO THE RIGHT BUTTOCK AND LATERAL THIGH. THIS IS A NEW AREA OF PAIN. DENIES INJURY. HISTORY OF AVASCULAR NECROSIS RIGHT HIP. HE IS STATUS POST HIP REPLACEMENT, RIGHT SIDE. OVERALL, HE FEELS DORSAL COLUMN STIMULATOR IS HELPING WITH HIS PERSISTENT LOW BACK AND RIGHT GROIN AND ANTERIOR LEG PAIN, BUT HAS BEEN WORKING WITH CHINMAY FROM [employer] TO DO ADJUSTMENTS TO HELP CAPTURE NEW AREA OF PAIN. THIS IS NOT WORKING SO WELL. HE WILL BE IN TOUCH WITH CHINMAY. CURRENTLY USING TRAMADOL AND TIZANIDINE NEEDED FOR SEVERE PAIN EPISODES. HE IS USING THIS ABOUT TWICE A DAY. SOMETIMES THIS IS HELPFUL, BUT MOST OF THE TIME HE FEELS LIKE IT IS NOT HELPFUL. DISCUSSED MEDICATION OPTIONS. RATING PAIN LEVEL 4-9/10 VAS. PAIN THE PATIENT DESCRIBES THE PAIN... FALL RISK SCREENING: SCREENING :NO FALLS REPORTED IN THE LAST YEAR CURRENT MEDICATIONS TAKING ALLOPURINOL 300 MG TABLET 2 TABLET ORALLY ONCE A DAY TAKING COLCHICINE 0.6 MG TABLET ONE TAB ORALLY EVERY 12 HOURS PRN PAIN TAKING VITAMIN D (ERGOCALCIFEROL) 03253 UNIT CAPSULE 1 CAPSULE ORALLY WEEKLY TAKING TRAMADOL HCL 50 MG TABLET 1 TABLET NEEDED ORALLY Q8H PRN MDD3 TAKING TIZANIDINE HCL 4 MG TABLET 1 TABLET NEEDED ORALLY FOR SPASMS AND PAIN AT BEDTIME MAY REPEAT IN 5 HRS MDD2 NOT-TAKING PERCOCET 10-325 MG TABLET 1 TABLET NEEDED ORALLY BID MEDICATION LIST REVIEWED AND RECONCILED WITH THE PATIENT PAST MEDICAL HISTORY CHRONIC LOW BACK PAIN GOUT SLEEP APNEA WITH CPAP REFLUX PTSD HIP PAIN -BILATERAL AVASCULAR NECROSIS BILAT HIPS DX 03/2018 KIDNEY STONE ALLERGIES AMITRIPTYLINE: DYSPNEA SURGICAL HISTORY SPINAL FUSION X 2 2017 TOTAL RIGHT HIP 05/2018 DCS TRIAL 02/2019 PERMANENT DCS 04/2019 FAMILY HISTORY FATHER: ALIVE, DIAGNOSED WITH HYPERTENSION MOTHER: ALIVE, HYPERTENSION PATERNAL GRAND FATHER: OTHER MALIGNANT NEOPLASM OF UNSPECIFIED SITE MATERNAL GRAND FATHER: UNSPECIFIED HEART DISEASE MATERNAL GRAND MOTHER: DIABETES 1 BROTHER(S) , 1 SISTER(S) - HEALTHY. 1 SON(S) - HEALTHY. GRANDFATHER - PROSTATE CANCER. SOCIAL HISTORY GENERAL: TOBACCO USE ARE YOU A:NONSMOKER ADDITIONAL FINDINGS: TOBACCO USERCHEWS TOBACCO ALL DAY OTHERS AT HOME: SPOUSE, CHILD. EDUCATION LEVEL OF EDUCATION:COLLEGE DIET: REGULAR. LANGUAGE LANGUAGES SPOKEN:FRENCH DOMESTIC VIOLENCE DO YOU FEEL SAFE IN YOUR ENVIRONMENT?YES RECREATIONAL DRUG USE DRUG USE?NO EXERCISE: NO REGULAR EXERCISE. LEARNING BARRIERS / SPECIAL NEEDS BARRIERS TO LEARNING?NO HEARING IMPAIRED?NO VISION IMPAIRED?NO COGNITIVELY IMPAIRED?NO READINESS TO LEARN?YES LEARNING PREFERENCES?NO LEARNING CAPABILITIES PRESENT?YES EMOTIONAL BARRIERS?NO SPECIAL DEVICES?NO MATERIALS MANAGEMENT SUPERVISOR NEEDED?NO PAIN CLINIC PFS, CLERGY, PUBLIC HEALTH REFERRALS PFS REFERRAL NEEDED?NO CLERGY REFERRAL NEEDED?NO PUBLIC HEALTH REFERRAL NEEDED?NO HAS THE PATIENT BEEN EDUCATED REGARDING HIS/HER PLAN OF CARE?YES HAS THE PATIENT BEEN EDUCATED REGARDING PAIN, THE RISK FOR PAIN, THE IMPORTANCE OF EFFECTIVE PAIN MANAGEMENT, AND THE PAIN ASSESSMENT PROCESS?YES LATEX QUESTIONNAIRE LATEX ALLERGY : HAVE YOU EVER DEVELOPED ANY TYPE OF REACTION AFTER HANDLING LATEX PRODUCTS SUCH RUBBER GLOVES, CONDOMS, DIAPHRAGMS, BALLOONS, SOCKS, OR UNDERWEAR?NO LATEX ALLERGY : HAVE YOU EVER DEVELOPED ANY TYPE OF REACTION DURING OR AFTER DENTAL APPOINTMENT, VAGINAL/RECTAL EXAMINATION, SURGICAL PROCEDURE, OR ANY OTHER EXPOSURE?NO LATEX RISK : HAVE YOU EVER HAD ANY DIFFICULTY BREATHING OR HIVES AFTER EATING OR HANDLING ANY FRUITS, OR VEGETABLES; SUCH KIWI, BANANAS, STONE FRUITS, OR CHESTNUTSNO LATEX RISK : DO YOU HAVE A PREVIOUS PERSONAL HISTORY OF MORE THAN NINE SURGERIES, SPINA BIFIDA, OR REPEATED CATHERIZATIONS? NO LATEX RISK : ARE YOU FREQUENTLY EXPOSED TO LATEX PRODUCTS IN YOUR OCCUPATION?NO DATE ASKED : 08/14/2019 CAFFEINE CAFFEINE USE?YES HOW OFTEN AND HOW MUCH? SUZANNE ADVANCE DIRECTIVE ADVANCE DIRECTIVE DISCUSSED WITH PATIENT:YES 08/14/2019 PT DOES NOT HAVE ANY ADVANCED DIRECTIVES, DECLINES INFORMATION ON HCP AT THIS TIME. AD [facility] [id number] NONE MARITAL STATUS: . ALCOHOL SCREENING DID YOU HAVE A DRINK CONTAINING ALCOHOL IN THE PAST YEAR?YES HOW OFTEN DID YOU HAVE A DRINK CONTAINING ALCOHOL IN THE PAST YEAR?MONTHLY OR LESS (1 POINT) POINTS1 INTERPRETATIONNEGATIVE OCCUPATION: DISABLED. REVIEWED WITH PT 8/27/18 2445 LASREVIEWED WITH PATIENT 04/18/18 1009 JSREVIEWED WITH PATIENT 05/31/18 1523 JSREVIEWED WITH PT 09/16/18 0947 BVREVIEWED WITH PATIENT 09/19/18 0906 JSREVIEWED WITH PATIENT 10/03/18 1046 JSREVIEWED WITH PT 11/05/18 1515 BVREVIEWED WITH PATIENT 10/22/18 1522 JSREVIEWED WITH PATIENT 11/29/18 0956 JSREVIEWED WITH PATIENT 01/10/19 1527 JSREVIEWED WITH PATIENT 04/18/19 0910 BV. HOSPITALIZATION/MAJOR DIAGNOSTIC PROCEDURE SEE ABOVE REVIEW OF SYSTEMS REVIEWED BY: PROVIDER: NICCI JOY . CONSTITUTIONAL: ANY CHANGE IN YOUR MEDICAL CONDITION? NO . CHILLS NO . FEVER NO . INFECTION: DO YOU HAVE NEW INFECTIONS? NO . DO YOU HAVE HISTORY OF MRSA? NO . MUSCULOSKELETAL: ANY NEW PATTERNS OF PAIN OR NUMBNESS? YES SHOOTING PAINS DOWN RIGHT HIP AND BUTT CHEEK THAT IS CONSTANT-THIS HAS BEEN FOR THE PAST 1 1/2 MONTHS. HE SAW HIS ORTHO SURG. WHO DIDN'T FEEL THIS WAS RELATED TO HIS HIP, . GASTROENTEROLOGY: ANY NEW CHANGE IN BOWEL CONTROL? NO . GENITOURINARY: ANY NEW CHANGE IN BLADDER CONTROL? NO . IS THERE A CHANCE YOU COULD BE ? NO . HEMATOLOGY/LYMPH: DO YOU TAKE ANY BLOOD THINNERS? (FOR EXAMPLE- COUMADIN, PLAVIX, AGGRENOX, PLATEL, PRADAXA, OR XARELTO) NO . WHEN WAS YOUR LAST DOSE? DATE: TIME: . NEUROLOGY: HAVE YOU FALLEN IN THE PAST 12 MONTHS? NO . ANY NEW EXTREMITY NUMBNESS OR WEAKNESS? NO . CARDIOLOGY: DO YOU HAVE A PACEMAKER OR DEFIBRILLATOR? NO HAS DCS . RESPIRATORY: HAVE YOU BEEN SICK IN THE PAST WEEK? NO . FEVER NO . FLU LIKE SYMPTOMS? NO . COUGH NO . INTEGUMENTARY: DO YOU HAVE ANY RASHES OR OPEN SORES? NO . ALLERGIC/IMMUNO: ARE YOU ALLERGIC TO IV DYE? NO . ANY NEW ALLERGIES? NO . PSYCHIATRIC: DO YOU HAVE THOUGHTS OF HURTING YOURSELF OR SOMEONE ELSE? NO . ARE YOU ABUSED, NEGLECTED, OR IN AN UNSAFE ENVIRONMENT? NO . ENDOCRINOLOGY: ARE YOU DIABETIC? NO . OTHER: DO YOU NEED ANY PRESCRIPTIONS? NO . IF YES, PLEASE LIST: ____ . ANY NEW PROBLEMS WITH YOUR MEDICATIONS? NO . WHEN DID YOU LAST EAT? ____ . WHEN DID YOU LAST DRINK? ____ . WHAT DID YOU LAST DRINK? ____ . NAME OF PERSON DRIVING YOU HOME? ____ . DO YOU HAVE ANY OTHER QUESTIONS OR CONCERNS NO WOULD LIKE TO DISCUSS MEDS-STATES TRAMADOL REALLY ISN'T HELPING MUCH ANY MORE. . VITAL SIGNS WT 238.2 LBS, HT 67 IN, BMI 37.30 INDEX, BP 152/92 MM HG, HR 98 /MIN, RR 18 /MIN, TEMP 97.7 F, OXYGEN SAT % 98%, SAFE IN ENV? (Y/N) Y, NA INITIALS AW 0850, REVIEWED BY: TOBIAS. EXAMINATION GENERAL EXAMINATION: GENERALAWAKE,ALERT ,PLEASANT . PSYCHAFFECT NORMAL . LUNGS:LUNG ALEMAN ARE CLEAR TO AUSCULTATION BILATERALLY. GOOD MOVEMENT OF AIR . HEART:S1, S2 IN A REGULAR RATE AND RHYTHM. NO SIGNIFICANT MURMURS, RUBS OR GALLOPS NOTED . ASSESSMENTS POST LAMINECTOMY SYNDROME - M96.1 (PRIMARY) CHRONIC PRESCRIPTION OPIATE USE - Z79.891 TREATMENT POST LAMINECTOMY SYNDROME CONTINUE TRAMADOL HCL TABLET, 50 MG, 1 TABLET NEEDED, ORALLY, Q8H PRN MDD3 CONTINUE TIZANIDINE HCL TABLET, 4 MG, 1 TABLET NEEDED, ORALLY FOR SPASMS AND PAIN, AT BEDTIME MAY REPEAT IN 5 HRS MDD2 START GABAPENTIN CAPSULE, 400 MG, 1 CAPSULE, ORALLY, BID, 30 DAY(S), 60 CAPSULE, REFILLS 2 NOTES: CONTINUE USING TIZANIDINE AND TRAMADOL NEEDED. START GABAPENTIN 300 MG AT BEDTIME 3-4 DAYS, THEN INCREASE TO MORNING AND NIGHT. CONTINUE EFFORTS TO CAPTURE RIGHT LOW BACK/BUTTOCK AREA PAIN WITH [facility]/ CHINMAY FROM [employer]., ISTOP REGISTRY REVIEWED AND DEMONSTRATES COMPLLIANCE. BRINGS IN MEDICATIONS WHICH IS APPROPRIATE FOR WHAT WAS DISPENSED. RECENT URINE TOXICOLOGY REVIEWED. NO UNAUTHORIZED MEDICATIONS. NO ILLICIT SUBSTANCES AND PRESCRIBED MEDICATIONS WERE PRESENT. , RISKS OF NARCOTIC/OPIOD MEDICATIONS INCLUDES BUT IS NOT LIMITED TO RISK OF DEPENDANCE/DEVELOPMENT OF ADDICTION, MOOD DISTURBANCE AND DEPRESSION, OSTEOPOROSIS, HORMONAL AND LABIDAL CHANGES, RESPIRATORY DEPRESSION AND . PATIENT IS ADVISED NOT TO DRIVE OR DRINK ALCOHOL WHILE ON THESE MEDICATIONS. PROCEDURE CODES FA211 ESTABILISHED PATIENT MERGED WITH [facility] CHARGE DISPOSITION & COMMUNICATION FOLLOW UP 4-6 WKS (REASON: MED MGMNT/DCS) ELECTRONICALLY SIGNED BY BENITA HOOKER ON 09/01/2019 AT 02:51 PM EDT DISCLAIMER : THIS IS A VISIT SUMMARY EXTRACTED FROM THE [employer] CHART. IT IS NOT A COPY OF THE [employer] PROGRESS NOTE. ESTHER
== END ==
LOC: M PAIN 09:00
PROVIDERS: ATTEND Nurse Practitioner Family
DX: M96.1 Postlaminectomy syndrome, not elsewhere classified (principal); G47.30 Sleep apnea, unspecified; Z86.59 Personal history of other mental and behavioral disorders; Z96.641 Presence of right artificial hip joint; F17.220 Nicotine dependence, chewing tobacco, uncomplicated; Z88.8 Allergy status to other drugs, medicaments and biological substances; Z96.89 Presence of other specified functional implants; Z79.899 Other long term (current) drug therapy

== ENCOUNTER → 2019-10-13 | Outpatient (CLI) | payer OTHER, MEDICARE ==
--- NOTE | 2019-10-15 03:14 | ECWPNPC ---
PATIENT NAME: ISADORA MOLINA : 1985 GENDER: MALE VISIT DATE: 10/13/2019 DISCHARGE DATE: 10/13/19 1415 VISIT LOCKED DATE TIME: PHYSICIAN: NICCI BALBUENA RESOURCE: NICCI BALBUENA REASON FOR APPOINTMENT 1. MED MGMNT/DCS HISTORY OF PRESENT ILLNESS HISTORY OF PRESENT ILLNESS: PERMISSION RECEIVED BY PATIENT TO DO TELEMED VISIT VIA ZOOM. HAS BEEN SUFFERING WITH UNCONTROLLED RIGHT LOW BACK PAIN/THIGH PAIN OVER THE PAST FEW MONTHS. DORSAL COLUMN STIMULATOR CAN BE ADJUSTED TO CAPTURE IT, BUT WHEN THIS IS ADJUSTED OTHER AREAS BECOME PAINFUL. SUFFERS FROM AVASCULAR NECROSIS OF THE RIGHT HIP AND EARLY SIGNS OF AVASCULAR NECROSIS OF THE LEFT HIP. HE IS STATUS POST LUMBAR FUSION. CURRENTLY USING GABAPENTIN 400 MG TWICE A DAY THAT WAS STARTED AT HIS LAST VISIT. STATES HE NOTICES IMPROVEMENT SOMETIMES WITH THIS, BUT MOST OF THE TIME NOT. USING TRAMADOL 3 TIMES A DAY WITHOUT SIGNIFICANT IMPROVEMENT IN PAIN. USING TIZANIDINE 4 MG 1-2 TABLETS PER DAY THAT HE FINDS SOMEWHAT HELPFUL. DISCUSSED MEDICINE MANAGEMENT. RATING PAIN VAS 7/10. PAIN THE PATIENT DESCRIBES THE PAIN... FALL RISK SCREENING: SCREENING :NO FALLS REPORTED IN THE LAST YEAR CURRENT MEDICATIONS TAKING ALLOPURINOL 300 MG TABLET 2 TABLET ORALLY ONCE A DAY TAKING COLCHICINE 0.6 MG TABLET ONE TAB ORALLY EVERY 12 HOURS PRN PAIN TAKING VITAMIN D (ERGOCALCIFEROL) 75459 UNIT CAPSULE 1 CAPSULE ORALLY WEEKLY TAKING TIZANIDINE HCL 4 MG TABLET 1 TABLET NEEDED ORALLY FOR SPASMS AND PAIN AT BEDTIME MAY REPEAT IN 5 HRS MDD2 TAKING GABAPENTIN 400 MG CAPSULE 1 CAPSULE ORALLY BID TAKING TRAMADOL HCL 50 MG TABLET 1 TABLET NEEDED ORALLY Q8H PRN MDD3 NOT-TAKING PERCOCET 10-325 MG TABLET 1 TABLET NEEDED ORALLY BID MEDICATION LIST REVIEWED AND RECONCILED WITH THE PATIENT PAST MEDICAL HISTORY CHRONIC LOW BACK PAIN GOUT SLEEP APNEA WITH CPAP REFLUX PTSD HIP PAIN -BILATERAL AVASCULAR NECROSIS BILAT HIPS DX 03/2018 KIDNEY STONE ALLERGIES AMITRIPTYLINE: DYSPNEA SURGICAL HISTORY SPINAL FUSION X 2 2017 TOTAL RIGHT HIP 05/2018 DCS TRIAL 02/2019 PERMANENT DCS 04/2019 FAMILY HISTORY FATHER: ALIVE, DIAGNOSED WITH HYPERTENSION MOTHER: ALIVE, HYPERTENSION PATERNAL GRAND FATHER: OTHER MALIGNANT NEOPLASM OF UNSPECIFIED SITE MATERNAL GRAND FATHER: UNSPECIFIED HEART DISEASE MATERNAL GRAND MOTHER: DIABETES 1 BROTHER(S) , 1 SISTER(S) - HEALTHY. 1 SON(S) - HEALTHY. GRANDFATHER - PROSTATE CANCER. SOCIAL HISTORY GENERAL: TOBACCO USE ARE YOU A:NONSMOKER ADDITIONAL FINDINGS: TOBACCO USERCHEWS TOBACCO ALL DAY LATEX QUESTIONNAIRE LATEX ALLERGY : HAVE YOU EVER DEVELOPED ANY TYPE OF REACTION AFTER HANDLING LATEX PRODUCTS SUCH RUBBER GLOVES, CONDOMS, DIAPHRAGMS, BALLOONS, SOCKS, OR UNDERWEAR?NO LATEX ALLERGY : HAVE YOU EVER DEVELOPED ANY TYPE OF REACTION DURING OR AFTER DENTAL APPOINTMENT, VAGINAL/RECTAL EXAMINATION, SURGICAL PROCEDURE, OR ANY OTHER EXPOSURE?NO LATEX RISK : HAVE YOU EVER HAD ANY DIFFICULTY BREATHING OR HIVES AFTER EATING OR HANDLING ANY FRUITS, OR VEGETABLES; SUCH KIWI, BANANAS, STONE FRUITS, OR CHESTNUTSNO LATEX RISK : DO YOU HAVE A PREVIOUS PERSONAL HISTORY OF MORE THAN NINE SURGERIES, SPINA BIFIDA, OR REPEATED CATHERIZATIONS? NO LATEX RISK : ARE YOU FREQUENTLY EXPOSED TO LATEX PRODUCTS IN YOUR OCCUPATION?NO DATE ASKED : 08/14/2019 ALCOHOL SCREENING DID YOU HAVE A DRINK CONTAINING ALCOHOL IN THE PAST YEAR?YES HOW OFTEN DID YOU HAVE A DRINK CONTAINING ALCOHOL IN THE PAST YEAR?MONTHLY OR LESS (1 POINT) POINTS1 INTERPRETATIONNEGATIVE RECREATIONAL DRUG USE DRUG USE?NO CAFFEINE CAFFEINE USE?YES HOW OFTEN AND HOW MUCH? [employer] [id number] NONE LANGUAGE LANGUAGES SPOKEN:TURKMEN EDUCATION LEVEL OF EDUCATION:COLLEGE LEARNING BARRIERS / SPECIAL NEEDS BARRIERS TO LEARNING?NO HEARING IMPAIRED?NO VISION IMPAIRED?NO COGNITIVELY IMPAIRED?NO READINESS TO LEARN?YES LEARNING PREFERENCES?NO LEARNING CAPABILITIES PRESENT?YES EMOTIONAL BARRIERS?NO SPECIAL DEVICES?NO R D ENGINEER NEEDED?NO DOMESTIC VIOLENCE DO YOU FEEL SAFE IN YOUR ENVIRONMENT?YES OCCUPATION: DISABLED. DIET: REGULAR. EXERCISE: NO REGULAR EXERCISE. MARITAL STATUS: . OTHERS AT HOME: SPOUSE, CHILD. NEW PATIENT PAIN DIARY TODAY'S VISITNOTES 10/13/2019 PATIENT DESCRIBES PAIN :HAVE IT ALL THE TIME, STABBING, SHOOTING FROM 0-10, WHAT LEVEL IS YOUR PAIN TODAY?5 PAIN CLINIC PFS, CLERGY, PUBLIC HEALTH REFERRALS PFS REFERRAL NEEDED?NO CLERGY REFERRAL NEEDED?NO PUBLIC HEALTH REFERRAL NEEDED?NO HAS THE PATIENT BEEN EDUCATED REGARDING HIS/HER PLAN OF CARE?YES HAS THE PATIENT BEEN EDUCATED REGARDING PAIN, THE RISK FOR PAIN, THE IMPORTANCE OF EFFECTIVE PAIN MANAGEMENT, AND THE PAIN ASSESSMENT PROCESS?YES ADVANCE DIRECTIVE ADVANCE DIRECTIVE DISCUSSED WITH PATIENT:YES 08/14/2019 PT DOES NOT HAVE ANY ADVANCED DIRECTIVES, DECLINES INFORMATION ON HCP AT THIS TIME. JS HOSPITALIZATION/MAJOR DIAGNOSTIC PROCEDURE SEE ABOVE REVIEW OF SYSTEMS REVIEWED BY: PROVIDER: NICCI JOY . CONSTITUTIONAL: ANY CHANGE IN YOUR MEDICAL CONDITION? NO . CHILLS NO . FEVER NO . INFECTION: DO YOU HAVE NEW INFECTIONS? NO . DO YOU HAVE HISTORY OF MRSA? NO . MUSCULOSKELETAL: ANY NEW PATTERNS OF PAIN OR NUMBNESS? YES, STATES NEW PAIN TO SACROILIAC JOINT AREA . GASTROENTEROLOGY: ANY NEW CHANGE IN BOWEL CONTROL? NO . GENITOURINARY: ANY NEW CHANGE IN BLADDER CONTROL? NO . IS THERE A CHANCE YOU COULD BE ? NO . HEMATOLOGY/LYMPH: DO YOU TAKE ANY BLOOD THINNERS? (FOR EXAMPLE- COUMADIN, PLAVIX, AGGRENOX, PLATEL, PRADAXA, OR XARELTO) NO . WHEN WAS YOUR LAST DOSE? DATE: TIME: . NEUROLOGY: HAVE YOU FALLEN IN THE PAST 12 MONTHS? YES, STATES FALL APPROX 2 WEEKS AGO. NO ED VISIT BUT FEELS BACK PAIN HAS BEEN VERY EXACERBATED SINCE IN HIS SACROILIAC JOINT AREA . ANY NEW EXTREMITY NUMBNESS OR WEAKNESS? NO . CARDIOLOGY: DO YOU HAVE A PACEMAKER OR DEFIBRILLATOR? NO, DCS . RESPIRATORY: HAVE YOU BEEN SICK IN THE PAST WEEK? NO . FEVER NO . FLU LIKE SYMPTOMS? NO . COUGH NO . INTEGUMENTARY: DO YOU HAVE ANY RASHES OR OPEN SORES? NO . ALLERGIC/IMMUNO: ARE YOU ALLERGIC TO IV DYE? NO . ANY NEW ALLERGIES? NO . PSYCHIATRIC: DO YOU HAVE THOUGHTS OF HURTING YOURSELF OR SOMEONE ELSE? NO . ARE YOU ABUSED, NEGLECTED, OR IN AN UNSAFE ENVIRONMENT? NO . ENDOCRINOLOGY: ARE YOU DIABETIC? NO . OTHER: DO YOU NEED ANY PRESCRIPTIONS? YES . IF YES, PLEASE LIST: ____TIZANIDINE . ANY NEW PROBLEMS WITH YOUR MEDICATIONS? NO . WHEN DID YOU LAST EAT? ____ . WHEN DID YOU LAST DRINK? ____ . WHAT DID YOU LAST DRINK? ____ . NAME OF PERSON DRIVING YOU HOME? ____ . DO YOU HAVE ANY OTHER QUESTIONS OR CONCERNS YES, STATES THE TRAMADOL DOES NOT SEEM TO BE WORKING WELL LATELY, WOULD LIKE TO DISCUSS OTHER MEDICATIONS. ALSO CURIOUS IF HE CAN USE THE BIOWAVE UNIT (TENS) AT THE SAME TIME THE DCS . EXAMINATION GENERAL EXAMINATION: GENERAL WELL NOURISHED AND HYDRATED. PSYCHAPPEARS STRESSED WITH FLAT AFFECT . FACE:UNREMARKABLE. ASSESSMENTS AVASCULAR NECROSIS OF BONE OF RIGHT HIP - M87.051 (PRIMARY) LUMBAR POST-LAMINECTOMY SYNDROME - M96.1 TREATMENT AVASCULAR NECROSIS OF BONE OF RIGHT HIP REFILL TIZANIDINE HCL TABLET, 4 MG, 1 TABLET NEEDED, ORALLY FOR SPASMS AND PAIN, AT BEDTIME MAY REPEAT IN 5 HRS MDD2, 30 DAYS, 60, REFILLS 3 CONTINUE GABAPENTIN CAPSULE, 400 MG, 1 CAPSULE, ORALLY, BID CONTINUE TRAMADOL HCL TABLET, 50 MG, 1 TABLET NEEDED, ORALLY, Q8H PRN MDD3 START BUTRANS PATCH WEEKLY, 10 MCG/HR, 1 PATCH TO SKIN, TRANSDERMAL, M5ETMD=EEM, 30 DAYS, 4, REFILLS 2 NOTES: DUE TO PATIENT'S UNCONTROLLED 24HR SEVERE PAIN, WHICH IS INTERRUPTING HIS SLEEP AND ABILITY TO TOLERATE ACTIVITIES OF DAILY LIVING I'M RECOMMENDING A LONG-ACTING PAIN MEDICATION, BUTRANS PATCH. I'VE CHOSEN A C3 NARCOTIC PAIN MEDICATION TO REDUCE TOTAL NUMBER OF MORPHINE MILLIEQUIVALENTS DAILY , SAFETY CONCERNS WITH C2 NARCOTICS AND LESS POTENTIAL FOR SIDE EFFECTS PER CDC GUIDELINES. WE HAVE GIVEN PATIENT INFORMATION REGARDING [facility] IN [place]. WE HAVE ENCOURAGED HIM TO CALL IN REGARDS TO THE USE OF MEDICAL MARIJUANA FOR PTSD, ANXIETY AND CHRONIC PAIN. CHINMAY FROM [employer] WILL BE IN TOUCH WITH PATIENT TODAY TO DISCUSS DORSAL COLUMN STIMULATOR AND POTENTIAL ADJUSTMENTS. TOTAL TIME SPENT DURING TELEMED VISIT WAS APPROXIMATELY 20 MINUTES. , ISTOP REGISTRY REVIEWED AND DEMONSTRATES COMPLLIANCE. RECENT URINE TOXICOLOGY REVIEWED. NO UNAUTHORIZED MEDICATIONS. NO ILLICIT SUBSTANCES AND PRESCRIBED MEDICATIONS WERE PRESENT. REFER TO [facility]. OTHERS NOTES: NO VITALS OBTAINED DUE TO VIRTUAL VISIT. DISPOSITION & COMMUNICATION FOLLOW UP TELEMED 4 WEEKS (REASON: MED MGMNT-BUTRANS) ELECTRONICALLY SIGNED BY BENITA HOOKER ON 10/14/2019 AT 08:41 AM EDT DISCLAIMER : THIS IS A VISIT SUMMARY EXTRACTED FROM THE [employer] CHART. IT IS NOT A COPY OF THE [employer] PROGRESS NOTE. ESTHER
== END ==
LOC: M PAIN 13:30
PROVIDERS: ATTEND Nurse Practitioner Family
DX: M87.051 Idiopathic aseptic necrosis of right femur (principal); G89.29 Other chronic pain; G47.30 Sleep apnea, unspecified; Z86.59 Personal history of other mental and behavioral disorders; Z96.641 Presence of right artificial hip joint; F17.220 Nicotine dependence, chewing tobacco, uncomplicated; Z88.8 Allergy status to other drugs, medicaments and biological substances; Z79.899 Other long term (current) drug therapy

== ENCOUNTER → 2019-11-11 | Outpatient (CLI) | payer OTHER, MEDICARE ==
--- NOTE | 2019-11-19 05:14 | ECWPNPC ---
PATIENT NAME: ISADORA MOLINA : 1985 GENDER: MALE VISIT DATE: 11/11/2019 DISCHARGE DATE: 11/11/19 1436 VISIT LOCKED DATE TIME: PHYSICIAN: NICCI BALBUENA RESOURCE: NICCI BALBUENA REASON FOR APPOINTMENT 1. MED [phone] PAT DONE EXCEPT DIAGRAM HISTORY OF PRESENT ILLNESS HISTORY OF PRESENT ILLNESS: PATIENT IS AGREEABLE TO TELEMED VISIT VIA ZOOM. PATIENT IS DOING QUITE WELL WITH MEDICAL MARIJUANA. RATING PAIN LEVEL A 4/10 VAS. DISCUSSED DECREASING AND DISCONTINUING TRAMADOL AND NUCYNTA. HE CURRENTLY IS NOT TAKING MUCH OF THESE MEDICATIONS. HE WILL TRY TO REACH [employer] FROM [employer] TO DISCUSS ADJUSTMENTS IN DORSAL COLUMN STIMULATOR. PATIENT FINDS MEDICAL MARIJUANA HELPFUL FOR BOTH PAIN AND ANXIETY/PTSD. PAIN THE PATIENT DESCRIBES THE PAINDURING THE LAST MONTH SEVERITY - PAIN SCORE OF7/10, 8/10 LOCATIONSLOWER BACK, RIGHT LEG QUALITYACHING , BURNING, SHARP, STABBING, TENDER, THROBBING, SHOOTING DURATIONCONTINUOUS, CONSTANT, ALL DAY PAIN IS INCREASED BY:ACTIVITIES, PROLONGED STANDING PAIN IS DECREASED BY:USE OF PAIN MEDICATIONS DORSAL COLUMN STIMULATOR, MEDICAL MARIJUANA FALL RISK SCREENING: SCREENING :NO FALLS REPORTED IN THE LAST YEAR CURRENT MEDICATIONS TAKING ALLOPURINOL 300 MG TABLET 2 TABLET ORALLY ONCE A DAY TAKING COLCHICINE 0.6 MG TABLET ONE TAB ORALLY EVERY 12 HOURS PRN PAIN TAKING VITAMIN D (ERGOCALCIFEROL) 17591 UNIT CAPSULE 1 CAPSULE ORALLY WEEKLY TAKING TIZANIDINE HCL 4 MG TABLET 1 TABLET NEEDED ORALLY FOR SPASMS AND PAIN AT BEDTIME MAY REPEAT IN 5 HRS MDD2 TAKING GABAPENTIN 400 MG CAPSULE 1 CAPSULE ORALLY BID TAKING TRAMADOL HCL 50 MG TABLET 1 TABLET NEEDED ORALLY Q8H PRN MDD3 TAKING BUTRANS 10 MCG/HR PATCH WEEKLY 1 PATCH TO SKIN TRANSDERMAL [id number] TAKING NUCYNTA ER 100 MG TABLET EXTENDED RELEASE 12 HOUR 1 TABLET ORALLY EVERY 12 HRS MDD2 TAKING NUCYNTA ER 50 MG TABLET EXTENDED RELEASE 12 HOUR 1 TABLET ORALLY EVERY 12 HRS MDD2 TAKING NUCYNTA ER 50 MG TABLET EXTENDED RELEASE 12 HOUR 1 TABLET ORALLY EVERY 12 HRS MDD2 NOT-TAKING PERCOCET 10-325 MG TABLET 1 TABLET NEEDED ORALLY BID MEDICATION LIST REVIEWED AND RECONCILED WITH THE PATIENT PAST MEDICAL HISTORY CHRONIC LOW BACK PAIN GOUT SLEEP APNEA WITH CPAP REFLUX PTSD HIP PAIN -BILATERAL AVASCULAR NECROSIS BILAT HIPS DX 03/2018 KIDNEY STONE ALLERGIES AMITRIPTYLINE: DYSPNEA SURGICAL HISTORY SPINAL FUSION X 2 2017 TOTAL RIGHT HIP 05/2018 DCS TRIAL 02/2019 PERMANENT DCS 04/2019 FAMILY HISTORY FATHER: ALIVE, DIAGNOSED WITH HYPERTENSION MOTHER: ALIVE, HYPERTENSION PATERNAL GRAND FATHER: OTHER MALIGNANT NEOPLASM OF UNSPECIFIED SITE MATERNAL GRAND FATHER: UNSPECIFIED HEART DISEASE MATERNAL GRAND MOTHER: DIABETES 1 BROTHER(S) , 1 SISTER(S) - HEALTHY. 1 SON(S) - HEALTHY. GRANDFATHER - PROSTATE CANCER. SOCIAL HISTORY GENERAL: TOBACCO USE ARE YOU A:NONSMOKER ADDITIONAL FINDINGS: TOBACCO USERCHEWS TOBACCO ALL DAY LATEX QUESTIONNAIRE LATEX ALLERGY : HAVE YOU EVER DEVELOPED ANY TYPE OF REACTION AFTER HANDLING LATEX PRODUCTS SUCH RUBBER GLOVES, CONDOMS, DIAPHRAGMS, BALLOONS, SOCKS, OR UNDERWEAR?NO LATEX ALLERGY : HAVE YOU EVER DEVELOPED ANY TYPE OF REACTION DURING OR AFTER DENTAL APPOINTMENT, VAGINAL/RECTAL EXAMINATION, SURGICAL PROCEDURE, OR ANY OTHER EXPOSURE?NO DATE ASKED : 08/14/2019 LATEX RISK : HAVE YOU EVER HAD ANY DIFFICULTY BREATHING OR HIVES AFTER EATING OR HANDLING ANY FRUITS, OR VEGETABLES; SUCH KIWI, BANANAS, STONE FRUITS, OR CHESTNUTSNO LATEX RISK : DO YOU HAVE A PREVIOUS PERSONAL HISTORY OF MORE THAN NINE SURGERIES, SPINA BIFIDA, OR REPEATED CATHERIZATIONS? NO LATEX RISK : ARE YOU FREQUENTLY EXPOSED TO LATEX PRODUCTS IN YOUR OCCUPATION?NO ALCOHOL SCREENING DID YOU HAVE A DRINK CONTAINING ALCOHOL IN THE PAST YEAR?YES HOW OFTEN DID YOU HAVE A DRINK CONTAINING ALCOHOL IN THE PAST YEAR?MONTHLY OR LESS (1 POINT) POINTS1 INTERPRETATIONNEGATIVE RECREATIONAL DRUG USE DRUG USE?NO CAFFEINE CAFFEINE USE?YES HOW OFTEN AND HOW MUCH? [employer] ISLAM [id number] NONE LANGUAGE LANGUAGES SPOKEN:PRYDEINIG EDUCATION LEVEL OF EDUCATION:COLLEGE LEARNING BARRIERS / SPECIAL NEEDS BARRIERS TO LEARNING?NO HEARING IMPAIRED?NO VISION IMPAIRED?NO COGNITIVELY IMPAIRED?NO READINESS TO LEARN?YES LEARNING PREFERENCES?NO LEARNING CAPABILITIES PRESENT?YES EMOTIONAL BARRIERS?NO SPECIAL DEVICES?NO MEDICAL STAFFING COORDINATOR NEEDED?NO DOMESTIC VIOLENCE DO YOU FEEL SAFE IN YOUR ENVIRONMENT?YES OCCUPATION: DISABLED. DIET: REGULAR. EXERCISE: NO REGULAR EXERCISE. MARITAL STATUS: . OTHERS AT HOME: SPOUSE, CHILD. NEW PATIENT PAIN DIARY TODAY'S VISITNOTES 10/13/2019 PATIENT DESCRIBES PAIN :HAVE IT ALL THE TIME, STABBING, SHOOTING FROM 0-10, WHAT LEVEL IS YOUR PAIN TODAY?5 PAIN CLINIC PFS, CLERGY, PUBLIC HEALTH REFERRALS PFS REFERRAL NEEDED?NO CLERGY REFERRAL NEEDED?NO PUBLIC HEALTH REFERRAL NEEDED?NO HAS THE PATIENT BEEN EDUCATED REGARDING HIS/HER PLAN OF CARE?YES HAS THE PATIENT BEEN EDUCATED REGARDING PAIN, THE RISK FOR PAIN, THE IMPORTANCE OF EFFECTIVE PAIN MANAGEMENT, AND THE PAIN ASSESSMENT PROCESS?YES ADVANCE DIRECTIVE ADVANCE DIRECTIVE DISCUSSED WITH PATIENT:YES 08/14/2019 PT DOES NOT HAVE ANY ADVANCED DIRECTIVES, DECLINES INFORMATION ON HCP AT THIS TIME. JS HOSPITALIZATION/MAJOR DIAGNOSTIC PROCEDURE SEE ABOVE REVIEW OF SYSTEMS REVIEWED BY: PROVIDER: NICCI JOY . CONSTITUTIONAL: ANY CHANGE IN YOUR MEDICAL CONDITION? NO . CHILLS NO . FEVER NO . INFECTION: DO YOU HAVE NEW INFECTIONS? NO . DO YOU HAVE HISTORY OF MRSA? NO . MUSCULOSKELETAL: ANY NEW PATTERNS OF PAIN OR NUMBNESS? NO . GASTROENTEROLOGY: ANY NEW CHANGE IN BOWEL CONTROL? NO . GENITOURINARY: ANY NEW CHANGE IN BLADDER CONTROL? NO . IS THERE A CHANCE YOU COULD BE ? NO . HEMATOLOGY/LYMPH: DO YOU TAKE ANY BLOOD THINNERS? (FOR EXAMPLE- COUMADIN, PLAVIX, AGGRENOX, PLATEL, PRADAXA, OR XARELTO) NO . WHEN WAS YOUR LAST DOSE? DATE: TIME: . NEUROLOGY: HAVE YOU FALLEN IN THE PAST 12 MONTHS? NO . ANY NEW EXTREMITY NUMBNESS OR WEAKNESS? NO . CARDIOLOGY: DO YOU HAVE A PACEMAKER OR DEFIBRILLATOR? NO . RESPIRATORY: HAVE YOU BEEN SICK IN THE PAST WEEK? NO . FEVER NO . FLU LIKE SYMPTOMS? NO . COUGH NO . INTEGUMENTARY: DO YOU HAVE ANY RASHES OR OPEN SORES? NO . ALLERGIC/IMMUNO: ARE YOU ALLERGIC TO IV DYE? NO . ANY NEW ALLERGIES? NO . PSYCHIATRIC: DO YOU HAVE THOUGHTS OF HURTING YOURSELF OR SOMEONE ELSE? NO . ARE YOU ABUSED, NEGLECTED, OR IN AN UNSAFE ENVIRONMENT? NO . ENDOCRINOLOGY: ARE YOU DIABETIC? NO . OTHER: DO YOU NEED ANY PRESCRIPTIONS? NO . IF YES, PLEASE LIST: ____ . ANY NEW PROBLEMS WITH YOUR MEDICATIONS? NO . WHEN DID YOU LAST EAT? ____ . WHEN DID YOU LAST DRINK? ____ . WHAT DID YOU LAST DRINK? ____ . NAME OF PERSON DRIVING YOU HOME? ____ . DO YOU HAVE ANY OTHER QUESTIONS OR CONCERNS NO . EXAMINATION GENERAL EXAMINATION: GENERALNO ACUTE DISTRESS, WELL NOURISHED AND HYDRATED. PSYCHAPPROPRIATE MOOD AND AFFECT . FACE:UNREMARKABLE. ASSESSMENTS AVASCULAR NECROSIS OF BONE OF RIGHT HIP - M87.051 (PRIMARY) LUMBAR POST-LAMINECTOMY SYNDROME - M96.1 TREATMENT AVASCULAR NECROSIS OF BONE OF RIGHT HIP NOTES: PATIENT WILL DECREASE AND DISCONTINUE TRAMADOL. HE WILL ALSO TRY TO DECREASE AND DISCONTINUE NUCYNTA. FOLLOW-UP WILL BE SCHEDULED IN 2 MONTHS. TOTAL TIME SPENT DURING TELEMED VISIT WAS APPROXIMATELY 12 MINUTES. OTHERS NOTES: VITALS NOT OBTAINED DUE TO VIRTUAL VISIT, PRE SCREENING DONE, 11/10/19, NA. DISPOSITION & COMMUNICATION FOLLOW UP 2 MONTHS (REASON: LOW BACK PAIN) ELECTRONICALLY SIGNED BY BENITA HOOKER ON 11/18/2019 AT 03:50 PM EDT DISCLAIMER : THIS IS A VISIT SUMMARY EXTRACTED FROM THE [employer] CHART. IT IS NOT A COPY OF THE [employer] PROGRESS NOTE. ESTHER
== END ==
LOC: M TMPAIN 11:15 → M PAIN 11:15
PROVIDERS: ATTEND Nurse Practitioner Family
DX: M87.051 Idiopathic aseptic necrosis of right femur (principal); Z79.891 Long term (current) use of opiate analgesic; Z79.899 Other long term (current) drug therapy; Z88.8 Allergy status to other drugs, medicaments and biological substances

== ENCOUNTER → 2020-01-12 | Outpatient (CLI) | payer MEDICARE, OTHER ==
--- NOTE | 2020-01-13 08:19 | ECWPNPC ---
PATIENT NAME: ISADORA MOLINA : 1985 GENDER: MALE VISIT DATE: 01/12/2020 DISCHARGE DATE: 01/12/20 1201 VISIT LOCKED DATE TIME: PHYSICIAN: NICCI BALBUENA RESOURCE: NICCI BALBUENA REASON FOR APPOINTMENT 1. LOW BACK PAIN HISTORY OF PRESENT ILLNESS GENERAL: HERE FOR FOLLOW-UP OF CHRONIC LOW BACK PAIN. STARTED ON MEDICAL MARIJUANA A FEW MONTHS AGO AND INITIALLY THOUGHT IT WAS HELPFUL. STATES NOW IT IS CAUSING SIDE EFFECTS THAT HE IS NOT COMFORTABLE WITH. HE HAS STOPPED MEDICAL MARIJUANA. HE FEELS NUCYNTA EXTENDED RELEASE AND TRAMADOL WERE MORE HELPFUL. ALSO COMPLAINING THAT DORSAL COLUMN STIMULATOR SOMETIMES IS NOT EFFECTIVE. WE HAVE TALKED ABOUT HIM CONTACTING [facility], BUT HE DIDN'T DO THAT. HE IS AGREEABLE TO CONTACT THEM AND TRY TO SET UP AN APPOINTMENT HERE FOR STIM ADJUSTMENT. -. FALL RISK SCREENING: SCREENING :NO FALLS REPORTED IN THE LAST YEAR PAIN SCREENING: PATIENT HAS A COMPLAINT OF ACUTE OR CHRONIC PAIN :YES LOCATION OF PAIN:LOW BACK, LEFT HIP, LEG(S) INTENSITY OF PAIN (SCALE OF 1 TO 10):7 WHAT DOES YOUR PAIN FEEL LIKE:CONTINOUS, INTERMITTENT, SHARP, STABBING, THROBBING, SHOOTING NURSING NOTE: -. PAIN CENTER INTAKE QUESTIONS: NOTES: PT STATES HE WOULD LIKE TO TRY TRAMADOL AGAIN, PT STATES THAT HE TRIED MEDICAL MARIJUANA AND DID NOT LIKE HOW IT MADE HIM FEEL.. DO YOU HAVE A HISTORY OF MRSA? :NO DO YOU TAKE A BLOOD THINNERS? :NO DO YOU HAVE ANY BLEEDING DISORDERS? :NO ANY NEW NUMBNESS OR WEAKNESS IN YOUR LEGS OR ARMS? :NO ANY PACEMAKER,DEFIBRILLATOR, OR DORSAL COLUMN STIMULATOR? :YES DORSAL COLUMN STIMULATOR DO YOU HAVE ANY RASHES OR OPEN SORES? :NO ARE YOU ALLERGIC TO IV DYE? :NO ARE YOU DIABETIC? :NO ANY NEW PROBLEMS WITH YOUR MEDICATIONS? :NO HAVE YOU RECEIVED A VACCINE IN THE PAST 30 DAYS? :NO DO YOU PLAN TO RECEIVE A VACCINE IN THE NEXT 21 DAYS? :NO DO YOU NEED ANY PRESCRIPTION? :NO DO YOU TAKE ANY IMMUNOSUPPRESSIVE MEDICATIONS? :NO IS THERE A CHANCE YOU COULD BE ? :NO ARE YOU BREAST FEEDING? :NO CURRENT MEDICATIONS TAKING ALLOPURINOL 300 MG TABLET 2 TABLET ORALLY ONCE A DAY TAKING COLCHICINE 0.6 MG TABLET ONE TAB ORALLY EVERY 12 HOURS PRN PAIN TAKING VITAMIN D (ERGOCALCIFEROL) 19995 UNIT CAPSULE 1 CAPSULE ORALLY WEEKLY TAKING TIZANIDINE HCL 4 MG TABLET 1 TABLET NEEDED ORALLY FOR SPASMS AND PAIN AT BEDTIME MAY REPEAT IN 5 HRS MDD2 TAKING NUCYNTA ER 50 MG TABLET EXTENDED RELEASE 12 HOUR 1 TABLET ORALLY EVERY 12 HRS MDD2 TAKING GABAPENTIN 400 MG CAPSULE 1 CAPSULE ORALLY BID NOT-TAKING MAY USE MEDICAL MARIJUANA NOT-TAKING TRAMADOL HCL 50 MG TABLET 1 TABLET NEEDED ORALLY Q8H PRN MDD3 NOT-TAKING BUTRANS 10 MCG/HR PATCH WEEKLY 1 PATCH TO SKIN TRANSDERMAL [id number] NOT-TAKING NUCYNTA ER 100 MG TABLET EXTENDED RELEASE 12 HOUR 1 TABLET ORALLY EVERY 12 HRS MDD2 NOT-TAKING NUCYNTA ER 50 MG TABLET EXTENDED RELEASE 12 HOUR 1 TABLET ORALLY EVERY 12 HRS MDD2 NOT-TAKING PERCOCET 10-325 MG TABLET 1 TABLET NEEDED ORALLY BID MEDICATION LIST REVIEWED AND RECONCILED WITH THE PATIENT PAST MEDICAL HISTORY CHRONIC LOW BACK PAIN GOUT SLEEP APNEA WITH CPAP REFLUX PTSD HIP PAIN -BILATERAL AVASCULAR NECROSIS BILAT HIPS DX 03/2018 KIDNEY STONE ALLERGIES AMITRIPTYLINE HCL: DYSPNEA - SIDE EFFECTS SURGICAL HISTORY SPINAL FUSION X 2 2017 TOTAL RIGHT HIP 05/2018 DCS TRIAL 02/2019 PERMANENT DCS 04/2019 FAMILY HISTORY FATHER: ALIVE, DIAGNOSED WITH HYPERTENSION MOTHER: ALIVE, HYPERTENSION PATERNAL GRAND FATHER: OTHER MALIGNANT NEOPLASM OF UNSPECIFIED SITE MATERNAL GRAND FATHER: UNSPECIFIED HEART DISEASE MATERNAL GRAND MOTHER: DIABETES 1 BROTHER(S) , 1 SISTER(S) - HEALTHY. 1 SON(S) - HEALTHY. GRANDFATHER - PROSTATE CANCER. SOCIAL HISTORY GENERAL: TOBACCO USE ARE YOU A:NONSMOKER ADDITIONAL FINDINGS: TOBACCO USERCHEWS TOBACCO ALL DAY LATEX QUESTIONNAIRE LATEX ALLERGY : HAVE YOU EVER DEVELOPED ANY TYPE OF REACTION AFTER HANDLING LATEX PRODUCTS SUCH RUBBER GLOVES, CONDOMS, DIAPHRAGMS, BALLOONS, SOCKS, OR UNDERWEAR?NO LATEX ALLERGY : HAVE YOU EVER DEVELOPED ANY TYPE OF REACTION DURING OR AFTER DENTAL APPOINTMENT, VAGINAL/RECTAL EXAMINATION, SURGICAL PROCEDURE, OR ANY OTHER EXPOSURE?NO LATEX RISK : HAVE YOU EVER HAD ANY DIFFICULTY BREATHING OR HIVES AFTER EATING OR HANDLING ANY FRUITS, OR VEGETABLES; SUCH KIWI, BANANAS, STONE FRUITS, OR CHESTNUTSNO LATEX RISK : DO YOU HAVE A PREVIOUS PERSONAL HISTORY OF MORE THAN NINE SURGERIES, SPINA BIFIDA, OR REPEATED CATHERIZATIONS? NO LATEX RISK : ARE YOU FREQUENTLY EXPOSED TO LATEX PRODUCTS IN YOUR OCCUPATION?NO DATE ASKED : 01/12/2020 ALCOHOL SCREENING DID YOU HAVE A DRINK CONTAINING ALCOHOL IN THE PAST YEAR?YES HOW OFTEN DID YOU HAVE A DRINK CONTAINING ALCOHOL IN THE PAST YEAR?MONTHLY OR LESS (1 POINT) POINTS1 INTERPRETATIONNEGATIVE RECREATIONAL DRUG USE DRUG USE?NO CAFFEINE CAFFEINE USE?YES HOW OFTEN AND HOW MUCH? [employer] SIKHISM [id number] NONE LANGUAGE LANGUAGES SPOKEN:TOGOLESE EDUCATION LEVEL OF EDUCATION:COLLEGE LEARNING BARRIERS / SPECIAL NEEDS BARRIERS TO LEARNING?NO HEARING IMPAIRED?NO VISION IMPAIRED?NO COGNITIVELY IMPAIRED?NO READINESS TO LEARN?YES LEARNING PREFERENCES?NO LEARNING CAPABILITIES PRESENT?YES EMOTIONAL BARRIERS?NO SPECIAL DEVICES?NO SMT MACHINE OPERATOR NEEDED?NO DOMESTIC VIOLENCE DO YOU FEEL SAFE IN YOUR ENVIRONMENT?YES OCCUPATION: DISABLED. DIET: REGULAR. EXERCISE: NO REGULAR EXERCISE. MARITAL STATUS: . OTHERS AT HOME: SPOUSE, CHILD. PAIN CLINIC PFS, CLERGY, PUBLIC HEALTH REFERRALS PFS REFERRAL NEEDED?NO CLERGY REFERRAL NEEDED?NO PUBLIC HEALTH REFERRAL NEEDED?NO WAS THE PROVIDER NOTIFIED OF ANY PERTINENT INFO?YES HAS THE PATIENT BEEN EDUCATED REGARDING HIS/HER PLAN OF CARE?YES HAS THE PATIENT BEEN EDUCATED REGARDING PAIN, THE RISK FOR PAIN, THE IMPORTANCE OF EFFECTIVE PAIN MANAGEMENT, AND THE PAIN ASSESSMENT PROCESS?YES ADVANCE DIRECTIVE ADVANCE DIRECTIVE DISCUSSED WITH PATIENT:YES PT DOES NOT HAVE ANY ADVANCED DIRECTIVES, DECLINES INFORMATION ON HCP AT THIS TIME. HOSPITALIZATION/MAJOR DIAGNOSTIC PROCEDURE SEE ABOVE REVIEW OF SYSTEMS CONSTITUTIONAL: ANY RECENT FEVER NO . CHILLS NO . WEIGHT CHANGE OF UNKNOWN REASONS NO . GASTROENTEROLOGY: NEW UNEXPLAINABLE CHANGES IN BOWEL CONTROL NO . CONSTIPATION NO . GENITOURINARY: ANY NEW CHANGE IN BLADDER CONTROL? NO . NEUROLOGY: NEW ONSET DIZZINESS OR NEUROLOGICAL CHANGES NOT MENTIONED NO . NEW NUMBNESS OR PAIN PATTERNS NOT MENTIONED AND PERTINENT TO TODAY'S VISIT NO . CARDIOLOGY: NEW CHEST PRESSURE NO . NEW CHEST PAIN NO . RESPIRATORY: UNEXPLAINABLE COUGH NO . NEW SHORTNESS OF BREATH NO . VITAL SIGNS WT 234.0 LBS, HT 67 IN, BMI 36.65 INDEX, BP 124/79 MM HG, HR 73 /MIN, RR 18 /MIN, TEMP 98.2 F, OXYGEN SAT % 96%, SAFE IN ENV? (Y/N) Y, NA INITIALS AW 1115, REVIEWED BY: JON. EXAMINATION GENERAL EXAMINATION: GENERALAWAKE,ALERT ,PLEASANT . PSYCHAFFECT NORMAL . LUNGS:LUNG ALEMAN ARE CLEAR TO AUSCULTATION BILATERALLY. GOOD MOVEMENT OF AIR . HEART:S1, S2 IN A REGULAR RATE AND RHYTHM. NO SIGNIFICANT MURMURS, RUBS OR GALLOPS NOTED . ASSESSMENTS AVASCULAR NECROSIS OF BONE OF RIGHT HIP - M87.051 (PRIMARY) LUMBAR POST-LAMINECTOMY SYNDROME - M96.1 TREATMENT AVASCULAR NECROSIS OF BONE OF RIGHT HIP CONTINUE TIZANIDINE HCL TABLET, 4 MG, 1 TABLET NEEDED, ORALLY FOR SPASMS AND PAIN, AT BEDTIME MAY REPEAT IN 5 HRS MDD2 REFILL NUCYNTA ER TABLET EXTENDED RELEASE 12 HOUR, 50 MG, 1 TABLET, ORALLY, EVERY 12 HRS MDD2, 30 DAYS, 60, REFILLS 0 REFILL TRAMADOL HCL TABLET, 50 MG, 1 TABLET NEEDED, ORALLY, Q8H PRN MDD3, 30 DAYS, 90, REFILLS 2 NOTES: ISTOP REGISTRY REVIEWED AND DEMONSTRATES COMPLLIANCE. RECENT URINE TOXICOLOGY REVIEWED. NO UNAUTHORIZED MEDICATIONS. NO ILLICIT SUBSTANCES AND PRESCRIBED MEDICATIONS WERE PRESENT. , RISKS OF NARCOTIC/OPIOD MEDICATIONS INCLUDES BUT IS NOT LIMITED TO RISK OF DEPENDANCE/DEVELOPMENT OF ADDICTION, MOOD DISTURBANCE AND DEPRESSION, OSTEOPOROSIS, HORMONAL AND LABIDAL CHANGES, RESPIRATORY DEPRESSION AND . PATIENT IS ADVISED NOT TO DRIVE OR DRINK ALCOHOL WHILE ON THESE MEDICATIONS. PREVENTIVE MEDICINE PAIN CLINIC TEACHING: THE PATIENT HAS BEEN EDUCATED REGARDING PAIN, THE RISK FOR PAIN, THE IMPORTANCE OF EFFECTIVE PAIN MANAGEMENT, AND THE PAIN ASSESSMENT PROCESS. : REVIEWED VERBAL PLAN OF CARE INSTRUCTIONS WITH PATIENT, PT ACKNOWLEDGED UNDERSTANDING. DS PROCEDURE CODES [id number] ESTABILISHED [facility] DISPOSITION & COMMUNICATION FOLLOW UP 2 MONTHS (REASON: MED MGMNT) ELECTRONICALLY SIGNED BY BENITA HOOKER ON 01/12/2020 AT 03:12 PM EDT DISCLAIMER : THIS IS A VISIT SUMMARY EXTRACTED FROM THE [employer] CHART. IT IS NOT A COPY OF THE [employer] PROGRESS NOTE. MTDD
== END ==
LOC: M PAIN 11:30
PROVIDERS: ATTEND Nurse Practitioner Family
DX: M87.051 Idiopathic aseptic necrosis of right femur (principal); M96.1 Postlaminectomy syndrome, not elsewhere classified

== ENCOUNTER → 2020-06-14 | Outpatient (CLI) | payer OTHER, MEDICARE ==
[~2020-06-14] MED LIST changes: +COLC0.6T47 PO; -COLC1TAB13 PO
--- NOTE | 2020-06-14 23:30 | ECWPNPC ---
PATIENT NAME: ISADORA MOLINA : 1985 GENDER: MALE VISIT DATE: 06/14/2020 DISCHARGE DATE: 06/14/20 0935 VISIT LOCKED DATE TIME: PHYSICIAN: NICCI BALBUENA RESOURCE: NICCI BALBUENA REASON FOR APPOINTMENT 1. MED MANAGEMENT HISTORY OF PRESENT ILLNESS DEPRESSION SCREENING: PHQ-2 (2015 EDITION) LITTLE INTEREST OR PLEASURE IN DOING THINGS?NOT AT ALL FEELING DOWN, DEPRESSED, OR HOPELESS?NOT AT ALL TOTAL SCORE0 GENERAL: HERE FOR FOLLOW-UP OF CHRONIC LOW BACK PAIN. HAS DORSAL COLUMN STIMULATOR. HAS BEEN HAVING SOME RIGHT LOW BACK PAIN AND SWELLING OVER THE PAST 6 MONTHS. [facility] ORDERED MRI OF LS SPINE THAT WAS DONE END OF MARCH AT [facility]. UNFORTUNATELY THIS IS NOT AVAILABLE AND WAS NOT READ DUE TO THE FACT THAT COMPUTER WAS COMPROMISED THROUGHOUT THE [facility] SYSTEM THE FOLLOWING DAY AFTER HIS PROCEDURE. DISCUSSED MEDICATION PLAN. STOPPED NUCYNTA EXTENDED RELEASE A FEW WEEKS AGO. STATES HE HASN'T REALLY NOTICED ANY CHANGE IN HIS PAIN SITUATION. CURRENTLY USING TRAMADOL 50 MG PERIODICALLY AND TIZANIDINE PERIODICALLY FOR SEVERE PAIN EPISODES. HE DOESN'T FEEL TRAMADOL IS VERY EFFECTIVE. TIZANIDINE CAUSES HIM TO SLEEP. DISCUSSED USE OF HYDROCODONE 7.5/325 MG PERIODICALLY FOR SEVERE PAIN EPISODES. -. FALL RISK SCREENING: SCREENING :NO FALLS REPORTED IN THE LAST YEAR PAIN SCREENING: PATIENT HAS A COMPLAINT OF ACUTE OR CHRONIC PAIN :YES LOCATION OF PAIN:LOW BACK, LEG(S) RIGHT SIDE OF BACK AND RIGHT LEG INTENSITY OF PAIN (SCALE OF 1 TO 10):6 WHAT DOES YOUR PAIN FEEL LIKE:SHARP, STABBING, THROBBING, SHOOTING DURATION:CONTINOUS, ALL DAY PAIN IS INCREASED BY:ACTIVITIES, PROLONGED STANDING, OTHERS WALKING, PROLONGED SITTING, LAYING DOWN PAIN IS DECREASED BY:OTHERS TIZANDINE NURSING NOTE: -. PAIN CENTER INTAKE QUESTIONS: DO YOU HAVE A HISTORY OF MRSA? :NO DO YOU TAKE A BLOOD THINNERS? :NO DO YOU HAVE ANY BLEEDING DISORDERS? :NO ANY NEW NUMBNESS OR WEAKNESS IN YOUR LEGS OR ARMS? :NO ANY PACEMAKER,DEFIBRILLATOR, OR DORSAL COLUMN STIMULATOR? :YES DCS DO YOU HAVE ANY RASHES OR OPEN SORES? :NO ARE YOU ALLERGIC TO IV DYE? :NO ARE YOU DIABETIC? :NO ANY NEW PROBLEMS WITH YOUR MEDICATIONS? :NO HAVE YOU RECEIVED A VACCINE IN THE PAST 30 DAYS? :NO DO YOU PLAN TO RECEIVE A VACCINE IN THE NEXT 21 DAYS? :NO DO YOU NEED ANY PRESCRIPTION? :YES TIZANIDINE, TRAMADOL, NUCYNTA, AND GABAPENTIN DO YOU TAKE ANY IMMUNOSUPPRESSIVE MEDICATIONS? :YES ALLOPURINOL AND COLCHICINE IS THERE A CHANCE YOU COULD BE ? :NO ARE YOU BREAST FEEDING? :NO CURRENT MEDICATIONS TAKING ALLOPURINOL 300 MG TABLET 2 TABLET ORALLY ONCE A DAY TAKING COLCHICINE 0.6 MG TABLET ONE TAB ORALLY EVERY 12 HOURS PRN PAIN TAKING VITAMIN D (ERGOCALCIFEROL) 49755 UNIT CAPSULE 1 CAPSULE ORALLY WEEKLY TAKING NUCYNTA ER 50 MG TABLET EXTENDED RELEASE 12 HOUR 1 TABLET ORALLY EVERY 12 HRS MDD2 TAKING TRAMADOL HCL 50 MG TABLET 1 TABLET NEEDED ORALLY Q8H PRN MDD3 TAKING NUCYNTA ER 50 MG TABLET EXTENDED RELEASE 12 HOUR 1 TABLET ORALLY EVERY 12 HRS MDD2 TAKING TIZANIDINE HCL 4 MG TABLET 1 TABLET NEEDED ORALLY FOR SPASMS AND PAIN AT BEDTIME MAY REPEAT IN 5 HRS MDD2 TAKING GABAPENTIN 400 MG CAPSULE 1 CAPSULE ORALLY BID TAKING ESCITALOPRAM OXALATE 20 MG TABLET 1 TABLET ORALLY ONCE A DAY TAKING PRAZOSIN HCL 2 MG CAPSULE 2 CAPSULES AT BEDTIME ORALLY ONCE A DAY NOT-TAKING MAY USE MEDICAL MARIJUANA NOT-TAKING BUTRANS 10 MCG/HR PATCH WEEKLY 1 PATCH TO SKIN TRANSDERMAL [id number] NOT-TAKING NUCYNTA ER 100 MG TABLET EXTENDED RELEASE 12 HOUR 1 TABLET ORALLY EVERY 12 HRS MDD2 NOT-TAKING PERCOCET 10-325 MG TABLET 1 TABLET NEEDED ORALLY BID MEDICATION LIST REVIEWED AND RECONCILED WITH THE PATIENT PAST MEDICAL HISTORY CHRONIC LOW BACK PAIN GOUT SLEEP APNEA WITH CPAP REFLUX PTSD HIP PAIN -BILATERAL AVASCULAR NECROSIS BILAT HIPS DX 03/2018 KIDNEY STONE UMBILICAL HERNIA ENLARGED LIVER ALLERGIES AMITRIPTYLINE HCL: DYSPNEA - SIDE EFFECTS SURGICAL HISTORY SPINAL FUSION X 2 2017 TOTAL RIGHT HIP 05/2018 DCS TRIAL 02/2019 PERMANENT DCS 04/2019 FAMILY HISTORY FATHER: ALIVE, DIAGNOSED WITH HYPERTENSION MOTHER: ALIVE, HYPERTENSION PATERNAL GRAND FATHER: OTHER MALIGNANT NEOPLASM OF UNSPECIFIED SITE MATERNAL GRAND FATHER: UNSPECIFIED HEART DISEASE MATERNAL GRAND MOTHER: DIABETES 1 BROTHER(S) , 1 SISTER(S) - HEALTHY. 1 SON(S) - HEALTHY. GRANDFATHER - PROSTATE CANCER. SOCIAL HISTORY GENERAL: TOBACCO USE ARE YOU A:NONSMOKER ADDITIONAL FINDINGS: TOBACCO USERCHEWS TOBACCO ALL DAY LATEX QUESTIONNAIRE LATEX ALLERGY : HAVE YOU EVER DEVELOPED ANY TYPE OF REACTION AFTER HANDLING LATEX PRODUCTS SUCH RUBBER GLOVES, CONDOMS, DIAPHRAGMS, BALLOONS, SOCKS, OR UNDERWEAR?NO LATEX ALLERGY : HAVE YOU EVER DEVELOPED ANY TYPE OF REACTION DURING OR AFTER DENTAL APPOINTMENT, VAGINAL/RECTAL EXAMINATION, SURGICAL PROCEDURE, OR ANY OTHER EXPOSURE?NO LATEX RISK : HAVE YOU EVER HAD ANY DIFFICULTY BREATHING OR HIVES AFTER EATING OR HANDLING ANY FRUITS, OR VEGETABLES; SUCH KIWI, BANANAS, STONE FRUITS, OR CHESTNUTSNO LATEX RISK : DO YOU HAVE A PREVIOUS PERSONAL HISTORY OF MORE THAN NINE SURGERIES, SPINA BIFIDA, OR REPEATED CATHERIZATIONS? NO LATEX RISK : ARE YOU FREQUENTLY EXPOSED TO LATEX PRODUCTS IN YOUR OCCUPATION?NO DATE ASKED : 01/12/2020 ALCOHOL SCREENING DID YOU HAVE A DRINK CONTAINING ALCOHOL IN THE PAST YEAR?YES HOW OFTEN DID YOU HAVE A DRINK CONTAINING ALCOHOL IN THE PAST YEAR?MONTHLY OR LESS (1 POINT) POINTS1 INTERPRETATIONNEGATIVE RECREATIONAL DRUG USE DRUG USE?NO CAFFEINE CAFFEINE USE?YES HOW OFTEN AND HOW MUCH? [employer] ALEVISM [id number] NONE LANGUAGE LANGUAGES SPOKEN:MOZAMBICAN EDUCATION LEVEL OF EDUCATION:COLLEGE LEARNING BARRIERS / SPECIAL NEEDS CHANGE FROM LAST VISIT?NO BARRIERS TO LEARNING?NO HEARING IMPAIRED?NO VISION IMPAIRED?NO COGNITIVELY IMPAIRED?NO READINESS TO LEARN?YES LEARNING PREFERENCES?NO LEARNING CAPABILITIES PRESENT?YES EMOTIONAL BARRIERS?NO SPECIAL DEVICES?NO LUMBER SCALER NEEDED?NO OCCUPATION: DISABLED. DIET: REGULAR. EXERCISE: NO REGULAR EXERCISE. MARITAL STATUS: . OTHERS AT HOME: SPOUSE, CHILD. PAIN CLINIC PFS, CLERGY, PUBLIC HEALTH REFERRALS PFS REFERRAL NEEDED?NO CLERGY REFERRAL NEEDED?NO PUBLIC HEALTH REFERRAL NEEDED?NO WAS THE PROVIDER NOTIFIED OF ANY PERTINENT INFO?YES HAS THE PATIENT BEEN EDUCATED REGARDING HIS/HER PLAN OF CARE?YES HAS THE PATIENT BEEN EDUCATED REGARDING PAIN, THE RISK FOR PAIN, THE IMPORTANCE OF EFFECTIVE PAIN MANAGEMENT, AND THE PAIN ASSESSMENT PROCESS?YES ADVANCE DIRECTIVE ADVANCE DIRECTIVE DISCUSSED WITH PATIENT:YES PT DOES NOT HAVE ANY ADVANCED DIRECTIVES, DECLINES INFORMATION ON HCP AT THIS TIME. HOSPITALIZATION/MAJOR DIAGNOSTIC PROCEDURE SEE ABOVE REVIEW OF SYSTEMS CONSTITUTIONAL: ANY RECENT FEVER NO . CHILLS NO . WEIGHT CHANGE OF UNKNOWN REASONS NO . GASTROENTEROLOGY: NEW UNEXPLAINABLE CHANGES IN BOWEL CONTROL NO . CONSTIPATION NO . GENITOURINARY: ANY NEW CHANGE IN BLADDER CONTROL? NO . NEUROLOGY: NEW ONSET DIZZINESS OR NEUROLOGICAL CHANGES NOT MENTIONED NO . NEW NUMBNESS OR PAIN PATTERNS NOT MENTIONED AND PERTINENT TO TODAY'S VISIT NO . CARDIOLOGY: NEW CHEST PRESSURE NO . NEW CHEST PAIN NO . RESPIRATORY: UNEXPLAINABLE COUGH NO . NEW SHORTNESS OF BREATH NO . VITAL SIGNS WT 239.0 LBS, HT 67 IN, BMI 37.43 INDEX, BP 124/80 MM HG, HR 75 /MIN, RR 18 /MIN, TEMP 98.9 F, OXYGEN SAT % 96%, SAFE IN ENV? (Y/N) Y, NA INITIALS AW 0843, REVIEWED BY: JSJ. MARY JO RN. EXAMINATION GENERAL EXAMINATION: GENERALAWAKE,ALERT ,PLEASANT . PSYCHAFFECT NORMAL . LUNGS:LUNG ALEMAN ARE CLEAR TO AUSCULTATION BILATERALLY. GOOD MOVEMENT OF AIR . HEART:S1, S2 IN A REGULAR RATE AND RHYTHM. NO SIGNIFICANT MURMURS, RUBS OR GALLOPS NOTED . ASSESSMENTS AVASCULAR NECROSIS OF BONE OF RIGHT HIP - M87.051 (PRIMARY) CHRONIC PRESCRIPTION OPIATE USE - Z79.891 TREATMENT AVASCULAR NECROSIS OF BONE OF RIGHT HIP STOP NUCYNTA ER TABLET EXTENDED RELEASE 12 HOUR, 50 MG, 1 TABLET, ORALLY, EVERY 12 HRS MDD2 STOP TRAMADOL HCL TABLET, 50 MG, 1 TABLET NEEDED, ORALLY, Q8H PRN MDD3 START HYDROCODONE-ACETAMINOPHEN TABLET, 7.5-325 MG, 1 TABLET NEEDED, ORALLY, EVERY 6 HRS PRN MDD4, 30 DAYS, 100, REFILLS 0 NOTES: ISTOP REGISTRY REVIEWED AND DEMONSTRATES COMPLLIANCE. BRINGS IN MEDICATIONS WHICH IS APPROPRIATE FOR WHAT WAS DISPENSED. RECENT URINE TOXICOLOGY REVIEWED. NO UNAUTHORIZED MEDICATIONS. NO ILLICIT SUBSTANCES AND PRESCRIBED MEDICATIONS WERE PRESENT. URINE TOXICOLOGY TODAY GET MRI OF LS-SPINE DONE FROM [facility] TO REVIEW. CONTACT CHINMAY FROM [employer] TO HAVE HIM PRESENT DURING FOLLOW-UP WITH DR. GONSALVES REGARDING DORSAL COLUMN STIMULATOR ISSUES. , RISKS OF NARCOTIC/OPIOD MEDICATIONS INCLUDES BUT IS NOT LIMITED TO RISK OF DEPENDANCE/DEVELOPMENT OF ADDICTION, MOOD DISTURBANCE AND DEPRESSION, OSTEOPOROSIS, HORMONAL AND LABIDAL CHANGES, RESPIRATORY DEPRESSION AND . PATIENT IS ADVISED NOT TO DRIVE OR DRINK ALCOHOL WHILE ON THESE MEDICATIONS 06/14/2020 PATIENT GIVEN INFORMATION ON NEW MEDICATION, HYDROCODONE. Tiffanie CAMARGO RN. PROCEDURE CODES FA211 ESTABILISHED PATIENT [facility] FACILITY CHARGE DISPOSITION & COMMUNICATION FOLLOW UP 2MOS MED MGMNBELLE/DR GONSALVES ON DAY CHINMAY-[employer] IS HERE (REASON: RIGHT HIP PAIN/PROBLEMS WITH DCS) ELECTRONICALLY SIGNED BY BENITA HOOKER ON 06/14/2020 AT 11:49 AM EST DISCLAIMER : THIS IS A VISIT SUMMARY EXTRACTED FROM THE [employer] CHART. IT IS NOT A COPY OF THE [employer] PROGRESS NOTE. ESTHER
== END ==
LOC: M PAIN 09:00
PROVIDERS: ATTEND Nurse Practitioner Family
DX: M87.051 Idiopathic aseptic necrosis of right femur (principal); G89.29 Other chronic pain; G47.30 Sleep apnea, unspecified; F17.290 Nicotine dependence, other tobacco product, uncomplicated; Z96.89 Presence of other specified functional implants; Z86.59 Personal history of other mental and behavioral disorders; Z96.641 Presence of right artificial hip joint; Z88.8 Allergy status to other drugs, medicaments and biological substances; Z79.891 Long term (current) use of opiate analgesic; Z79.899 Other long term (current) drug therapy

== ENCOUNTER → 2020-07-23 | Outpatient (CLI) | payer OTHER, MEDICARE ==
--- NOTE | 2020-07-27 00:54 | ECWPNPC ---
PATIENT NAME: ISADORA MOLINA : 1985 GENDER: MALE VISIT DATE: 07/23/2020 DISCHARGE DATE: 07/23/20 1518 VISIT LOCKED DATE TIME: PHYSICIAN: SHE GONSALVES MD RESOURCE: SHE GONSALVES MD REASON FOR APPOINTMENT 1. RIGHT HIP PAIN/PROBLEMS WITH DCS HISTORY OF PRESENT ILLNESS GENERAL: -. 35-YEAR-OLD MALE PATIENT WITH A HISTORY OF CHRONIC LOW BACK PAIN. HE HAS BEEN SUFFERING FORM THIS CONDITION FOR MANY YEARS. HE HAS HISTORY OF 2 BACK SURGERIES WITH DISC REPLACEMENT AND A HIP SURGERY. THE PATIENT HAS A HISTORY OF AVASCULAR NECROSIS OVER THE RIGHT HIP. THE PAIN HAS BEEN AFFECTING HIS ABILITIES TO CLEAN HIS HOUSE AND DO GROCERIES. THE PATIENT DESCRIBES THE PAIN SHARP, SHOOTING AND THROBBING WITH A PAIN SCORE RANGING FROM 6-9/10. THE PAIN HAS INCREASED SIGNIFICANTLY DURING THE LAST MONTH AT THE RIGHT LOWER BACK AREA. HE HAS TRIED MEDICATIONS BUT THE PAIN HAS PERSISTS. FALL RISK SCREENING: SCREENING :NO FALLS REPORTED IN THE LAST YEAR PAIN SCREENING: PATIENT HAS A COMPLAINT OF ACUTE OR CHRONIC PAIN :YES LOCATION OF PAIN:LOW BACK, LEG(S) RIGHT SIDE OF BACK AND RIGHT LEG INTENSITY OF PAIN (SCALE OF 1 TO 10):6 WHAT DOES YOUR PAIN FEEL LIKE:SHARP, STABBING, THROBBING, SHOOTING DURATION:CONTINOUS, ALL DAY, AWAKENS FROM SLEEP PAIN IS INCREASED BY:ACTIVITIES, PROLONGED STANDING, OTHERS WALKING, PROLONGED SITTING, LAYING DOWN PAIN IS DECREASED BY:OTHERS TIZANDINE, OPIOIDS TREATMENT/MEDICATIONS USED TO MANAGE PAIN:OPIOIDS LEVEL OF RELIEF FROM PAIN TREATMENTS IN THE PAST:50% PAIN HAS INTERFERED WITH THE FOLLOWING:BATHING/DRESSING, MOOD, WALKING ABILITY, EMPLOYMENT, HOUSEWORK, SLEEP, RELATIONSHIP WITH OTHERS, ENJOYMENT OF LIFE, TRANSPORTATION, FOOD PREPARATION PLAN/GOALS/TREATMENT/INTERVENTION/FOLLOW UP:SEE PLAN PAIN CENTER INTAKE QUESTIONS: DO YOU HAVE A HISTORY OF MRSA? :NO DO YOU TAKE A BLOOD THINNERS? :NO DO YOU HAVE ANY BLEEDING DISORDERS? :NO ANY NEW NUMBNESS OR WEAKNESS IN YOUR LEGS OR ARMS? :YES RIGHT HAND NUMBNESS/ TINGLING IN TRIGGER FINGER/ POINTER FINGER. ANY PACEMAKER,DEFIBRILLATOR, OR DORSAL COLUMN STIMULATOR? :YES DCS DO YOU HAVE ANY RASHES OR OPEN SORES? :NO ARE YOU ALLERGIC TO IV DYE? :NO ARE YOU DIABETIC? :NO ANY NEW PROBLEMS WITH YOUR MEDICATIONS? :NO HAVE YOU RECEIVED A VACCINE IN THE PAST 30 DAYS? :NO DO YOU PLAN TO RECEIVE A VACCINE IN THE NEXT 21 DAYS? :NO DO YOU NEED ANY PRESCRIPTION? :NO DO YOU TAKE ANY IMMUNOSUPPRESSIVE MEDICATIONS? :YES ALLOPURINOL AND COLCHICINE IS THERE A CHANCE YOU COULD BE ? :NO ARE YOU BREAST FEEDING? :NO CURRENT MEDICATIONS TAKING ALLOPURINOL 300 MG TABLET 2 TABLET ORALLY ONCE A DAY TAKING COLCHICINE 0.6 MG TABLET ONE TAB ORALLY EVERY 12 HOURS PRN PAIN TAKING VITAMIN D (ERGOCALCIFEROL) 36439 UNIT CAPSULE 1 CAPSULE ORALLY WEEKLY TAKING ESCITALOPRAM OXALATE 20 MG TABLET 1 TABLET ORALLY ONCE A DAY TAKING PRAZOSIN HCL 2 MG CAPSULE 2 CAPSULES AT BEDTIME ORALLY ONCE A DAY TAKING TIZANIDINE HCL 4 MG TABLET 1 TABLET NEEDED ORALLY FOR SPASMS AND PAIN AT BEDTIME MAY REPEAT IN 5 HRS MDD2 TAKING GABAPENTIN 400 MG CAPSULE 1 CAPSULE ORALLY BID TAKING HYDROCODONE-ACETAMINOPHEN 7.5-325 MG TABLET 1 TABLET NEEDED ORALLY EVERY 6 HRS PRN MDD4 NOT-TAKING NUCYNTA ER 50 MG TABLET EXTENDED RELEASE 12 HOUR 1 TABLET ORALLY EVERY 12 HRS MDD2 NOT-TAKING MAY USE MEDICAL MARIJUANA NOT-TAKING BUTRANS 10 MCG/HR PATCH WEEKLY 1 PATCH TO SKIN TRANSDERMAL [id number] NOT-TAKING NUCYNTA ER 100 MG TABLET EXTENDED RELEASE 12 HOUR 1 TABLET ORALLY EVERY 12 HRS MDD2 NOT-TAKING PERCOCET 10-325 MG TABLET 1 TABLET NEEDED ORALLY BID MEDICATION LIST REVIEWED AND RECONCILED WITH THE PATIENT PAST MEDICAL HISTORY CHRONIC LOW BACK PAIN GOUT SLEEP APNEA WITH CPAP REFLUX PTSD HIP PAIN -BILATERAL AVASCULAR NECROSIS BILAT HIPS DX 03/2018 KIDNEY STONE UMBILICAL HERNIA ENLARGED LIVER ALLERGIES AMITRIPTYLINE HCL: DYSPNEA - SIDE EFFECTS SURGICAL HISTORY SPINAL FUSION X 2 2017 TOTAL RIGHT HIP 05/2018 DCS TRIAL 02/2019 PERMANENT DCS 04/2019 UMBILICAL HERNIA REPAIR 07/30/20 SOCIAL HISTORY GENERAL: TOBACCO USE ARE YOU A:NONSMOKER ADDITIONAL FINDINGS: TOBACCO USERCHEWS TOBACCO ALL DAY VAPORNO E-CIGARETTENO LATEX QUESTIONNAIRE LATEX ALLERGY : HAVE YOU EVER DEVELOPED ANY TYPE OF REACTION AFTER HANDLING LATEX PRODUCTS SUCH RUBBER GLOVES, CONDOMS, DIAPHRAGMS, BALLOONS, SOCKS, OR UNDERWEAR?NO LATEX ALLERGY : HAVE YOU EVER DEVELOPED ANY TYPE OF REACTION DURING OR AFTER DENTAL APPOINTMENT, VAGINAL/RECTAL EXAMINATION, SURGICAL PROCEDURE, OR ANY OTHER EXPOSURE?NO DATE ASKED : 01/12/2020 LATEX RISK : HAVE YOU EVER HAD ANY DIFFICULTY BREATHING OR HIVES AFTER EATING OR HANDLING ANY FRUITS, OR VEGETABLES; SUCH KIWI, BANANAS, STONE FRUITS, OR CHESTNUTSNO LATEX RISK : DO YOU HAVE A PREVIOUS PERSONAL HISTORY OF MORE THAN NINE SURGERIES, SPINA BIFIDA, OR REPEATED CATHERIZATIONS? NO LATEX RISK : ARE YOU FREQUENTLY EXPOSED TO LATEX PRODUCTS IN YOUR OCCUPATION?NO ALCOHOL USE: YES; LITTLE TO NONE. ALCOHOL SCREENING DID YOU HAVE A DRINK CONTAINING ALCOHOL IN THE PAST YEAR?YES HOW OFTEN DID YOU HAVE A DRINK CONTAINING ALCOHOL IN THE PAST YEAR?MONTHLY OR LESS (1 POINT) POINTS1 INTERPRETATIONNEGATIVE RECREATIONAL DRUG USE DRUG USE?NO CAFFEINE CAFFEINE USE?YES HOW OFTEN AND HOW MUCH? [employer] [id number] NONE LANGUAGE LANGUAGES SPOKEN:[place] EDUCATION LEVEL OF EDUCATION:COLLEGE LEARNING BARRIERS / SPECIAL NEEDS CHANGE FROM LAST VISIT?NO BARRIERS TO LEARNING?NO HEARING IMPAIRED?NO VISION IMPAIRED?NO COGNITIVELY IMPAIRED?NO READINESS TO LEARN?YES LEARNING PREFERENCES?NO LEARNING CAPABILITIES PRESENT?YES EMOTIONAL BARRIERS?NO SPECIAL DEVICES?NO BSS SOLUTION ARCHITECT NEEDED?NO OCCUPATION: DISABLED. DIET: REGULAR. EXERCISE: NO REGULAR EXERCISE. MARITAL STATUS: . OTHERS AT HOME: SPOUSE, CHILD. - PFS REFERRAL NEEDED?NO CLERGY REFERRAL NEEDED?NO PUBLIC HEALTH REFERRAL NEEDED?NO WAS THE PROVIDER NOTIFIED OF ANY PERTINENT INFO?YES HAS THE PATIENT BEEN EDUCATED REGARDING HIS/HER PLAN OF CARE?YES HAS THE PATIENT BEEN EDUCATED REGARDING PAIN, THE RISK FOR PAIN, THE IMPORTANCE OF EFFECTIVE PAIN MANAGEMENT, AND THE PAIN ASSESSMENT PROCESS?YES ADVANCE DIRECTIVE ADVANCE DIRECTIVE DISCUSSED WITH PATIENT:YES PT DOES NOT HAVE ANY ADVANCED DIRECTIVES, DECLINES INFORMATION ON HCP AT THIS TIME. HOSPITALIZATION/MAJOR DIAGNOSTIC PROCEDURE SEE ABOVE REVIEW OF SYSTEMS CONSTITUTIONAL: ANY RECENT FEVER NO . CHILLS NO . WEIGHT CHANGE OF UNKNOWN REASONS NO . GASTROENTEROLOGY: NEW UNEXPLAINABLE CHANGES IN BOWEL CONTROL NO . CONSTIPATION NO . GENITOURINARY: ANY NEW CHANGE IN BLADDER CONTROL? NO . NEUROLOGY: NEW ONSET DIZZINESS OR NEUROLOGICAL CHANGES NOT MENTIONED NO . NEW NUMBNESS OR PAIN PATTERNS NOT MENTIONED AND PERTINENT TO TODAY'S VISIT NO . CARDIOLOGY: NEW CHEST PRESSURE NO . NEW CHEST PAIN NO . RESPIRATORY: UNEXPLAINABLE COUGH NO . NEW SHORTNESS OF BREATH NO . VITAL SIGNS WT 241.4 LBS, HT 67 IN, BMI 37.80 INDEX, BP 131/78 MM HG, HR 68 /MIN, RR 18 /MIN, TEMP 98.7 F, OXYGEN SAT % 94%, SAFE IN ENV? (Y/N) YES, NA INITIALS SC 14:24, REVIEWED BY: Jared NUÑEZ RN BSN. EXAMINATION GENERAL EXAMINATION: THE PATIENT IS ALERT, ORIENTED TIMES THREE AND COOPERATIVE. LUNGS ARE CLEAR TO AUSCULTATION. HEART SHOWS REGULAR RHYTHM, NO MURMURS AND NO GALLOPS. THERE IS TENDERNESS OVER THE RIGHT LUMBAR FACETS OVER THE RIGHT LOWER BACK AREA. MRI OF THE LUMBAR SPINE DATED 04/19/2020 SHOWS POSTOPERATIVE CHANGES. ASSESSMENTS SPONDYLOSIS OF LUMBAR REGION WITHOUT MYELOPATHY OR RADICULOPATHY - M47.816 (PRIMARY) SPONDYLOSIS WITHOUT MYELOPATHY OR RADICULOPATHY, LUMBOSACRAL REGION - M47.817 LUMBAR POST-LAMINECTOMY SYNDROME - M96.1 TREATMENT SPONDYLOSIS OF LUMBAR REGION WITHOUT MYELOPATHY OR RADICULOPATHY NOTES: 07/23/20 1520 PRE-PROCEDURE INSTRUCTIONS GIVEN TO PATIENT, REQUEST FAX ELECTRONICALLY SENT TO [place], TO HOLD ALLOPURINOL. Jared NUÑEZ RN BSN. CLINICAL NOTES: I DISCUSSED ALTERNATIVES WITH MR. MOLINA. I WILL REQUEST A RIGHT THERAPEUTIC LUMBAR FACET BLOCK L4-L5, L5-S1, FOR THE ACUTE PAIN EXACERBATION, BOOK AFTER APPROVED. THE PATIENT HAS A HISTORY OF AVASCULAR NECROSIS SO WE HAD THE CONVERSATION ABOUT THE STEROIDS. IF HE DOES NOT GET LONG LASTING PAIN RELIEF FROM THIS, WE CAN DISCUSS RADIOFREQUENCY. THE PATIENT REPORTS UNDERSTANDING AND AGREES WITH THE PLAN. I, CORNELL TROY, DOCUMENTED THE ABOVE INFORMATION ACTING A SCRIBE FOR DR. GONSALVES. I HAVE REVIEWED THE ABOVE DOCUMENT, WRITTEN BY CORNELL TROY, WAREHOUSE REPRESENTATIVE, AND I VERIFY THAT IT IS ACCURATE. . PROCEDURE CODES 18375 OFFICE/OUTPATIENT VISIT EST FA211 ESTABILISHED PATIENT [facility] FACILITY CHARGE DISPOSITION & COMMUNICATION FOLLOW UP REQUEST AUTH FOR RIGHT THERAPEUTIC LUMBAR FACET BLOCK L4-L5, L5-S1 (REASON: REQUEST AUTH FOR RIGHT THERAPEUTIC LUMBAR FACET BLOCK L4-L5, L5-S1) ELECTRONICALLY SIGNED BY SHE GONSALVES MD, MD ON 07/26/2020 AT 03:09 PM EST DISCLAIMER : THIS IS A VISIT SUMMARY EXTRACTED FROM THE [employer] CHART. IT IS NOT A COPY OF THE [facility] PROGRESS NOTE. [facility]
== END ==
LOC: M PAIN 14:15
PROVIDERS: ATTEND Anesthesiology
DX: M47.816 Spondylosis without myelopathy or radiculopathy, lumbar region (principal); M47.817 Spondylosis without myelopathy or radiculopathy, lumbosacral region; M96.1 Postlaminectomy syndrome, not elsewhere classified; M10.9 Gout, unspecified; G47.30 Sleep apnea, unspecified; K21.9 Gastro-esophageal reflux disease without esophagitis; F43.10 Post-traumatic stress disorder, unspecified; M25.551 Pain in right hip; M25.552 Pain in left hip; F17.220 Nicotine dependence, chewing tobacco, uncomplicated; Z79.891 Long term (current) use of opiate analgesic; Z79.899 Other long term (current) drug therapy; Z88.8 Allergy status to other drugs, medicaments and biological substances

== ENCOUNTER → 2020-08-11 | Outpatient (CLI) | payer OTHER, MEDICARE | LOC: M LABSMTC 13:23 | PROVIDERS: ATTEND Anesthesiology | DX: Z20.822 Contact with and (suspected) exposure to COVID-19 (principal) ==

== ENCOUNTER → 2020-08-16 | Outpatient (CLI) | payer OTHER, MEDICARE ==
[~2020-08-16] MED LIST changes: +BUPIVACAINE HCL 0.25% 30ML VIAL As Ordered ONE; +ISOVUE-M 300 61% 15ML VIAL As Ordered ONE; +LIDOCAINE 1% SDV 30ML VIAL As Ordered ONE; +TRIAMCINOLONE ACETONIDE SUSP 40 MG/ML VIAL (J3301) As Ordered ONE; +diazePAM 5MG TABLET As Ordered ONE; +oxyCODONE 5MG TAB As Ordered ONE
--- NOTE | 2020-08-16 16:49 | REP ---
INDICATION: RIGHT LUMBAR FACET. COMPARISON: None. TECHNIQUE: Two C-arm views lower lumbar spine. FINDINGS: Three needles are seen overlying the right lower lumbar facet joints. There are also pedicle screws and posterior fusion rods at these levels. IMPRESSION: 22 seconds fluoroscopy time utilized. <Electronically signed by Lc Early > 08/16/20 [id number]
--- NOTE | 2020-08-19 01:40 | ECWPNPC ---
PATIENT NAME: ISADORA MOLINA : 1985 GENDER: MALE VISIT DATE: 08/16/2020 DISCHARGE DATE: 08/16/20 1318 VISIT LOCKED DATE TIME: PHYSICIAN: SHE GONSALVES MD RESOURCE: SHE GONSALVES MD REASON FOR APPOINTMENT 1. RIGHT THERAPEUTIC LUMBAR FACET BLOCK L4-L5, L5-S1 HISTORY OF PRESENT ILLNESS PAIN CENTER INTAKE QUESTIONS: DO YOU HAVE A HISTORY OF MRSA? :NO DO YOU TAKE A BLOOD THINNERS? :NO DO YOU HAVE ANY BLEEDING DISORDERS? :NO ANY NEW NUMBNESS OR WEAKNESS IN YOUR LEGS OR ARMS? :NO ANY PACEMAKER,DEFIBRILLATOR, OR DORSAL COLUMN STIMULATOR? :YES PT HAS A DCS DO YOU HAVE ANY RASHES OR OPEN SORES? :NO PT DID HAVE HERNIA REPAIR 07-30-2020 DR GONSALVES AWARE ARE YOU ALLERGIC TO IV DYE? :NO ARE YOU DIABETIC? :NO ANY NEW PROBLEMS WITH YOUR MEDICATIONS? :NO HAVE YOU RECEIVED A VACCINE IN THE PAST 30 DAYS? :NO DO YOU PLAN TO RECEIVE A VACCINE IN THE NEXT 21 DAYS? :NO DO YOU TAKE ANY IMMUNOSUPPRESSIVE MEDICATIONS? :NO ANY HISTORY OF SEIZURES? :NO ANY HISTORY OF CARDIAC ISSUES OR EVENTS? :NO DO YOU HAVE SLEEP APNEA? :YES DO YOU WEAR A CPAP?YES ANY RECENT HEAD INJURY? :NO DO YOU HAVE ANY NEW INFECTIONS? :NO IS THERE A CHANCE YOU COULD BE ? :NO ARE YOU BREAST FEEDING? :NO WHEN DID YOU LAST EAT? : 1900 08/15/20 WHEN DID YOU LAST DRINK? : 1030 WHAT DID YOU LAST DRINK? : WATER NAME OF PERSON DRIVING YOU HOME? : JACKIE DO YOU HAVE ANY OTHER QUESTIONS OR CONCERNS? : - GENERAL: -. FALL RISK SCREENING: SCREENING :NO FALLS REPORTED IN THE LAST YEAR PAIN SCREENING: PATIENT HAS A COMPLAINT OF ACUTE OR CHRONIC PAIN :YES LOCATION OF PAIN:RIGHT HIP, LOW BACK INTENSITY OF PAIN (SCALE OF 1 TO 10):8 WHAT DOES YOUR PAIN FEEL LIKE:BURNING, CONTINOUS, TENDER, THROBBING PAIN IS INCREASED BY:PROLONGED STANDING NURSING NOTE: -. CURRENT MEDICATIONS TAKING ALLOPURINOL 300 MG TABLET 2 TABLET ORALLY ONCE A DAY, NOTES: 08/13/20 TAKING COLCHICINE 0.6 MG TABLET ONE TAB ORALLY EVERY 12 HOURS PRN PAIN, NOTES: OVER 2 WEEKS TAKING VITAMIN D (ERGOCALCIFEROL) 72363 UNIT CAPSULE 1 CAPSULE ORALLY WEEKLY TAKING ESCITALOPRAM OXALATE 20 MG TABLET 1 TABLET ORALLY ONCE A DAY TAKING PRAZOSIN HCL 2 MG CAPSULE 2 CAPSULES AT BEDTIME ORALLY ONCE A DAY TAKING TIZANIDINE HCL 4 MG TABLET 1 TABLET NEEDED ORALLY FOR SPASMS AND PAIN AT BEDTIME MAY REPEAT IN 5 HRS MDD2, NOTES: 209908/15/20 TAKING GABAPENTIN 400 MG CAPSULE 1 CAPSULE ORALLY BID TAKING HYDROCODONE-ACETAMINOPHEN 7.5-325 MG TABLET 1 TABLET NEEDED ORALLY EVERY 6 HRS PRN MDD4, NOTES: 209908/15/20 NOT-TAKING NUCYNTA ER 50 MG TABLET EXTENDED RELEASE 12 HOUR 1 TABLET ORALLY EVERY 12 HRS MDD2 NOT-TAKING MAY USE MEDICAL MARIJUANA NOT-TAKING BUTRANS 10 MCG/HR PATCH WEEKLY 1 PATCH TO SKIN TRANSDERMAL [id number] NOT-TAKING NUCYNTA ER 100 MG TABLET EXTENDED RELEASE 12 HOUR 1 TABLET ORALLY EVERY 12 HRS MDD2 NOT-TAKING PERCOCET 10-325 MG TABLET 1 TABLET NEEDED ORALLY BID MEDICATION LIST REVIEWED AND RECONCILED WITH THE PATIENT PAST MEDICAL HISTORY CHRONIC LOW BACK PAIN GOUT SLEEP APNEA WITH CPAP REFLUX PTSD HIP PAIN -BILATERAL AVASCULAR NECROSIS BILAT HIPS DX 03/2018 KIDNEY STONE UMBILICAL HERNIA ENLARGED LIVER ALLERGIES AMITRIPTYLINE HCL: DYSPNEA - SIDE EFFECTS SURGICAL HISTORY SPINAL FUSION X 2 2017 TOTAL RIGHT HIP 05/2018 DCS TRIAL 02/2019 PERMANENT DCS 04/2019 UMBILICAL HERNIA REPAIR 07/30/20 SOCIAL HISTORY GENERAL: TOBACCO USE ARE YOU A:NONSMOKER ADDITIONAL FINDINGS: TOBACCO USERCHEWS TOBACCO ALL DAY VAPORNO E-CIGARETTENO LATEX QUESTIONNAIRE LATEX ALLERGY : HAVE YOU EVER DEVELOPED ANY TYPE OF REACTION AFTER HANDLING LATEX PRODUCTS SUCH RUBBER GLOVES, CONDOMS, DIAPHRAGMS, BALLOONS, SOCKS, OR UNDERWEAR?NO LATEX ALLERGY : HAVE YOU EVER DEVELOPED ANY TYPE OF REACTION DURING OR AFTER DENTAL APPOINTMENT, VAGINAL/RECTAL EXAMINATION, SURGICAL PROCEDURE, OR ANY OTHER EXPOSURE?NO LATEX RISK : HAVE YOU EVER HAD ANY DIFFICULTY BREATHING OR HIVES AFTER EATING OR HANDLING ANY FRUITS, OR VEGETABLES; SUCH KIWI, BANANAS, STONE FRUITS, OR CHESTNUTSNO LATEX RISK : DO YOU HAVE A PREVIOUS PERSONAL HISTORY OF MORE THAN NINE SURGERIES, SPINA BIFIDA, OR REPEATED CATHERIZATIONS? NO LATEX RISK : ARE YOU FREQUENTLY EXPOSED TO LATEX PRODUCTS IN YOUR OCCUPATION?NO DATE ASKED : 01/12/2020 ALCOHOL USE: YES; LITTLE TO NONE. ALCOHOL SCREENING DID YOU HAVE A DRINK CONTAINING ALCOHOL IN THE PAST YEAR?YES HOW OFTEN DID YOU HAVE A DRINK CONTAINING ALCOHOL IN THE PAST YEAR?MONTHLY OR LESS (1 POINT) POINTS1 INTERPRETATIONNEGATIVE RECREATIONAL DRUG USE DRUG USE?NO CAFFEINE CAFFEINE USE?YES HOW OFTEN AND HOW MUCH? [employer] [id number] NONE LANGUAGE LANGUAGES SPOKEN:GRENADIAN EDUCATION LEVEL OF EDUCATION:COLLEGE LEARNING BARRIERS / SPECIAL NEEDS CHANGE FROM LAST VISIT?NO BARRIERS TO LEARNING?NO HEARING IMPAIRED?NO VISION IMPAIRED?NO COGNITIVELY IMPAIRED?NO READINESS TO LEARN?YES LEARNING PREFERENCES?NO LEARNING CAPABILITIES PRESENT?YES EMOTIONAL BARRIERS?NO SPECIAL DEVICES?NO DIGITAL PRESS OPERATOR NEEDED?NO OCCUPATION: DISABLED. DIET: REGULAR. EXERCISE: NO REGULAR EXERCISE. MARITAL STATUS: . OTHERS AT HOME: SPOUSE, CHILD. - PFS REFERRAL NEEDED?NO CLERGY REFERRAL NEEDED?NO PUBLIC HEALTH REFERRAL NEEDED?NO WAS THE PROVIDER NOTIFIED OF ANY PERTINENT INFO?YES HAS THE PATIENT BEEN EDUCATED REGARDING HIS/HER PLAN OF CARE?YES HAS THE PATIENT BEEN EDUCATED REGARDING PAIN, THE RISK FOR PAIN, THE IMPORTANCE OF EFFECTIVE PAIN MANAGEMENT, AND THE PAIN ASSESSMENT PROCESS?YES ADVANCE DIRECTIVE ADVANCE DIRECTIVE DISCUSSED WITH PATIENT:YES PT DOES NOT HAVE ANY ADVANCED DIRECTIVES, DECLINES INFORMATION ON HCP AT THIS TIME. HOSPITALIZATION/MAJOR DIAGNOSTIC PROCEDURE SEE ABOVE VITAL SIGNS WT 244.2 LBS, HT 67 IN, BMI 38.24 INDEX, BP 156/78 MM HG, HR 88 /MIN, RR 18 /MIN, TEMP 96.4 F, OXYGEN SAT % 94%, SAFE IN ENV? (Y/N) YES, NA INITIALS AW 1122, REVIEWED BY: APA. ALYSHA RN. EXAMINATION GENERAL EXAMINATION: THE PATIENT IS ALERT, ORIENTED TIMES THREE AND COOPERATIVE. LUNGS ARE CLEAR TO AUSCULTATION. HEART SHOWS REGULAR RHYTHM, NO MURMURS AND NO GALLOPS. ASSESSMENTS SPONDYLOSIS OF LUMBAR REGION WITHOUT MYELOPATHY OR RADICULOPATHY - M47.816 (PRIMARY) SPONDYLOSIS WITHOUT MYELOPATHY OR RADICULOPATHY, LUMBOSACRAL REGION - M47.817 TREATMENT SPONDYLOSIS OF LUMBAR REGION WITHOUT MYELOPATHY OR RADICULOPATHY [facility] FACET BLOCK (PAIN)[id number] MEDICATION: VALIUM TAB 10MG ORALLY (DIAZEPAM)ARABELLA CAMARGO 08/16/2020 11:41:42 AM > VERIFIED. KATIANA ENCARNACION 08/16/2020 11:45:26 AM > ADMINISTERED MEDICATION: OXYCODONE HCL TAB 10MG ORALLYSYMAYRA VARELAIE L 08/16/2020 11:41:58 AM > VERIFIED. PETRKIANA,KATIANA R 08/16/2020 11:45:40 AM > ADMINSTERED COMPLETION OF PROCEDURAL VISIT WHEN MEETS CRITERIAPETRAS,KATIANA R 08/16/2020 1:12:44 PM > CRITERIA MET PROCEDURES PAIN NURSING RECORD PROCEDURE IN ROOM 1206, PHYSICIAN IN ROOM 1246, START 1253, FINISH 1255, PHYSICIAN OUT OF ROOM 1256, OUT OF ROOM 1302, ECG NORMAL SINUS, PATIENT SHIELDED YES, SAFETY STRAP YES, PREP CHLOROPREP Sophia ENCARNACION, RN, DRESSING TEGADERM DR. GONSALVES LOC: PETRAS,KATIANA R 08/16/2020 12:53:57 PM > , 1. ALERT, ORIENTED RESP: PETRAS,KATIANA R 08/16/2020 12:54:00 PM > , 1. REGULAR, NO DYSPNEA COLOR: PETRAS,KATIANA R 08/16/2020 12:54:04 PM > , 1. PINK SKIN: PETRAS,KATIANA R 08/16/2020 12:54:09 PM > , 1. WARM, DRY POSITION: PETRAS,KATIANA R 08/16/2020 12:54:12 PM > , 1. PRONE VITALS: PETRAS,KATIANA R 08/16/2020 12:12:02 PM > 121/88, 70, 16, 94% PETRAS,KATIANA R 08/16/2020 12:14:49 PM > 117/75, 64, 16, 96% PETRAS,KATIANA R 08/16/2020 12:29:29 PM > 123/81, 72, 16, 96% , PETRAS,KATIANA R 08/16/2020 12:47:02 PM > 138/81, 72, 18, 93% , PETRAS,KATIANA R 08/16/2020 1:01:14 PM > 140/87, 71, 16, 94% , PETRAS,KATIANA R 08/16/2020 1:09:52 PM > 165/90, 84, 18, 95% COMPLETION OF PROCEDURE APPOINTMENT: POST PAIN 5, DRESSING SITE DRY AND INTACT, IV N/A, GAIT STEADY, TEACHING COMPLETED, PATIENT ACKNOWLEDGES UNDERSTANDING YES, PROCEDURE APPOINTMENT COMPLETED AT 1311 BY: Sophia ENCARNACION RN PN LUMBAR FACET BLOCK THERAPEUTIC PRE PROCEDURE DIAGNOSIS LUMBAR SPONDYLOSIS, LUMBOSACRAL SPONDYLOSIS POST PROCEDURE DIAGNOSIS LUMBAR SPONDYLOSIS, LUMBOSACRAL SPONDYLOSIS PROCEDURE RIGHT L4-L5 AND RIGHT L5-S1 LUMBAR FACET THERAPEUTIC BLOCK SURGEON DR. SHE GONSALVES LOSS PREVENTION LEAD NONE ANESTHESIA LOCAL PRE PROCEDURE NOTE THE PATIENT HAS A HISTORY OF CHRONIC LOW BACK PAIN. I EVALUATED THE PATIENT AND REVIEWED THE CHART. I WENT OVER THE RISKS, ALTERNATIVES, AND BENEFITS ASSOCIATED WITH THIS PROCEDURE. THE PATIENT WOULD LIKE TO PROCEED AND GIVES CONSENT TO PERFORM THE PROCEDURE. THE PATIENT DENIES UNEXPLAINABLE WEIGHT LOSS, FEVER, CHILLS, OR NEW CHANGES IN URINARY OR BOWEL CONTROL. THE PATIENT IS COVID-19 NEGATIVE DESCRIPTION OF PROCEDURE THE PATIENT WAS BROUGHT TO THE PROCEDURE ROOM AND PLACED IN THE PRONE POSITION. THE LUMBOSACRAL AREA WAS CLEANED WITH CHLORAPREP SOLUTION AND DRAPED ASEPTICALLY. THE PROCEDURE WAS DONE UNDER STERILE CONDITIONS. A TIMEOUT WAS PERFORMED WHERE THE CONSENTED SITE WAS VERIFIED WITH EVERYONE IN THE ROOM. UNDER FLUOROSCOPIC GUIDANCE, THE TARGET POINT WAS SELECTED AT THE RIGHT AND LEFT L4-L5 AND RIGHT AND LEFT L5-S1 FACET JOINTS. TARGET POINT WAS SELECTED AFTER LATERAL ROTATION AND TILT OF THE MAGNIFIER OF THE C-ARM. I CONFIRMED AGAIN THE SITE OF TARGET. LIDOCAINE 0.5% WAS USED TO NUMB THE SKIN AND THE SUBCUTANEOUS TISSUE BELOW IT. SPINAL NEEDLES, 22-GAUGE, WERE ADVANCED UNDER FLUOROSCOPIC GUIDANCE AND FOLLOWING PATIENT FEEDBACK UNTIL THE TARGETS WERE TOUCHED. THE POSITION OF THE NEEDLES WAS VERIFIED WITH AP AND LATERAL VIEWS. AFTER PROPER POSITION OF THE NEEDLES WAS ACHIEVED, ISOVUE-M DYE 30%, 0.1 ML, WAS INJECTED SHOWING ADEQUATE SPREAD OF THE DYE. KENALOG 20 MG WAS INJECTED AT EACH SITE. THEN, A SOLUTION OF 1.0 ML OF BUPIVACAINE 0.125% OF WAS USED TO FLUSH EACH SITE. THE MEDICATION WAS VERIFIED WITH THE NURSE. THERE WAS NO EVIDENCE OF BLOOD, PARESTHESIA OR CEREBROSPINAL FLUID DURING THE PROCEDURE. THE PATIENT WAS SENT TO THE RECOVERY ROOM. THE PATIENT WAS MOVING THE EXTREMITIES AND DOING WELL. THERE WERE NO COMPLICATIONS DURING THE PROCEDURE. ESTIMATED BLOOD LOSS WAS LESS THAN 5 ML. FLUOROSCOPY TIME WAS 21 SECONDS POST PROCEDURE NOTE THE PATIENT WILL BE SEEN IN A FOLLOW UP IN THE NEXT FEW WEEKS. I AM LOOKING FOR LONG LASTING RELIEF FOR THE PATIENT WITH THIS INTERVENTION. INSTRUCTIONS WERE GIVEN, QUESTIONS WERE ANSWERED, AND THE PATIENT EXPRESSED UNDERSTANDING AND AGREES WITH THE PLAN. I, CORNELL TROY, DOCUMENTED THE ABOVE INFORMATION ACTING A SCRIBE FOR DR. GONSALVES. I HAVE REVIEWED THE ABOVE DOCUMENT, WRITTEN BY CORNELL TROY, MERCHANDISE BUYER, AND I VERIFY THAT IT IS ACCURATE PROCEDURE CODES 77564 INJ PARAVERT F JNT L/S 1 LEV, MODIFIERS: [place] [id number] INJ PARAVERT F JNT L/S 2 LEV, MODIFIERS: RT DISPOSITION & COMMUNICATION FOLLOW UP FOLLOW UP WITH DIRECTOR PATIENT (REASON: POST RIGHT THERAPEUTIC LUMBAR FACET BLOCK L4-L5, L5-S1) ELECTRONICALLY SIGNED BY SHE GONSALVES MD, ON 08/18/2020 AT 01:14 PM EST DISCLAIMER : THIS IS A VISIT SUMMARY EXTRACTED FROM THE [employer] CHART. IT IS NOT A COPY OF THE [employer] PROGRESS NOTE. ESTHER
== END ==
LOC: M PAIN 11:20
PROVIDERS: ATTEND Anesthesiology
DX: M47.816 Spondylosis without myelopathy or radiculopathy, lumbar region (principal); M47.817 Spondylosis without myelopathy or radiculopathy, lumbosacral region; G47.30 Sleep apnea, unspecified; F17.220 Nicotine dependence, chewing tobacco, uncomplicated; Z96.89 Presence of other specified functional implants; Z86.59 Personal history of other mental and behavioral disorders; Z96.641 Presence of right artificial hip joint; Z88.8 Allergy status to other drugs, medicaments and biological substances; Z79.899 Other long term (current) drug therapy
CPT/HCPCS: 64493; 64494; J3301; Q9967

== ENCOUNTER → 2020-08-30 | Outpatient (CLI) | payer OTHER, MEDICARE ==
[~2020-08-30] MED LIST changes: -BUPIVACAINE HCL 0.25% 30ML VIAL As Ordered ONE; -ISOVUE-M 300 61% 15ML VIAL As Ordered ONE; -LIDOCAINE 1% SDV 30ML VIAL As Ordered ONE; -TRIAMCINOLONE ACETONIDE SUSP 40 MG/ML VIAL (J3301) As Ordered ONE; -diazePAM 5MG TABLET As Ordered ONE; -oxyCODONE 5MG TAB As Ordered ONE
--- NOTE | 2020-09-04 03:18 | ECWPNPC ---
PATIENT NAME: ISADORA MOLINA : 1985 GENDER: MALE VISIT DATE: 08/30/2020 DISCHARGE DATE: 08/30/20 162 VISIT LOCKED DATE TIME: PHYSICIAN: NICCI BALBUENA RESOURCE: NICCI BALBUENA REASON FOR APPOINTMENT 1. POST RIGHT THERAPEUTIC LUMBAR FACET BLOCK L4-L5, L5-S1 HISTORY OF PRESENT ILLNESS GENERAL: PATIENT IS AGREEABLE TO TELEMED VISIT VIA ZOOM. THIS IS A POST PROCEDURE FOLLOW-UP AND MEDICATION MANAGEMENT VISIT. HE HAD RIGHT L4-5, L5-S1 THERAPEUTIC LUMBAR FACET ON 08/16/2020. REPORTING NO IMPROVEMENT IN PAIN POST PROCEDURE. OVERALL HE HAS BEEN IN AN INCREASED PAIN STATE FOR SEVERAL MONTHS. INJECTIONS ARE NOT HELPING. WE ARE LIMITED ON USING ANY STEROIDS DUE TO HIS AVASCULAR NECROSIS IN HIS HIPS. HE IS AGREEABLE TO SEE A SURGEON TO SEE IF THERE IS A SURGICAL SOLUTION. WE ALSO SHOULD NOTE THAT HE HAS A DORSAL COLUMN STIMULATOR IN AND USES THIS PERIODICALLY BUT UNFORTUNATELY 1 AREA OF HIS PAIN WILL BE COVERED BUT THEN OTHER AREAS GET WORSE. HE ALSO STATES THAT HE HAS TO HAVE IT ON HIGH SETTINGS IN ORDER TO GET ANY RELIEF.-. FALL RISK SCREENING: SCREENING : NO FALLS REPORTED IN THE LAST YEAR. PAIN SCREENING: PATIENT HAS A COMPLAINT OF ACUTE OR CHRONIC PAIN :YES LOCATION OF PAIN:LOW BACK INTENSITY OF PAIN (SCALE OF 1 TO 10):9 WHAT DOES YOUR PAIN FEEL LIKE:ACHING, BURNING, STABBING, TENDER, THROBBING, SHOOTING DURATION:CONTINOUS, CONSTANT, ALL DAY PAIN IS INCREASED BY:ACTIVITIES PAIN IS DECREASED BY:USE OF PAIN MEDICATIONS NURSING NOTE: -. PAIN CENTER INTAKE QUESTIONS: DO YOU HAVE A HISTORY OF MRSA? :NO DO YOU TAKE A BLOOD THINNERS? :NO DO YOU HAVE ANY BLEEDING DISORDERS? :NO ANY NEW NUMBNESS OR WEAKNESS IN YOUR LEGS OR ARMS? :NO ANY PACEMAKER,DEFIBRILLATOR, OR DORSAL COLUMN STIMULATOR? :YES DCS DO YOU HAVE ANY RASHES OR OPEN SORES? :NO ARE YOU ALLERGIC TO IV DYE? :NO ARE YOU DIABETIC? :NO ANY NEW PROBLEMS WITH YOUR MEDICATIONS? :NO HAVE YOU RECEIVED A VACCINE IN THE PAST 30 DAYS? :NO DO YOU PLAN TO RECEIVE A VACCINE IN THE NEXT 21 DAYS? :NO DO YOU NEED ANY PRESCRIPTION? :YES TIZANIDINE, TRAMADOL, NUCYNTA, AND GABAPENTIN DO YOU TAKE ANY IMMUNOSUPPRESSIVE MEDICATIONS? :YES ALLOPURINOL AND COLCHICINE IS THERE A CHANCE YOU COULD BE ? :NO ARE YOU BREAST FEEDING? :NO CURRENT MEDICATIONS TAKING ALLOPURINOL 300 MG TABLET 2 TABLET ORALLY ONCE A DAY TAKING COLCHICINE 0.6 MG TABLET ONE TAB ORALLY EVERY 12 HOURS PRN PAIN TAKING VITAMIN D (ERGOCALCIFEROL) 22985 UNIT CAPSULE 1 CAPSULE ORALLY WEEKLY TAKING ESCITALOPRAM OXALATE 20 MG TABLET 1 TABLET ORALLY ONCE A DAY TAKING PRAZOSIN HCL 2 MG CAPSULE 2 CAPSULES AT BEDTIME ORALLY ONCE A DAY TAKING TIZANIDINE HCL 4 MG TABLET 1 TABLET NEEDED ORALLY FOR SPASMS AND PAIN AT BEDTIME MAY REPEAT IN 5 HRS MDD2 TAKING GABAPENTIN 400 MG CAPSULE 1 CAPSULE ORALLY BID TAKING HYDROCODONE-ACETAMINOPHEN 7.5-325 MG TABLET 1 TABLET NEEDED ORALLY EVERY 6 HRS PRN MDD4 NOT-TAKING NUCYNTA ER 50 MG TABLET EXTENDED RELEASE 12 HOUR 1 TABLET ORALLY EVERY 12 HRS MDD2 NOT-TAKING MAY USE MEDICAL MARIJUANA NOT-TAKING BUTRANS 10 MCG/HR PATCH WEEKLY 1 PATCH TO SKIN TRANSDERMAL [id number] NOT-TAKING NUCYNTA ER 100 MG TABLET EXTENDED RELEASE 12 HOUR 1 TABLET ORALLY EVERY 12 HRS MDD2 NOT-TAKING PERCOCET 10-325 MG TABLET 1 TABLET NEEDED ORALLY BID MEDICATION LIST REVIEWED AND RECONCILED WITH THE PATIENT PAST MEDICAL HISTORY CHRONIC LOW BACK PAIN GOUT SLEEP APNEA WITH CPAP REFLUX PTSD HIP PAIN -BILATERAL AVASCULAR NECROSIS BILAT HIPS DX 03/2018 KIDNEY STONE UMBILICAL HERNIA ENLARGED LIVER ALLERGIES AMITRIPTYLINE HCL: DYSPNEA - SIDE EFFECTS SOCIAL HISTORY GENERAL: TOBACCO USE ARE YOU A:NONSMOKER ADDITIONAL FINDINGS: TOBACCO USERCHEWS TOBACCO ALL DAY VAPORNO E-CIGARETTENO LATEX QUESTIONNAIRE LATEX ALLERGY : HAVE YOU EVER DEVELOPED ANY TYPE OF REACTION AFTER HANDLING LATEX PRODUCTS SUCH RUBBER GLOVES, CONDOMS, DIAPHRAGMS, BALLOONS, SOCKS, OR UNDERWEAR?NO LATEX ALLERGY : HAVE YOU EVER DEVELOPED ANY TYPE OF REACTION DURING OR AFTER DENTAL APPOINTMENT, VAGINAL/RECTAL EXAMINATION, SURGICAL PROCEDURE, OR ANY OTHER EXPOSURE?NO LATEX RISK : HAVE YOU EVER HAD ANY DIFFICULTY BREATHING OR HIVES AFTER EATING OR HANDLING ANY FRUITS, OR VEGETABLES; SUCH KIWI, BANANAS, STONE FRUITS, OR CHESTNUTSNO LATEX RISK : DO YOU HAVE A PREVIOUS PERSONAL HISTORY OF MORE THAN NINE SURGERIES, SPINA BIFIDA, OR REPEATED CATHERIZATIONS? NO LATEX RISK : ARE YOU FREQUENTLY EXPOSED TO LATEX PRODUCTS IN YOUR OCCUPATION?NO DATE ASKED : 08/30/2020 ALCOHOL USE: YES; LITTLE TO NONE. ALCOHOL SCREENING DID YOU HAVE A DRINK CONTAINING ALCOHOL IN THE PAST YEAR?YES HOW OFTEN DID YOU HAVE A DRINK CONTAINING ALCOHOL IN THE PAST YEAR?MONTHLY OR LESS (1 POINT) POINTS1 INTERPRETATIONNEGATIVE RECREATIONAL DRUG USE DRUG USE?NO CAFFEINE CAFFEINE USE?YES HOW OFTEN AND HOW MUCH? 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 DIET: REGULAR. EXERCISE: NO REGULAR EXERCISE. MARITAL STATUS: . OTHERS AT HOME: SPOUSE, CHILD. - PFS REFERRAL NEEDED?NO CLERGY REFERRAL NEEDED?NO PUBLIC HEALTH REFERRAL NEEDED?NO WAS THE PROVIDER NOTIFIED OF ANY PERTINENT INFO?YES HAS THE PATIENT BEEN EDUCATED REGARDING HIS/HER PLAN OF CARE?YES HAS THE PATIENT BEEN EDUCATED REGARDING PAIN, THE RISK FOR PAIN, THE IMPORTANCE OF EFFECTIVE PAIN MANAGEMENT, AND THE PAIN ASSESSMENT PROCESS?YES ADVANCE DIRECTIVE ADVANCE DIRECTIVE DISCUSSED WITH PATIENT:YES PT DOES NOT HAVE ANY ADVANCED DIRECTIVES, DECLINES INFORMATION ON HCP AT THIS TIME. REVIEW OF SYSTEMS CONSTITUTIONAL: ANY RECENT FEVER NO . CHILLS NO . WEIGHT CHANGE OF UNKNOWN REASONS NO . GASTROENTEROLOGY: NEW UNEXPLAINABLE CHANGES IN BOWEL CONTROL NO . CONSTIPATION NO . GENITOURINARY: ANY NEW CHANGE IN BLADDER CONTROL? NO . NEUROLOGY: NEW ONSET DIZZINESS OR NEUROLOGICAL CHANGES NOT MENTIONED NO . NEW NUMBNESS OR PAIN PATTERNS NOT MENTIONED AND PERTINENT TO TODAY'S VISIT NO . CARDIOLOGY: NEW CHEST PRESSURE NO . PATIENT DENIES NO . RESPIRATORY: UNEXPLAINABLE COUGH NO . NEW SHORTNESS OF BREATH NO . VITAL SIGNS WT 244.2 LBS, HT 67 IN, BMI 38.24 INDEX, BP 0 MM HG, HR 0 /MIN, RR 0 /MIN, TEMP 0 F, OXYGEN SAT % 0, SAFE IN ENV? (Y/N) YEST.MARIANN LOMELI. ASSESSMENTS SPONDYLOSIS OF LUMBAR REGION WITHOUT MYELOPATHY OR RADICULOPATHY - M47.816 (PRIMARY) OTHER CHRONIC PAIN - G89.29 POST LAMINECTOMY SYNDROME - M96.1 TREATMENT SPONDYLOSIS OF LUMBAR REGION WITHOUT MYELOPATHY OR RADICULOPATHY REFILL TIZANIDINE HCL TABLET, 4 MG, 1 TABLET NEEDED, ORALLY FOR SPASMS AND PAIN, AT BEDTIME MAY REPEAT IN 5 HRS MDD2, 30 DAYS, 60, REFILLS 2 REFILL GABAPENTIN CAPSULE, 400 MG, 1 CAPSULE, ORALLY, BID, 30 DAYS, 60 CAPSULE, REFILLS 2 REFILL HYDROCODONE-ACETAMINOPHEN TABLET, 7.5-325 MG, 1 TABLET NEEDED, ORALLY, EVERY 6 HRS PRN MDD4, 30 DAYS, 100, REFILLS 0 NOTES: PATIENT HAS BEEN UNCOMFORTABLE FOR QUITE SOME TIME OVER THE PAST FEW YEARS. WE ARE RELUCTANT TO USE STEROID MEDICATION DUE TO PATIENT'S HISTORY OF AVASCULAR NECROSIS BILATERAL HIPS. HAS DORSAL COLUMN STIMULATOR THAT IS SOMEWHAT HELPFUL FOR SPECIFIC AREAS OF PAIN BUT HE HURTS IN SO MANY DIFFERENT AREAS. TODAY WE WILL MAKE A REFERRAL TO [facility]. HISTORY OF 2 LUMBAR SURGERIES. HISTORY OF RIGHT HIP REPLACEMENT. TOTAL TIME SPENT DURING TELEMED VISIT VIA ZOOM WAS APPROXIMATELY 15 MINUTES. [facility] RE[facility]ON:INCREASE IN CHRONIC LOW BACK PAIN OVER THE PAST YEAR THAT DOESN'T IMPROVE WITH INTERVENTIONAL TREATMENT MODALITIES OR DORSAL COLUMN STIMULATOR OR MEDICATIONS. HISTORY OF LUMBAR SURGERY X2. HISTORY OF RIGHT HIP REPLACEMENT. HISTORY OF AVASCULAR NECROSIS BILATERAL HIPS OTHER CHRONIC PAIN PAIN PROCEDURE LOGDATE OF PROCEDURE1PROCEDURE:RIGHT THERAPEUTIC LUMBAR FACET BLOCK L4-L5,L5-S0ZNCVDP OF PRE SEDATEVALIUM 10MG, OXYCODONE 10MGRESULT:INEFFECTIVE DISPOSITION & COMMUNICATION FOLLOW UP 3 MONTHS (REASON: URINE TOXICOLOGY/CHECK ON SOS REFERRAL) ELECTRONICALLY SIGNED BY BENITA HOOKER ON 09/03/2020 AT 12:53 PM EST DISCLAIMER : THIS IS A VISIT SUMMARY EXTRACTED FROM THE [employer] CHART. IT IS NOT A COPY OF THE [employer] PROGRESS NOTE. BLANCAD
== END ==
LOC: M PAIN 14:45 → M TMPAIN 14:45
PROVIDERS: ATTEND Nurse Practitioner Family
DX: M47.816 Spondylosis without myelopathy or radiculopathy, lumbar region (principal); G89.29 Other chronic pain; M96.1 Postlaminectomy syndrome, not elsewhere classified; Z96.89 Presence of other specified functional implants; G47.30 Sleep apnea, unspecified; F17.220 Nicotine dependence, chewing tobacco, uncomplicated; Z86.59 Personal history of other mental and behavioral disorders; Z88.8 Allergy status to other drugs, medicaments and biological substances; Z79.899 Other long term (current) drug therapy

== ENCOUNTER → 2020-12-02 | Outpatient (CLI) | payer OTHER, MEDICARE ==
--- NOTE | 2020-12-05 23:21 | ECWPNPC ---
PATIENT NAME: ISADORA MOLINA : 1985 GENDER: MALE VISIT DATE: 12/02/2020 DISCHARGE DATE: 12/02/20 1147 VISIT LOCKED DATE TIME: PHYSICIAN: NICCI BALBUENA RESOURCE: NICCI BALBUENA REASON FOR APPOINTMENT 1. URINE TOXICOLOGY/CHECK ON SOS REFERRAL HISTORY OF PRESENT ILLNESS GENERAL: HERE FOR FOLLOW-UP OF CHRONIC LOW BACK PAIN AND BILATERAL HIP PAIN WITH HISTORY OF AVASCULAR NECROSIS. REPORTS EPISODES OF RIGHT ANTERIOR THIGH HIP AND LEG PAIN. PAIN IS SEVERE AT TIMES. FINDS CURRENT CHRONIC PAIN MEDICATIONS HELPFUL. DISCUSSED INCREASING GABAPENTIN SHE FINDS THIS VERY HELPFUL. HE WILL BE SEEING A SURGEON AFTER HAVING AN MRI ON HIS LUMBAR SPINE IN THE [facility] FUTURE [facility]. CONTINUES TO USE DORSAL COLUMN STIMULATOR WHICH IS SOMEWHAT HELPFUL. -. FALL RISK SCREENING: SCREENING : NO FALLS REPORTED IN THE LAST YEAR. PAIN SCREENING: PATIENT HAS A COMPLAINT OF ACUTE OR CHRONIC PAIN :YES LOCATION OF PAIN:LOW BACK INTENSITY OF PAIN (SCALE OF 1 TO 10):9 WHAT DOES YOUR PAIN FEEL LIKE:CONTINOUS, BURNING, ACHING, STABBING NURSING NOTE: -. PAIN CENTER INTAKE QUESTIONS: DO YOU HAVE A HISTORY OF MRSA? :NO DO YOU TAKE A BLOOD THINNERS? :NO DO YOU HAVE ANY BLEEDING DISORDERS? :NO ANY NEW NUMBNESS OR WEAKNESS IN YOUR LEGS OR ARMS? :NO ANY PACEMAKER,DEFIBRILLATOR, OR DORSAL COLUMN STIMULATOR? :YES DCS DO YOU HAVE ANY RASHES OR OPEN SORES? :NO ARE YOU ALLERGIC TO IV DYE? :NO ARE YOU DIABETIC? :NO ANY NEW PROBLEMS WITH YOUR MEDICATIONS? :NO HAVE YOU RECEIVED A VACCINE IN THE PAST 30 DAYS? :NO DO YOU PLAN TO RECEIVE A VACCINE IN THE NEXT 21 DAYS? :NO DO YOU NEED ANY PRESCRIPTION? :YES TIZANIDINE, TRAMADOL, NUCYNTA, AND GABAPENTIN DO YOU TAKE ANY IMMUNOSUPPRESSIVE MEDICATIONS? :YES ALLOPURINOL AND COLCHICINE IS THERE A CHANCE YOU COULD BE ? :NO ARE YOU BREAST FEEDING? :NO CURRENT MEDICATIONS TAKING ALLOPURINOL 300 MG TABLET 2 TABLET ORALLY ONCE A DAY TAKING COLCHICINE 0.6 MG TABLET ONE TAB ORALLY EVERY 12 HOURS PRN PAIN TAKING VITAMIN D (ERGOCALCIFEROL) 92050 UNIT CAPSULE 1 CAPSULE ORALLY WEEKLY TAKING ESCITALOPRAM OXALATE 20 MG TABLET 1 TABLET ORALLY ONCE A DAY TAKING PRAZOSIN HCL 2 MG CAPSULE 2 CAPSULES AT BEDTIME ORALLY ONCE A DAY TAKING TIZANIDINE HCL 4 MG TABLET 1 TABLET NEEDED ORALLY FOR SPASMS AND PAIN AT BEDTIME MAY REPEAT IN 5 HRS MDD2 TAKING GABAPENTIN 400 MG CAPSULE 1 CAPSULE ORALLY BID TAKING HYDROCODONE-ACETAMINOPHEN 7.5-325 MG TABLET 1 TABLET NEEDED ORALLY EVERY 6 HRS PRN MDD4 NOT-TAKING NUCYNTA ER 50 MG TABLET EXTENDED RELEASE 12 HOUR 1 TABLET ORALLY EVERY 12 HRS MDD2 NOT-TAKING MAY USE MEDICAL MARIJUANA NOT-TAKING BUTRANS 10 MCG/HR PATCH WEEKLY 1 PATCH TO SKIN TRANSDERMAL [id number]=LGD NOT-TAKING NUCYNTA ER 100 MG TABLET EXTENDED RELEASE 12 HOUR 1 TABLET ORALLY EVERY 12 HRS MDD2 NOT-TAKING PERCOCET 10-325 MG TABLET 1 TABLET NEEDED ORALLY BID MEDICATION LIST REVIEWED AND RECONCILED WITH THE PATIENT PAST MEDICAL HISTORY CHRONIC LOW BACK PAIN GOUT SLEEP APNEA WITH CPAP REFLUX PTSD HIP PAIN -BILATERAL AVASCULAR NECROSIS BILAT HIPS DX 03/2018 KIDNEY STONE UMBILICAL HERNIA ENLARGED LIVER ALLERGIES AMITRIPTYLINE HCL: DYSPNEA - SIDE EFFECTS SURGICAL HISTORY SPINAL FUSION X 2 2016 TOTAL RIGHT HIP 05/2018 DCS TRIAL 02/2019 PERMANENT DCS 04/2019 UMBILICAL HERNIA REPAIR 07/30/20 FAMILY HISTORY FATHER: ALIVE, DIAGNOSED WITH HYPERTENSION MOTHER: ALIVE, HYPERTENSION PATERNAL GRAND FATHER: OTHER MALIGNANT NEOPLASM OF UNSPECIFIED SITE MATERNAL GRAND FATHER: UNSPECIFIED HEART DISEASE MATERNAL GRAND MOTHER: DIABETES 1 BROTHER(S) , 1 SISTER(S) - HEALTHY. 1 SON(S) - HEALTHY. GRANDFATHER - PROSTATE CANCER. SOCIAL HISTORY GENERAL: TOBACCO USE ARE YOU A:NONSMOKER ADDITIONAL FINDINGS: TOBACCO USERCHEWS TOBACCO ALL DAY VAPORNO E-CIGARETTENO LATEX QUESTIONNAIRE LATEX ALLERGY : HAVE YOU EVER DEVELOPED ANY TYPE OF REACTION AFTER HANDLING LATEX PRODUCTS SUCH RUBBER GLOVES, CONDOMS, DIAPHRAGMS, BALLOONS, SOCKS, OR UNDERWEAR?NO LATEX ALLERGY : HAVE YOU EVER DEVELOPED ANY TYPE OF REACTION DURING OR AFTER DENTAL APPOINTMENT, VAGINAL/RECTAL EXAMINATION, SURGICAL PROCEDURE, OR ANY OTHER EXPOSURE?NO DATE ASKED : 08/30/2020 LATEX RISK : HAVE YOU EVER HAD ANY DIFFICULTY BREATHING OR HIVES AFTER EATING OR HANDLING ANY FRUITS, OR VEGETABLES; SUCH KIWI, BANANAS, STONE FRUITS, OR CHESTNUTSNO LATEX RISK : DO YOU HAVE A PREVIOUS PERSONAL HISTORY OF MORE THAN NINE SURGERIES, SPINA BIFIDA, OR REPEATED CATHERIZATIONS? NO LATEX RISK : ARE YOU FREQUENTLY EXPOSED TO LATEX PRODUCTS IN YOUR OCCUPATION?NO ALCOHOL USE: YES; LITTLE TO NONE. ALCOHOL SCREENING DID YOU HAVE A DRINK CONTAINING ALCOHOL IN THE PAST YEAR?YES HOW OFTEN DID YOU HAVE A DRINK CONTAINING ALCOHOL IN THE PAST YEAR?MONTHLY OR LESS (1 POINT) POINTS1 INTERPRETATIONNEGATIVE RECREATIONAL DRUG USE DRUG USE?NO CAFFEINE CAFFEINE USE?YES HOW OFTEN AND HOW MUCH? 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 DIET: REGULAR. EXERCISE: NO REGULAR EXERCISE. MARITAL STATUS: . OTHERS AT HOME: SPOUSE, CHILD. - PFS REFERRAL NEEDED?NO CLERGY REFERRAL NEEDED?NO PUBLIC HEALTH REFERRAL NEEDED?NO WAS THE PROVIDER NOTIFIED OF ANY PERTINENT INFO?YES HAS THE PATIENT BEEN EDUCATED REGARDING HIS/HER PLAN OF CARE?YES HAS THE PATIENT BEEN EDUCATED REGARDING PAIN, THE RISK FOR PAIN, THE IMPORTANCE OF EFFECTIVE PAIN MANAGEMENT, AND THE PAIN ASSESSMENT PROCESS?YES ADVANCE DIRECTIVE ADVANCE DIRECTIVE DISCUSSED WITH PATIENT:YES PT DOES NOT HAVE ANY ADVANCED DIRECTIVES, DECLINES INFORMATION ON HCP AT THIS TIME. HOSPITALIZATION/MAJOR DIAGNOSTIC PROCEDURE SEE ABOVE REVIEW OF SYSTEMS CONSTITUTIONAL: ANY RECENT FEVER NO . CHILLS NO . WEIGHT CHANGE OF UNKNOWN REASONS NO . GASTROENTEROLOGY: NEW UNEXPLAINABLE CHANGES IN BOWEL CONTROL NO . CONSTIPATION NO . GENITOURINARY: ANY NEW CHANGE IN BLADDER CONTROL? NO . NEUROLOGY: NEW ONSET DIZZINESS OR NEUROLOGICAL CHANGES NOT MENTIONED NO . NEW NUMBNESS OR PAIN PATTERNS NOT MENTIONED AND PERTINENT TO TODAY'S VISIT NO . CARDIOLOGY: NEW CHEST PRESSURE NO . PATIENT DENIES NO . RESPIRATORY: UNEXPLAINABLE COUGH NO . NEW SHORTNESS OF BREATH NO . VITAL SIGNS WT 242.2 LBS, HT 67 IN, BMI 37.93 INDEX, BP 146/86 MM HG, HR 80 /MIN, RR 18 /MIN, TEMP 98.0 F, OXYGEN SAT % 98%, SAFE IN ENV? (Y/N) YES, NA INITIALS AW 1042, REVIEWED BY: KG. EXAMINATION GENERAL EXAMINATION: GENERALAWAKE,ALERT ,PLEASANT . PSYCHAFFECT NORMAL . LUNGS:LUNG ALEMAN ARE CLEAR TO AUSCULTATION BILATERALLY. GOOD MOVEMENT OF AIR . HEART:S1, S2 IN A REGULAR RATE AND RHYTHM. NO SIGNIFICANT MURMURS, RUBS OR GALLOPS NOTED . ASSESSMENTS SPONDYLOSIS OF LUMBAR REGION WITHOUT MYELOPATHY OR RADICULOPATHY - M47.816 (PRIMARY) PRISON (CURRENT) USE OF OPIATE ANALGESIC - Z79.891 TREATMENT SPONDYLOSIS OF LUMBAR REGION WITHOUT MYELOPATHY OR RADICULOPATHY REFILL TIZANIDINE HCL TABLET, 4 MG, 1 TABLET NEEDED, ORALLY FOR SPASMS AND PAIN, AT BEDTIME MAY REPEAT IN 5 HRS MDD2, 30 DAYS, 60, REFILLS 2 INCREASE GABAPENTIN CAPSULE, 400 MG, 1 CAPSULE, ORALLY, THREE TIMES DAILY, 30 DAYS, 90, REFILLS 2 CONTINUE HYDROCODONE-ACETAMINOPHEN TABLET, 7.5-325 MG, 1 TABLET NEEDED, ORALLY, EVERY 6 HRS PRN MDD4 LAB: URINE TEST GROUP MISAEL WAITE 12/02/2020 11:43:43 AM > LAST DOSE: HYDROCODONE 12/01/2020 @6PM , GABAPENTIN @7:30AM NOTES: ISTOP REGISTRY REVIEWED AND DEMONSTRATES COMPLLIANCE. BRINGS IN MEDICATIONS WHICH IS APPROPRIATE FOR WHAT WAS DISPENSED. RECENT URINE TOXICOLOGY REVIEWED. NO UNAUTHORIZED MEDICATIONS. NO ILLICIT SUBSTANCES AND PRESCRIBED MEDICATIONS WERE PRESENT. , RISKS OF NARCOTIC/OPIOD MEDICATIONS INCLUDES BUT IS NOT LIMITED TO RISK OF DEPENDANCE/DEVELOPMENT OF ADDICTION, MOOD DISTURBANCE AND DEPRESSION, OSTEOPOROSIS, HORMONAL AND LABIDAL CHANGES, RESPIRATORY DEPRESSION AND . PATIENT IS ADVISED NOT TO DRIVE OR DRINK ALCOHOL WHILE ON THESE MEDICATIONS. PROCEDURE CODES [id number] ESTABILISHED PATIENT [facility] CHARGE DISPOSITION & COMMUNICATION FOLLOW UP 3 MONTHS (REASON: UTOX REVIEW/ASK ABOUT DC SURGICAL OPINION) ELECTRONICALLY SIGNED BY BENITA HOOKER ON 12/05/2020 AT 08:19 PM EDT DISCLAIMER : THIS IS A VISIT SUMMARY EXTRACTED FROM THE [employer] CHART. IT IS NOT A COPY OF THE [employer] PROGRESS NOTE. ESTHER
== END ==
LOC: M PAIN 11:00
PROVIDERS: ATTEND Nurse Practitioner Family
DX: M47.816 Spondylosis without myelopathy or radiculopathy, lumbar region (principal); M10.9 Gout, unspecified; G47.30 Sleep apnea, unspecified; M54.5 Low back pain; K21.9 Gastro-esophageal reflux disease without esophagitis; F43.10 Post-traumatic stress disorder, unspecified; M87.851 Other osteonecrosis, right femur; M87.852 Other osteonecrosis, left femur; F17.220 Nicotine dependence, chewing tobacco, uncomplicated; Z98.1 Arthrodesis status; Z79.891 Long term (current) use of opiate analgesic; Z79.899 Other long term (current) drug therapy; Z88.8 Allergy status to other drugs, medicaments and biological substances

== ENCOUNTER → 2021-05-11 | Outpatient (CLI) | payer OTHER, MEDICARE | LOC: M PAIN 10:15 | PROVIDERS: ATTEND Anesthesiology | DX: M96.1 Postlaminectomy syndrome, not elsewhere classified (principal); M51.16 Intervertebral disc disorders with radiculopathy, lumbar region; F17.220 Nicotine dependence, chewing tobacco, uncomplicated; Z79.891 Long term (current) use of opiate analgesic; Z79.899 Other long term (current) drug therapy ==

== ENCOUNTER → 2021-10-06 | Outpatient (CLI) | payer OTHER ==
[~2021-10-06] MED LIST changes: +TIZA10TA PO; -TIZA4TAB4 PO
== END ==
LOC: M PAIN 10:15
PROVIDERS: ATTEND Nurse Practitioner Family
DX: M96.1 Postlaminectomy syndrome, not elsewhere classified (principal); M54.50 Low back pain, unspecified; M10.9 Gout, unspecified; G47.30 Sleep apnea, unspecified; K21.9 Gastro-esophageal reflux disease without esophagitis; F43.10 Post-traumatic stress disorder, unspecified; K42.9 Umbilical hernia without obstruction or gangrene; R16.0 Hepatomegaly, not elsewhere classified; F17.220 Nicotine dependence, chewing tobacco, uncomplicated; Z79.891 Long term (current) use of opiate analgesic; Z79.899 Other long term (current) drug therapy; Z88.8 Allergy status to other drugs, medicaments and biological substances

== ENCOUNTER → 2021-12-07 | Outpatient (CLI) | payer OTHER | LOC: M PAIN 10:30 | PROVIDERS: ATTEND Anesthesiology | DX: M96.1 Postlaminectomy syndrome, not elsewhere classified (principal); M51.16 Intervertebral disc disorders with radiculopathy, lumbar region; M10.9 Gout, unspecified; G47.30 Sleep apnea, unspecified; K21.9 Gastro-esophageal reflux disease without esophagitis; F43.10 Post-traumatic stress disorder, unspecified; M87.841 Other osteonecrosis, right hand; M87.842 Other osteonecrosis, left hand; K42.9 Umbilical hernia without obstruction or gangrene; R16.0 Hepatomegaly, not elsewhere classified; Z79.891 Long term (current) use of opiate analgesic; Z79.899 Other long term (current) drug therapy ==

== ENCOUNTER → 2021-12-22 | Outpatient (CLI) | payer OTHER | LOC: M TMPAIN 15:00 → M PAIN 15:00 | PROVIDERS: ATTEND Anesthesiology | DX: M96.1 Postlaminectomy syndrome, not elsewhere classified (principal); M10.9 Gout, unspecified; M54.50 Low back pain, unspecified; G47.30 Sleep apnea, unspecified; K21.9 Gastro-esophageal reflux disease without esophagitis; F43.10 Post-traumatic stress disorder, unspecified; R16.0 Hepatomegaly, not elsewhere classified; Z79.891 Long term (current) use of opiate analgesic; Z79.899 Other long term (current) drug therapy; Z88.8 Allergy status to other drugs, medicaments and biological substances ==

== ENCOUNTER → 2022-01-27 | Outpatient (CLI) | payer OTHER | LOC: M PAIN 13:45 → M TMPAIN 13:45 | PROVIDERS: ATTEND Anesthesiology | DX: M96.1 Postlaminectomy syndrome, not elsewhere classified (principal); M54.50 Low back pain, unspecified; M10.9 Gout, unspecified; G47.30 Sleep apnea, unspecified; K21.9 Gastro-esophageal reflux disease without esophagitis; F43.10 Post-traumatic stress disorder, unspecified; Z87.442 Personal history of urinary calculi; R16.0 Hepatomegaly, not elsewhere classified; F17.220 Nicotine dependence, chewing tobacco, uncomplicated; Z79.891 Long term (current) use of opiate analgesic; Z79.899 Other long term (current) drug therapy; Z88.8 Allergy status to other drugs, medicaments and biological substances ==

== ENCOUNTER → 2022-02-13 | Outpatient (CLI) | payer OTHER ==
[~2022-02-13] MED LIST changes: +CEPH500C PO; +GABA-283; +HYDR-3716; +INDO50CA91; +PRED20TA PO
== END ==
LOC: M TMPAIN 10:45 → M PAIN 10:45
PROVIDERS: ATTEND Anesthesiology
DX: M96.1 Postlaminectomy syndrome, not elsewhere classified (principal); M54.50 Low back pain, unspecified; M10.9 Gout, unspecified; G47.30 Sleep apnea, unspecified; K21.9 Gastro-esophageal reflux disease without esophagitis; F43.10 Post-traumatic stress disorder, unspecified; M25.551 Pain in right hip; M25.552 Pain in left hip; K42.9 Umbilical hernia without obstruction or gangrene; R16.0 Hepatomegaly, not elsewhere classified; M76.51 Patellar tendinitis, right knee; Z79.891 Long term (current) use of opiate analgesic; Z79.899 Other long term (current) drug therapy; F17.220 Nicotine dependence, chewing tobacco, uncomplicated; Z88.8 Allergy status to other drugs, medicaments and biological substances

== ENCOUNTER 2022-02-14 11:14 | Emergency (ER) | payer MEDICARE, OTHER ==
[~2022-02-14] VITALS: Ht 170.2 cm; Wt 109.1 kg
[~2022-02-14 11:14] MED LIST changes: -CEPH500C PO; -GABA-283; -HYDR-3716; -INDO50CA91; -PRED20TA PO
[2022-02-14] MEDS ORDERED: HYDR-3716 (11:22)
[2022-02-14] MEDS ORDERED: GABA-283 (11:22)
[2022-02-14] MEDS ORDERED: INDO50CA91 (11:22)
[2022-02-14 13:59] LABS: BASO # 0.1 10^3/uL (0.0-0.2); BASO % 0.4 % (0.0-1.0); EOS # 0.2 10^3/uL (0.0-0.5); EOS % 1.3 % (0.0-3.0); HEMATOCRIT 44.7 % (42.0-52.0); HEMOGLOBIN 15.3 g/dl (13.5-17.5); LYMPH % 25.4 % (24.0-44.0); MEAN CORPUSCULAR HGB CONC 34.2 g/dl (32.0-36.5); MEAN CORPUSCULAR VOLUME 87.6 fl (80.0-96.0); MONO # 1.1 10^3/uL (0.0-0.8); NEUTROPHILS # 7.4 10^3/uL (1.5-8.5); NEUTROPHILS % 63.2 % (36.0-66.0); PLATELET COUNT, AUTOMATED 195 10^3/uL (150-450); WHITE BLOOD COUNT 11.7 10^3/uL (4.0-10.0)
[2022-02-14 14:16] LABS: BLOOD UREA NITROGEN 10 MG/DL (7-18); C REACTIVE PROTEIN QUANTITATIV 0.91 MG/DL (0.00-0.30); CARBON DIOXIDE LEVEL 26 MEQ/L (21-32); CHLORIDE LEVEL 105 MEQ/L (98-107); CREATININE FOR GFR 0.89 MG/DL (0.70-1.30); GLOMERULAR FILTRATION RATE > 60.0 (>60); GLUCOSE, FASTING 100 MG/DL (70-100); POTASSIUM SERUM 4.4 MEQ/L (3.5-5.1); SODIUM LEVEL 136 MEQ/L (136-145); URIC ACID 4.8 MG/DL (3.5-7.2)
[2022-02-14 14:26] LABS: ERYTHROCYTE SEDIMENTATION RATE 5 mm/hr (0-15)
[2022-02-14] MEDS ORDERED: methylPREDNISolone 125MG 2ML VIAL IV ONE (14:40)
[2022-02-14] MEDS ORDERED: PRED20TA PO (14:40)
[2022-02-14] MEDS ORDERED: CEPH500C PO (14:40)
[2022-02-14 14:54] VITALS: BP 145/91
== END 2022-02-14 14:57 | disposition home or self-care (01) ==
LOC: M ED 11:14
DX: R22.42 Localized swelling, mass and lump, left lower limb (principal); M10.9 Gout, unspecified; Z88.8 Allergy status to other drugs, medicaments and biological substances
CPT/HCPCS: 73560; 80048; 84550; 85025; 85652; 86140; 96374; 99284; J2930

== ENCOUNTER → 2022-04-21 | Outpatient (CLI) | payer OTHER ==
[~2022-04-21] MED LIST changes: +CEPH500C PO; +GABA-283; +HYDR-3716; +INDO50CA91; +PRED20TA PO
== END ==
LOC: M PAIN 10:30
PROVIDERS: ATTEND Anesthesiology
DX: M96.1 Postlaminectomy syndrome, not elsewhere classified (principal); G89.29 Other chronic pain; G47.30 Sleep apnea, unspecified; F17.220 Nicotine dependence, chewing tobacco, uncomplicated; Z96.89 Presence of other specified functional implants; Z86.59 Personal history of other mental and behavioral disorders; Z88.8 Allergy status to other drugs, medicaments and biological substances; Z79.899 Other long term (current) drug therapy

== ENCOUNTER → 2022-07-19 | Outpatient (CLI) | payer OTHER | LOC: M PAIN 08:45 | PROVIDERS: ATTEND Anesthesiology | DX: M96.1 Postlaminectomy syndrome, not elsewhere classified (principal); G89.29 Other chronic pain; G47.30 Sleep apnea, unspecified; F17.220 Nicotine dependence, chewing tobacco, uncomplicated; Z96.89 Presence of other specified functional implants; Z86.59 Personal history of other mental and behavioral disorders; Z96.641 Presence of right artificial hip joint; Z88.8 Allergy status to other drugs, medicaments and biological substances; Z79.899 Other long term (current) drug therapy ==

== ENCOUNTER → 2022-09-13 | Outpatient (CLI) | payer OTHER | LOC: M PAIN 10:45 | PROVIDERS: ATTEND Anesthesiology | DX: M96.1 Postlaminectomy syndrome, not elsewhere classified (principal); M79.18 Myalgia, other site; M54.50 Low back pain, unspecified; G89.29 Other chronic pain; M10.9 Gout, unspecified; G47.30 Sleep apnea, unspecified; K21.9 Gastro-esophageal reflux disease without esophagitis; F43.10 Post-traumatic stress disorder, unspecified; Z79.891 Long term (current) use of opiate analgesic; Z79.899 Other long term (current) drug therapy; Z88.8 Allergy status to other drugs, medicaments and biological substances ==

== ENCOUNTER → 2022-11-08 | Outpatient (CLI) | payer OTHER | LOC: M PAIN 09:00 | PROVIDERS: ATTEND Anesthesiology | DX: M96.1 Postlaminectomy syndrome, not elsewhere classified (principal); G89.29 Other chronic pain; G47.30 Sleep apnea, unspecified; F17.220 Nicotine dependence, chewing tobacco, uncomplicated; Z96.89 Presence of other specified functional implants; Z86.59 Personal history of other mental and behavioral disorders; Z96.641 Presence of right artificial hip joint; Z88.8 Allergy status to other drugs, medicaments and biological substances; Z79.899 Other long term (current) drug therapy ==

== ENCOUNTER → 2023-02-08 | Outpatient (CLI) | payer OTHER ==
[~2023-02-08] MED LIST changes: -GABA-283; +GABA-284
== END ==
LOC: M PAIN 15:00
PROVIDERS: ATTEND Anesthesiology
DX: M96.1 Postlaminectomy syndrome, not elsewhere classified (principal); G89.29 Other chronic pain; G47.30 Sleep apnea, unspecified; F17.220 Nicotine dependence, chewing tobacco, uncomplicated; Z96.89 Presence of other specified functional implants; Z86.59 Personal history of other mental and behavioral disorders; Z96.641 Presence of right artificial hip joint; Z88.8 Allergy status to other drugs, medicaments and biological substances; Z79.899 Other long term (current) drug therapy

== ENCOUNTER → 2023-04-04 | Outpatient (CLI) | payer OTHER | LOC: M PAIN 09:30 | PROVIDERS: ATTEND Anesthesiology | DX: Z53.21 Procedure and treatment not carried out due to patient leaving prior to being seen by health care provider (principal) ==

== ENCOUNTER → 2023-05-30 | Outpatient (CLI) | payer OTHER | LOC: M PAIN 11:15 | PROVIDERS: ATTEND Anesthesiology | DX: M47.816 Spondylosis without myelopathy or radiculopathy, lumbar region (principal); M96.1 Postlaminectomy syndrome, not elsewhere classified; G89.29 Other chronic pain; F17.220 Nicotine dependence, chewing tobacco, uncomplicated; Z96.89 Presence of other specified functional implants; Z88.8 Allergy status to other drugs, medicaments and biological substances; Z79.899 Other long term (current) drug therapy | CPT/HCPCS: 76000; G0463 ==

== ENCOUNTER → 2023-06-11 | Outpatient (CLI) | payer OTHER | LOC: M PAIN 12:45 | PROVIDERS: ATTEND Nurse Practitioner Family | DX: Z79.891 Long term (current) use of opiate analgesic (principal) ==

== ENCOUNTER → 2023-11-22 | Outpatient (CLI) | payer OTHER ==
[~2023-11-22] MED LIST changes: +ISOVUE-M 300 61% 15ML VIAL As Ordered ONE; +LIDOCAINE 1% SDV 30ML VIAL As Ordered ONE
== END ==
LOC: M PAIN 10:00
PROVIDERS: ATTEND Anesthesiology
DX: M47.816 Spondylosis without myelopathy or radiculopathy, lumbar region (principal); G89.29 Other chronic pain; M54.50 Low back pain, unspecified; G47.30 Sleep apnea, unspecified; F43.10 Post-traumatic stress disorder, unspecified; K21.9 Gastro-esophageal reflux disease without esophagitis; M25.551 Pain in right hip; M25.552 Pain in left hip
CPT/HCPCS: 64493; 76000; J0665; Q9967

== ENCOUNTER → 2023-12-19 | Outpatient (CLI) | payer OTHER ==
[~2023-12-19] MED LIST changes: -ISOVUE-M 300 61% 15ML VIAL As Ordered ONE; -LIDOCAINE 1% SDV 30ML VIAL As Ordered ONE
== END ==
LOC: M PAIN 10:00
PROVIDERS: ATTEND Anesthesiology
DX: M47.816 Spondylosis without myelopathy or radiculopathy, lumbar region (principal); M96.1 Postlaminectomy syndrome, not elsewhere classified; Z79.891 Long term (current) use of opiate analgesic; G89.29 Other chronic pain; M54.50 Low back pain, unspecified; M10.9 Gout, unspecified; G47.30 Sleep apnea, unspecified; K21.9 Gastro-esophageal reflux disease without esophagitis; F43.10 Post-traumatic stress disorder, unspecified; F17.220 Nicotine dependence, chewing tobacco, uncomplicated; Z79.899 Other long term (current) drug therapy; Z88.8 Allergy status to other drugs, medicaments and biological substances

== ENCOUNTER → 2024-02-13 | Outpatient (CLI) | payer OTHER | LOC: M PAIN 10:00 | PROVIDERS: ATTEND Anesthesiology | DX: M96.1 Postlaminectomy syndrome, not elsewhere classified (principal); G89.29 Other chronic pain; M54.50 Low back pain, unspecified; M10.9 Gout, unspecified; G47.30 Sleep apnea, unspecified; K21.9 Gastro-esophageal reflux disease without esophagitis; F43.10 Post-traumatic stress disorder, unspecified; R16.0 Hepatomegaly, not elsewhere classified; F17.220 Nicotine dependence, chewing tobacco, uncomplicated; Z79.891 Long term (current) use of opiate analgesic; Z79.899 Other long term (current) drug therapy; Z88.8 Allergy status to other drugs, medicaments and biological substances ==

== ENCOUNTER → 2024-04-14 | Outpatient (CLI) | payer OTHER | LOC: M PAIN 10:00 | PROVIDERS: ATTEND Nurse Practitioner Family | DX: M47.816 Spondylosis without myelopathy or radiculopathy, lumbar region (principal); M51.16 Intervertebral disc disorders with radiculopathy, lumbar region; G89.29 Other chronic pain; M10.9 Gout, unspecified; G47.30 Sleep apnea, unspecified; K21.9 Gastro-esophageal reflux disease without esophagitis; F43.10 Post-traumatic stress disorder, unspecified; R16.0 Hepatomegaly, not elsewhere classified; M87.851 Other osteonecrosis, right femur; M87.852 Other osteonecrosis, left femur; Z79.891 Long term (current) use of opiate analgesic; Z79.899 Other long term (current) drug therapy ==

== ENCOUNTER → 2024-07-10 | Outpatient (CLI) | payer OTHER | LOC: M PAIN 17:30 | PROVIDERS: ATTEND Nurse Practitioner Family | DX: M47.816 Spondylosis without myelopathy or radiculopathy, lumbar region (principal); M96.1 Postlaminectomy syndrome, not elsewhere classified; Z79.891 Long term (current) use of opiate analgesic; M51.16 Intervertebral disc disorders with radiculopathy, lumbar region; G89.29 Other chronic pain; F17.220 Nicotine dependence, chewing tobacco, uncomplicated; Z79.899 Other long term (current) drug therapy; Z88.8 Allergy status to other drugs, medicaments and biological substances ==

== ENCOUNTER → 2024-08-06 | Outpatient (CLI) | payer OTHER | LOC: M PAIN 16:15 | PROVIDERS: ATTEND Anesthesiology | DX: M96.1 Postlaminectomy syndrome, not elsewhere classified (principal); M54.50 Low back pain, unspecified; G89.29 Other chronic pain; Z88.8 Allergy status to other drugs, medicaments and biological substances; Z87.891 Personal history of nicotine dependence; Z79.899 Other long term (current) drug therapy ==